=== PATIENT | male | born 1945 | race Caucasian/White ===

== ENCOUNTER → 2023-11-07 15:39 | Outpatient (REF) | payer MEDICARE, OTHER, SELFPAY | LOC: HWRAD 15:39 | PROVIDERS: ATTENDING PHYSICIAN Internal Medicine Cardiovascular Disease; FAMILY PHYSICIAN Family Medicine | DX: I35.0 Nonrheumatic aortic (valve) stenosis (principal); I71.21 Aneurysm of the ascending aorta, without rupture | CPT/HCPCS: 71250 ==

== ENCOUNTER → 2024-03-26 15:56 | Outpatient (REF) | payer MEDICARE, OTHER, SELFPAY | LOC: HWRCS 15:56 | PROVIDERS: ATTENDING PHYSICIAN Nurse Practitioner; FAMILY PHYSICIAN Family Medicine | DX: I48.0 Paroxysmal atrial fibrillation (principal); R06.09 Other forms of dyspnea; I25.10 Atherosclerotic heart disease of native coronary artery without angina pectoris; I35.0 Nonrheumatic aortic (valve) stenosis | CPT/HCPCS: 93306 ==

== ENCOUNTER → 2024-04-10 11:39 | Outpatient (REF) | payer MEDICARE, OTHER, SELFPAY | LOC: DHCBC/DCA 11:39 | PROVIDERS: ATTENDING PHYSICIAN Nurse Practitioner; FAMILY PHYSICIAN Family Medicine | DX: I35.0 Nonrheumatic aortic (valve) stenosis (principal); R06.09 Other forms of dyspnea; I48.0 Paroxysmal atrial fibrillation; I25.10 Atherosclerotic heart disease of native coronary artery without angina pectoris; I71.21 Aneurysm of the ascending aorta, without rupture; R06.02 Shortness of breath | CPT/HCPCS: 78452; 93017; A9500 ==

== ENCOUNTER 2024-04-19 06:17 | Day surgery (SDC) | payer MEDICARE, OTHER, SELFPAY ==
[2024-04-12 09:31] VITALS: BMI 30.7
[2024-04-19 06:20] VITALS: BP 154/81
[2024-04-19] MEDS: NSS 292 ML IV (06:46)
[2024-04-19 08:46] VITALS: BP 117/70
--- NOTE | 2024-04-19 08:46 | ITS.CL.CATH ---
[employer] - Catheterization
Cardiac Catheterization
Procedure Report:
CARDIAC CATHETERIZATION REPORT
Date of Procedure: 04/19/2024
Referring: Maria Luisa Turpin MD
Indication: Exertional dyspnea with ischemic stress test in patient with moderate aortic stenosis
�
HEMODYNAMIC DATA
AO: 98/68
LV: 142/16
There is a mean gradient of 36 mmHg across aortic valve consistent with moderate to severe aortic stenosis
�
LEFT VENTRICULOGRAPHY: Hyperdynamic left ventricular wall motion with EF 71%
�
CORONARY ANGIOGRAPHY
Dominance: Right
Left Main: Calcified with 70% terminal stenosis
LAD: The LAD is severely calcified. There is 60% mid LAD stenosis distal to the takeoff of the large first septal pantograph setter. There is 80% mid LAD stenosis distal to the takeoff of the medium sized first diagonal branch. The medium sized second
diagonal branch originates about 15 mm distal to this mid LAD lesion. The LAD distal to the takeoff of D2 is a diminutive vessel which does not reach the apex. This appears to be a congenital variant and not a chronic total occlusion.
Circumflex: The circumflex has 80% ostial stenosis. OM1 is a medium sized vessel and is free of disease. The circumflex terminates with a tiny OM 2
RCA: Large dominant severely calcified vessel. There is 30% proximal RCA stenosis. There is 60-70% mid RCA stenosis just proximal to the crux. The medium to large PDA has 70% ostial stenosis. There is a 60% right AV groove lesion distal to the
takeoff of a small RPL1 and proximal to the origin of a very large RPL 2. There is 60% ostial stenosis in the medium sized terminal RPL 3
�
Closure Device: None-the procedure was performed via the right radial artery. The Dustin's test was normal prior to the procedure.
�
Radiation (mGy): 390
DAP (cm2.Gy): 41
Fluoroscopy time: 7.1 minutes
�
CONCLUSIONS
1:�Moderate to severe aortic stenosis with mean gradient 36 mmHg
2:�Hyperdynamic left ventricular wall motion with EF 71%
3. Severe calcific multivessel CAD including left main coronary artery disease as described above
4. Recommend evaluation for CABG/AVR with optimal grafting to include D1, D2 if possible, OM1, RPDA, and RPL 2 bypass grafts
�
�
Copy to: Maria Luisa Turpin MD, Max Barnett,
�
Hernandez Zeng MD, FACC, [facility]
[2024-04-19] MEDS: NSS 1000 IV (08:54)
[2024-04-19] MEDS: TOPROL XL 25 MG PO (09:01)
[2024-04-19 09:02] VITALS: BP 118/78
[2024-04-19 09:18] VITALS: BP 124/70
[2024-04-19 09:48] VITALS: BP 107/70
[2024-04-19 11:18] VITALS: BP 133/78
== END 2024-04-19 11:30 | disposition home or self-care (01) ==
LOC: CATH 06:17
PROVIDERS: ATTENDING PHYSICIAN Internal Medicine Cardiovascular Disease; FAMILY PHYSICIAN Family Medicine; OTHER PHYSICIAN Internal Medicine Cardiovascular Disease
DX: I25.10 Atherosclerotic heart disease of native coronary artery without angina pectoris (principal); I25.84 Coronary atherosclerosis due to calcified coronary lesion; I48.0 Paroxysmal atrial fibrillation; G91.2 (Idiopathic) normal pressure hydrocephalus; I35.0 Nonrheumatic aortic (valve) stenosis; Z86.73 Personal history of transient ischemic attack (TIA), and cerebral infarction without residual deficits; J84.9 Interstitial pulmonary disease, unspecified; M33.13 Other dermatomyositis without myopathy; E03.9 Hypothyroidism, unspecified; E78.5 Hyperlipidemia, unspecified; M48.00 Spinal stenosis, site unspecified; R06.09 Other forms of dyspnea; I10 Essential (primary) hypertension; Z79.82 Long term (current) use of aspirin; Z79.890 Hormone replacement therapy; R06.02 Shortness of breath; R53.83 Other fatigue; R42 Dizziness and giddiness; I45.10 Unspecified right bundle-branch block
CPT/HCPCS: 93458; C1894; Q9967

== ENCOUNTER 2024-05-13 04:52 | Inpatient (IN) | payer MEDICARE, OTHER, SELFPAY ==
[2024-05-01 12:55] LABS: Urine Albumin Negative (Neg - Trace); Urine Bilirubin Negative (Negative); Urine Character Clear (Clear); Urine Color Yellow; Urine Glucose Negative (Negative); Urine Ketone Negative (Negative); Urine Leukocyte Negative (Negative); Urine Nitrite Negative (Negative); Urine Occult Blood Negative (Negative); Urine Urobilinogen Negative (Neg - 1+)
[2024-05-01 12:58] LABS: % Basophils 0.8 % (0-2); % Eosinophils 2.5 % (0-6); % Immature Granulocytes 0.3 % (0-0.5); % Lymphocytes 20.9 % (20.5-51.1); % Monocytes 8.5 % (1.7-9.3); Absolute Basophils 0.1 10^3/uL (0-0.2); Absolute Eosinophils 0.2 10^3/uL (0-0.7); Absolute Lymphocytes 1.5 10^3/uL (1.2-3.4); Absolute Monocytes 0.6 10^3/uL (0.1-0.6); Absolute Neutrophils 4.9 10^3/uL (1.4-6.5); Hematocrit 41.6 % (39.0-52.0); Hemoglobin 14.3 g/dL (13.0-18.0); Mean Corp Hgb Conc. 34.4 g/dL (33.0-37.0); Mean Corpuscular Hgb 30.4 pg (27.0-31.0); Mean Corpuscular Volume 88.3 fL (80.0-94.0); Mean Platelet Volume 10.3 fL (7.4-10.4); Nucleated Red Blood Cells % 0 % (-); Platelet Count 206 10^3/uL (130-400); Red Blood Cell Count 4.71 10^6/uL (4.70-6.10); Red Cell Dist. Width 13.2 % (11.5-14.5); White Blood Cell Count 7.3 10^3/uL (4.8-10.8)
[2024-05-01 13:17] LABS: APTT 28.4 Sec (23.4-35.0); INR 1.08; PT 14.1 Sec (11.4-14.6)
[2024-05-01 13:29] LABS: ALT (SGPT) 23 U/L (0-50); AST (SGOT) 24 U/L (17-59); Albumin 4.5 g/dl (3.5-5.0); Alkaline Phosphatase 80 U/L (38-126); Blood Urea Nitrogen 28 mg/dl (9-20); Calcium 9.8 mg/dl (8.4-10.2); Carbon Dioxide 24 mmol/L (22-30); Chloride 104 mmol/L (98-107); Direct Bilirubin 0.2 mg/dl (0.0-0.4); Glucose 105 mg/dl (70-99); Potassium 4.3 mmol/L (3.5-5.1); Sodium 137 mmol/L (135-145); Total Bilirubin 0.5 mg/dl (0.2-1.3); Total Protein 7.5 g/dl (6.3-8.2); eGFR > 60.00
[2024-05-01 13:40] LABS: Glycohemoglobin (HgbA1c) 6.4 % (4.0-5.6)
--- NOTE | 2024-05-01 14:19 | CM ---
spoke to to pt in PAT, we discussed pre op CT surgery teaching including sternal and driving restrictions. he is prev indep, lives with his in a 2 story home with 4 steps to enter. he has a cane and a walker to use if needed. he has the ct
surgery book, soap and instructions. he is agreeable to a f/u visit from the ct transitional care nurse after dc. plan is fgor AVR/CABG 05/13, cn role explained and all questions answered
[2024-05-13] VITALS (15 sets, daily range): BP systolic 70–138; BP diastolic 49–102
[2024-05-13] MEDS: BACTROBAN 2% OINTMENT 1 APPLIC NASAL ×2 (07:09→21:41)
[2024-05-13] MEDS: LOPRESSOR 25 MG PO (07:09)
[2024-05-13] MEDS: PROTONIX 40 MG PO (07:09)
[2024-05-13] MEDS: MAGNESIUM OXIDE 500 MG PO (07:09)
--- NOTE | 2024-05-13 09:04 | W.CVOR.SURPR ---
CVOR Surgeon Immed Pre Op
-
I have examined this patient prior to performance of the scheduled procedure.
The patient's condition is unchanged from the time of the dictated/written History and
Physical and the patient is able to undergo the scheduled procedure.
[2024-05-13 09:21] LABS: Urine Albumin Negative (Neg - Trace); Urine Bilirubin Negative (Negative); Urine Character Clear (Clear); Urine Color Yellow; Urine Glucose Negative (Negative); Urine Ketone Negative (Negative); Urine Leukocyte Negative (Negative); Urine Nitrite Negative (Negative); Urine Occult Blood Negative (Negative); Urine Specific Gravity 1.005 (<1.030); Urine Urobilinogen Negative (Neg - 1+)
[2024-05-13 09:24] LABS: ACT+ - POC 93 Seconds (82-134)
--- NOTE | 2024-05-13 12:03 | CM ---
pt in OR today, cm to follow.
[2024-05-13 12:04] LABS: ACT+ - POC 683 Seconds (82-134)
[2024-05-13 12:24] LABS: B.E. - POC -1.1 mmol/L; Glucose - POC 122 mg/dl (65-99); HCO3 - POC 24 mmol/L (21-29); Hematocrit - POC 36 % PCV (42-52); Hemodilution- POC No; Hemoglobin Calculated - POC 12.2; Ionized Calcium - POC 1.25 mmol/L (1.12-1.27); O2 Saturation %Calculated-POC 99.8 5 (92-96); PCO2 - POC 40 mmHg (35-45); PO2 - POC 215 mmHg (80-100); POC Comment PRE; Sodium - POC 141 mmol/L (135-145); pH - POC 7.39 (7.35-7.45)
[2024-05-13 12:42] LABS: ACT+ - POC 716 Seconds (82-134)
[2024-05-13 13:01] LABS: B.E. - POC 1.3 mmol/L; Glucose - POC 120 mg/dl (65-99); HCO3 - POC 27 mmol/L (21-29); Hematocrit - POC 24 % PCV (42-52); Hemodilution- POC Yes; Hemoglobin Calculated - POC 8.2; O2 Saturation %Calculated-POC 99.9 5 (92-96); PCO2 - POC 44 mmHg (35-45); PO2 - POC 353 mmHg (80-100); POC Comment CPB; Potassium - POC 5.6 mmol/L (3.6-5.0); Sodium - POC 139 mmol/L (135-145); pH - POC 7.39 (7.35-7.45)
[2024-05-13 13:17] LABS: ACT+ - POC 629 Seconds (82-134)
[2024-05-13 13:35] LABS: B.E. - POC 1.4 mmol/L; Glucose - POC 138 mg/dl (65-99); HCO3 - POC 27 mmol/L (21-29); Hematocrit - POC 28 % PCV (42-52); Hemodilution- POC Yes; Hemoglobin Calculated - POC 9.7; Ionized Calcium - POC 1.11 mmol/L (1.12-1.27); O2 Saturation %Calculated-POC 99.9 5 (92-96); PCO2 - POC 45 mmHg (35-45); PO2 - POC 316 mmHg (80-100); POC Comment CPB; Sodium - POC 140 mmol/L (135-145); pH - POC 7.38 (7.35-7.45)
[2024-05-13 13:47] LABS: ACT+ - POC 595 Seconds (82-134)
[2024-05-13 14:16] LABS: B.E. - POC 0.9 mmol/L; Glucose - POC 149 mg/dl (65-99); HCO3 - POC 26 mmol/L (21-29); Hematocrit - POC 26 % PCV (42-52); Hemodilution- POC Yes; Hemoglobin Calculated - POC 8.7; Ionized Calcium - POC 1.07 mmol/L (1.12-1.27); O2 Saturation %Calculated-POC 99.4 5 (92-96); PCO2 - POC 41 mmHg (35-45); PO2 - POC 156 mmHg (80-100); POC Comment CPB; Potassium - POC 5.4 mmol/L (3.6-5.0); Sodium - POC 139 mmol/L (135-145); pH - POC 7.41 (7.35-7.45)
[2024-05-13 14:26] LABS: ACT+ - POC 507 Seconds (82-134)
[2024-05-13 14:59] LABS: B.E. - POC 1.7 mmol/L; Glucose - POC 144 mg/dl (65-99); HCO3 - POC 26 mmol/L (21-29); Hematocrit - POC 26 % PCV (42-52); Hemodilution- POC Yes; Hemoglobin Calculated - POC 8.8; O2 Saturation %Calculated-POC 99.9 5 (92-96); PCO2 - POC 39 mmHg (35-45); PO2 - POC 316 mmHg (80-100); POC Comment CPB; Potassium - POC 6.2 mmol/L (3.6-5.0); Sodium - POC 139 mmol/L (135-145); pH - POC 7.44 (7.35-7.45)
[2024-05-13 15:10] LABS: ACT+ - POC 650 Seconds (82-134)
[2024-05-13 15:30] LABS: B.E. - POC 0.5 mmol/L; Glucose - POC 220 mg/dl (65-99); HCO3 - POC 25 mmol/L (21-29); Hematocrit - POC 30 % PCV (42-52); Hemodilution- POC Yes; Hemoglobin Calculated - POC 10.1; Ionized Calcium - POC 1.09 mmol/L (1.12-1.27); O2 Saturation %Calculated-POC 99.7 5 (92-96); PCO2 - POC 39 mmHg (35-45); PO2 - POC 195 mmHg (80-100); POC Comment CPB; Potassium - POC 4.6 mmol/L (3.6-5.0); Sodium - POC 141 mmol/L (135-145); pH - POC 7.42 (7.35-7.45)
[2024-05-13 15:47] LABS: ACT+ - POC 546 Seconds (82-134)
[2024-05-13 16:08] LABS: B.E. - POC 0.6 mmol/L; Glucose - POC 160 mg/dl (65-99); HCO3 - POC 26 mmol/L (21-29); Hematocrit - POC 29 % PCV (42-52); Hemodilution- POC Yes; Hemoglobin Calculated - POC 9.9; Ionized Calcium - POC 1.11 mmol/L (1.12-1.27); O2 Saturation %Calculated-POC 99.7 5 (92-96); PCO2 - POC 43 mmHg (35-45); PO2 - POC 211 mmHg (80-100); POC Comment WARM; Potassium - POC 4.5 mmol/L (3.6-5.0); Sodium - POC 142 mmol/L (135-145); pH - POC 7.38 (7.35-7.45)
[2024-05-13 16:19] LABS: ACT+ - POC 535 Seconds (82-134)
[2024-05-13 16:35] LABS: B.E. - POC 0.1 mmol/L; Glucose - POC 146 mg/dl (65-99); HCO3 - POC 25 mmol/L (21-29); Hematocrit - POC 27 % PCV (42-52); Hemodilution- POC Yes; Hemoglobin Calculated - POC 9.1; Ionized Calcium - POC 1.06 mmol/L (1.12-1.27); O2 Saturation %Calculated-POC 99.6 5 (92-96); PCO2 - POC 42 mmHg (35-45); PO2 - POC 186 mmHg (80-100); POC Comment CPB; Potassium - POC 4.5 mmol/L (3.6-5.0); Sodium - POC 143 mmol/L (135-145); pH - POC 7.39 (7.35-7.45)
[2024-05-13 16:40] LABS: ACT+ - POC 126 Seconds (82-134)
[2024-05-13 17:01] LABS: B.E. - POC -3.1 mmol/L; Glucose - POC 128 mg/dl (65-99); HCO3 - POC 23 mmol/L (21-29); Hematocrit - POC 25 % PCV (42-52); Hemodilution- POC Yes; Hemoglobin Calculated - POC 8.5; PCO2 - POC 42 mmHg (35-45); PO2 - POC 111 mmHg (80-100); POC Comment POST; Potassium - POC 3.8 mmol/L (3.6-5.0); Sodium - POC 143 mmol/L (135-145); pH - POC 7.34 (7.35-7.45)
--- NOTE | 2024-05-13 17:10 | W.IMMPOSTOP ---
Addendum entered and electronically signed by Misael Kingston MD 05/13/24 18:59:
[id number]
Original Note:
Surgical Immed Post Op Note
-
CARDIAC SURGERY OPERATIVE NOTE:
Preoperative Dx:
Multivessel CAD
Dwnqbcoo-hl-whawfl aortic stenosis (P/M: 49/29 on ECHO, mean 36mmHg at cath)
Enoy-fm-uksqijua MR w/ dense MAC
Postoperative Dx:
Same
Severe pleural/pericarditis w/ dense B/L pleural and pericardial adhesions
Procedures:
1) Median sternotomy
2) Takedown of NANCY (narrow pedicle; extrapleural harvest secondary to dense pleural adhesions
3) Endoscopic harvest/prep of LLE GSV
4) Extensive lysis of circumferential pericardial adhesions (off/on CPB)
5) CABG x 4 (NANCY to LAD, GSV to D, GSV to OM, GSV to RPDA)
6) AVR (#25 Inspiris Resilia)
Surgeon:
Misael Kingston M.D.
Assistants:
Mei Sanchez P.A.-C.; endoscopic LLE GSV harvest/prep; librarian assistant throughout, closure
Merlyn Donovan P.A.-C.; closure of LLE GSV harvest incisions
Priyank Arriaza-CBi; closure (qtnysw-lplc-omka)
Perfusion:
Napoleon Gilbert CBiC.P.; CPB: 252min, XC: 208min
Anesthesia:
Robert Guillen M.D.
Findings:
Dense B/L pleural adhesions
Dense, circumferential pericardial adhesions w/ scattered calcifications
NANCY was healthy, but small caliber vessel, with brisk blood flow; ELD 1.5mm
GSV was healthy conduit w/ ELD 2.5mm-3.0mm
LAD was visible on epicardial surface. It was a small vessel with extremely dense calcifications throughout its course; ELD 1.2mm at midpoint anastomosis
D1 was visible on epicardial surface. It was a small vessel with extremely dense calcifications throughout its course; ELD 1.5mm at upy-cb-mhtkqk anastomosis
OM was visible on the epicardial surface, despite a small but favorable surface profile, on arteriotomy, this vessel had an ELD of < 1mm. It would not accomodate at 1mm shunt. Fortunately, its shen at this location were relatively normal
RPDA was visible on the epicardial surface. It was a reasonably sized vessel with extremely dense calcifications throughout its course. It had an ELD 1.75mm at proximal anastomosis. Unfortunately, this vessel suffered longitudinal tear upon
pressurization of the GSV. Thankfully, this was able to be successfully addressed w/ takedown of the index operation, and re-anastomosis over a longer arteriotomy w/ incorporation of the tear.
AV was trileaflet w/ dense leaflet calcifications. There was minor annular extensions of calcifications circumferentially.
Post-MARKOS: Well seated AVR w/o AI/PVL, mean gradient 6mmHg, normal LV function w/ LVEF 60-65%, normal RV. Ioja-db-vdmiikdn MR.
Transfusion:
1pk PLTS
Implants:
CT x 4
Sternal wires x 10
Condition:
71 sinus w/ isoelectric STs. 105/52. 34/17. CVP 14. CO/CI: 3.9/1.83
GTTS: levophed 8, dobutamine 3, precedex 0.5, insulin 1
Stable/guarded to CVICU
--- NOTE | 2024-05-13 17:52 | W.PN.UPDATE ---
Update Note
Progress Note Update
78-year-old male electively admitted on 05/13/2024 for aortic valve replacement, CABG due to severe aortic stenosis and triple-vessel coronary disease with preserved EF
IV fluids: 2000
U.O.:� 740
Blood:� 1 plt
Wires:� 2 V-wires
Gtts: Levo, Precedex, Insulin
�
NEURO: sedated on Precedex, pupils +3mm B/L
RESP: #8OT @24cm> 500/60%/08/22. Lungs clear B/L. 2 mediastinal (35cc on arrival) and R/L pleural (90cc on arrival) chest tubes to -20cm suction. Sanguineous drainage
CV: RRR +S1, S2, no S3, no�rub, no murmur. Aquacell to median sternotomy. RIJ w/Henderson locked @45cm. PA ; CVP 12; C.O XX/CI XX
ABD: round, soft, no BS
EXT: no edema, +2/4 DP pulses B/L, no femoral bruit, LLE NORMAN wrap intact; left radial A-line intact
: Norman with clear yellow urine
�
A/P: POD #0 s/p AVR (#25 Inspiris Resilia), CABG x 4 (NANCY to LAD, GSV to Diag, GSV to OM, GSV to RPDA) with extensive lysis of circumferential pericardial adhesions (off/on CPB)
MARKOS: EF�65%
- wean Levophed as tolerated
- wean and extubate
- will need instruction regarding antibiotic prophylaxis for dental and invasive procedures
# CAD
- will require ASA/Plavix, statin, beta-santiago
�
# acute surgical blood loss anemia-expected
- trend CBC
�
# Hx left lacunar CVA
# Hx PATENT LEGAL ASSISTANT hydrocephalus w/shunt
- assess neuro status as awakens from anesthesia
# Hypothyroidism
- resume Synthroid 12.5mg daily 05/14
�
# hyperglycemia, pre-diabetes (A1C 6.4)
- insulin infusion x 24h
- on no home meds
�
--- NOTE | 2024-05-13 18:00 | PTCARENOTE ---
Post Op: AVR/CABG x4 (MI--LDA, GSV--D,OM,RPDA), CVOR @ 0830 given 1 unit of Plt. CVOR @ 1740 Intubated FIO2 60%, CT x4 R&L P, MS x2, Rt IJ cordis, [place], Lt radial [place], garcia, Levo @10, Dobu @ 3, Insulin @ 1, Percedex @ 0.5, Cardine @ 5 but stop
once pt arrived. Post op hgb 8.6 order 1 unit of PRBC, hypotension given 250ml LR bolus, Remi chloride 1g x1, CO/CI 3.76/1.75 post op. CI repeat 1.76-->1.19 increased dobu 3-->5.
[2024-05-13 18:05] LABS: B.E. -3.1 mmol/L; HCO3 22.7 mmol/L (21-28); Ionized Calcium 1.14 mMOL/L (1.15-1.33); PCO2 43 mmHg (35-48); PO2 128 mmHg (83-108); Potassium 4.1 mMOL/L (3.5-5.1); Sodium 138 mMOL/L (136-145); pH 7.33 (7.35-7.45)
[2024-05-13 18:07] LABS: Glucose - Point of Care 158 mg/dl (70-99)
[2024-05-13 18:08] LABS: Hematocrit 24.1 % (39.0-52.0); Hemoglobin 8.6 g/dL (13.0-18.0); Platelet Count 137 10^3/uL (130-400)
[2024-05-13 18:10] LABS: Mixed Venous O2 Saturation 53.1 %
[2024-05-13 18:15] LABS: APTT 34.9 Sec (23.4-35.0); INR 1.64; PT 19.3 Sec (11.4-14.6)
[2024-05-13 18:18] LABS: Blood Urea Nitrogen 22 mg/dl (9-20); Glucose 135 mg/dl (70-99); Magnesium 3.2 mg/dl (1.6-2.3)
--- NOTE | 2024-05-13 18:19 | CON.INTV ---
Consultation
Consultation Request
Date/Time Consultation Requested: 05/13/2024
Date/Time Consultation Performed: 05/13/2024
Requesting Provider: Dr. Kingston
Performing Provider: Dr. Enrique Berger
Reason for Consultation: Postoperative ICU care status post AVR and CABG
Medical History
Past Medical History
Past Medical History: Other ( see assessment and plan section)
Social History
Tobacco: Non-smoker
Alcohol: Occasional (Rare)
Drug: None
Employment: Retired
Family History
Family History: Unable to Obtain
Allergies / Home Medications
Allergies
Allergy/AdvReac Type Severity Reaction Status Date / Time
No Known Allergies Allergy Verified 04/19/24 06:52
Home Medications
�Medication �Instructions �Recorded �Confirmed �Last Taken �Type
Endotheal Defense 1 cap PO DAILY Supplement 06/04/20 05/13/24 05/10/24 17:00 History
levothyroxine 25 mcg tablet 12.5 mcg PO DAILY Thyroid 06/04/20 05/13/24 05/12/24 08:00 History
Asilica Complex 1 unit PO DAILY 04/11/24 05/13/24 05/10/24 17:00 History
Elderberry 2 gum PO DAILY 04/11/24 05/13/24 05/10/24 08:00 History
Heal And Soothe 2 unit PO DAILY 04/11/24 05/13/24 05/10/24 History
Lipasonin Melatonin 1 unit PO HS 04/11/24 05/13/24 05/10/24 History
Lj 100 1 unit PO DAILY 04/11/24 05/13/24 05/10/24 History
ashwagandha extract 2 tab PO DAILY 04/11/24 05/13/24 05/10/24 08:00 History
pcrooix-nrjvxcjze-ynpl 333 mg-133 2 tab PO QPM 04/11/24 05/13/24 05/10/24 17:00 History
mg-5 mg tablet
oregano oil 1 dose PO QPM 04/11/24 05/13/24 05/10/24 History
atorvastatin 40 mg tablet 40 mg PO QPM #90 tabs 04/19/24 05/13/24 05/12/24 08:00 Rx
metoprolol succinate 25 mg 25 mg PO DAILY #90 tabs 04/19/24 05/13/24 05/12/24 Rx
tablet,extended release 24 hr
Antartic Krill Oil 1 unit PO DAILY 04/29/24 05/13/24 05/10/24 08:00 History
Berberine Gluco Gold 1 unit PO BID 04/29/24 05/13/24 05/10/24 17:00 History
Dim + Bioperine 1 unit PO BID 04/29/24 05/13/24 05/10/24 17:00 History
Endotheal Defense Pom Plus 1 unit PO QPM 04/29/24 05/13/24 05/10/24 17:00 History
Eyesyl + Bioperine 2 units PO DAILY 04/29/24 05/13/24 05/10/24 History
Fungus Eliminator 2 units PO DAILY 04/29/24 05/13/24 05/10/24 History
Gi Advantage 2 units PO QPM 04/29/24 05/13/24 05/10/24 History
Juvenon Blood Benny 7 3 units PO DAILY 04/29/24 05/13/24 05/10/24 History
Stratton Q Plus Max 2 unit PO DAILY 04/29/24 05/13/24 05/10/24 History
Qsartan Bromaline 2 units PO QPM 04/29/24 05/13/24 05/10/24 History
Respir-All 3 units PO DAILY 04/29/24 05/13/24 05/10/24 History
S-acetylglutathione 100 mg tablet 100 mg PO DAILY 04/29/24 05/13/24 05/10/24 History
Silica Complex 1 unit PO BID 04/29/24 05/13/24 05/10/24 History
Solgar Iron Free Formula V 1 unit PO DAILY 04/29/24 05/13/24 05/10/24 History
Super Healthy Prostate Plus 2 units PO QPM 04/29/24 05/13/24 05/10/24 History
Vitamin K Triple Play 1 unit PO DAILY 04/29/24 05/13/24 05/10/24 History
aspirin 81 mg tablet,delayed 81 mg PO DAILY 04/29/24 05/13/24 05/12/24 08:00 History
release
cholecalciferol (vitamin D3) 125 125 mcg PO DAILY 04/29/24 05/13/24 05/10/24 17:00 History
mcg (5,000 unit) tablet (Vitamin
D3)
mycophenolate mofetil 250 mg 250 mg PO DAILY 04/29/24 05/13/24 05/10/24 History
capsule
zinc 50 mg tablet 50 mg PO DAILY 04/29/24 05/13/24 05/10/24 History
Review of Systems
-
Unable to Obtain full review of systems at this time due to: Patient Intubation
Vitals / Labs / Diagnostic Testing
Vital Signs
Temp Pulse Resp BP Pulse Ox
97 F 73 18 137/78 98
05/13/24 18:16 05/13/24 18:00 05/13/24 18:16 05/13/24 06:10 05/13/24 18:00
Lab Data
05/13/24 17:57
Laboratory Results
05/13/24
17:57
pH 7.33 L
pCO2 43
pO2 128 H
HCO3 22.7
O2 Delivery Level
Diagnostic Testing:
Physical Exam
-
HEENT: Normocephalic and Other (ET tube in place without secretions)
Cardiovascular: S1/S2 and Regular Rhythm
Respiratory: Non-Labored Respirations and Other (Chest tube in place, bloody drainage noted. No airleak)
GI: Soft and Non Distended
Neurology: Other (Intubated, mechanical ventilation. Sedated)
Skin: Warm
General: Comfortable
Assessment
-
Status post CABG x 4/AVR/extensive lysis of single pharyngeal pericardial adhesions 05/13/[address] Kingston
Postoperative mechanical ventilation
Postoperative anemia
Conditions present prior admission:
Multivessel coronary artery disease
Dermatomyositis-on low-dose CellCept
Mild interstitial lung disease
Atrial fibrillation-paroxysmal
Raynaud's syndrome
History of pericarditis
Prior MRSA infection
Right hip arthritis
Hyperlipidemia
BPH
Osteoarthritis of acromioclavicular joint
NPH
History of left lacunar CVA
Hypothyroidism
Severe aortic stenosis
Aneurysm of ascending aortic
History of right inguinal hernia repair
Right total hip arthroplasty
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
Assessment and plan:
He is doing well postop-currently on mechanical ventilation and appears comfortable.
ABG reviewed: Adequate oxygenation ventilation
Continue SIMV mode with no change
Spontaneous breathing trial per protocol once sedation wears off.
Anemia noted-no evidence of acute bleeding
Follow H&H serially-currently receiving 1 unit of packed red blood cells. Status post platelet transfusion.
Transfuse as necessary
Hemodynamics -continue with support
Currently on low-dose Levophed and dobutamine
Follow urinary output.
Renal function is normal.
Chest tube with no excessive drainage-no air leak. Bloody drainage noted. Will follow closely.
Chest x-ray reviewed 05/13/2024: Low lung volumes, ET tube in place, with no pneumothorax or fluid collections. Left lower lobe pleural effusion versus subsegmental atelectasis.
Remain nothing by mouth
Head of the bed elevation
Mild Interstitial lung disease: Appears stable baseline.
Patient is on CellCept for his diagnosis of Dermatomyositis-follows up at [facility].
Locally with Dr. Bishop.
Glycemic control per protocol
DVT prophylaxis when safe from the surgical perspective.
Critical care statement: A total of 32 minutes of critical care time was provided for this patient today. This includes management of unstable vital signs, evaluation of the patient at bedside, reviewing the patient's pertinent medical records
including ventilator settings, arterial blood gases, radiographs, microbiology, laboratory evaluations and discussion with primary team, critical care nursing, and respiratory therapy.
[2024-05-13] MEDS: NEURONTIN PO (18:52)
[2024-05-13] MEDS: PACERONE PO (18:53)
[2024-05-13] MEDS: TYLENOL PO (18:53)
[2024-05-13] MEDS: SYNTHROID PO (18:53)
[2024-05-13] MEDS: NSS IV (18:53)
[2024-05-13] MEDS: VITAMIN D3 (cholecalciferol) PO (18:53)
[2024-05-13] MEDS: LIPITOR PO (18:53)
[2024-05-13 18:55] LABS: Glucose - Point of Care 173 mg/dl (70-99)
[2024-05-13] MEDS: CALCIUM CHLORIDE 10% SYRINGE 50 MG IV (18:58)
[2024-05-13] MEDS: CALCIUM CHLORIDE 10% SYRINGE 50 ML IV (18:58)
--- NOTE | 2024-05-13 19:28 | PTCARENOTE ---
Addendum entered by Joaquin Balbuena RN 05/13/24 19:29:
to add, received pt with 1 unit of PRBC currently infusing.
Original Note:
assumed care of patient @ 1900. Received pt lying in bed, intubated, sedate. Pupils equal and reactive to light. CPOT 0 . NSR on tele monitor. Weak pedal pulses. V wire set to 40,15,2. BP 100s/50s, PAP 20s/10s, CVP around 8.0 ET tube 23 @ lip SIMV
12,500, 5/5, 40%. Lungs diminished anteriorly. 4 chest tubes present 2 meds L and R pleural to wall suction, no air leak, tidaling or crepitus noted. BS hypoactive. Norman present draining good amount of clear yellow urine. mid sternal with aquacel
CDI, L SVG sites covered with deepa wrap CDI. R IJ cordis with swan at 50, L radial a line, R ac PIV. all central lines zeroed and flushed. Received with levo at 10, dobut at 3, precedex at .5, insulin per protocol. notified CLIENT RELATIONS REPRESENTATIVE of index of 1.19,
dobutamine increased to 5.
[2024-05-13] MEDS: SODIUM BICARBONATE 50 MEQ IV ×2 (19:32→22:21)
--- NOTE | 2024-05-13 19:52 | PTCARENOTE ---
1 amp bicarb and additional unit of blood given per CTPA
[2024-05-13 19:57] LABS: Glucose - Point of Care 132 mg/dl (70-99)
[2024-05-13] MEDS: CALCIUM CHLORIDE 10% SYRINGE 60 MG IV (20:38)
[2024-05-13 21:03] LABS: Glucose - Point of Care 141 mg/dl (70-99)
--- NOTE | 2024-05-13 21:36 | PTCARENOTE ---
pt awake and following commands. precedex turned off, CPAP trial initiated by RT
[2024-05-13 22:00] LABS: Glucose - Point of Care 129 mg/dl (70-99)
[2024-05-13 22:13] LABS: HCO3 22.2 mmol/L (21-28); Ionized Calcium 1.37 mMOL/L (1.15-1.33); O2 Saturation % 99.6 % (94-98); PCO2 35 mmHg (35-48); PO2 118 mmHg (83-108); Potassium 4.3 mMOL/L (3.5-5.1); pH 7.41 (7.35-7.45)
[2024-05-13] MEDS: LEVOPHED 250 IV (22:14)
--- NOTE | 2024-05-13 22:30 | PTCARENOTE ---
pt extubated to 6L NC without incident
[2024-05-13 22:32] LABS: Hematocrit 30.3 % (39.0-52.0); Platelet Count 138 10^3/uL (130-400)
--- NOTE | 2024-05-13 22:38 | RESPNOTE ---
pt extubated at 2230 per MD order. pt suctioned down ETT and orally prior to extubation, pt extubated without incident. pt able to vocalize, no stridor present. placed on 6L NC at this time, tolerating well
[2024-05-13] MEDS: LOW STRENGTH ASPIRIN 81 MG PO (23:02)
[2024-05-13 23:14] LABS: Glucose - Point of Care 121 mg/dl (70-99)
[2024-05-13] MEDS: NEURONTIN 100 MG PO (23:45)
[2024-05-13] MEDS: TYLENOL 1000 MG PO (23:45)
[2024-05-13] MEDS: SENOKOT-S PO (23:45)
--- NOTE | 2024-05-13 23:55 | PTCARENOTE ---
pt was talking on phone with and started to feel nauseous. pt had a syncopal episode. Bp 70/50 levo increased to 20, HOB down, BP increased 100/55, pt AAOx3, tolerating sitting up in bed, call kelly within reach
[2024-05-14] VITALS (29 sets, daily range): BP systolic 50–148; BP diastolic 24–73; PULSE 86; O2SAT 95; BMI 31.9
[2024-05-14] MEDS: PACERONE PO (00:21)
[2024-05-14 01:05] LABS: Glucose - Point of Care 119 mg/dl (70-99)
[2024-05-14] MEDS: ANCEF 5 IV ×3 (01:10→16:11)
--- NOTE | 2024-05-14 03:00 | PTCARENOTE ---
EKG and routine labs complete, CHG bath completed, notified CT PA of low UO, pt remains on high dose levo, no other change in assessment.
[2024-05-14 03:13] LABS: Glucose - Point of Care 148 mg/dl (70-99)
[2024-05-14 03:20] LABS: Mixed Venous O2 Saturation 50.7 %
[2024-05-14 03:22] LABS: Hematocrit 27.3 % (39.0-52.0); Ionized Calcium 1.23 mMOL/L (1.15-1.33); Mean Corp Hgb Conc. 36.6 g/dL (33.0-37.0); Mean Corpuscular Hgb 29.9 pg (27.0-31.0); Mean Corpuscular Volume 81.5 fL (80.0-94.0); Mean Platelet Volume 10.6 fL (7.4-10.4); Platelet Count 131 10^3/uL (130-400); Red Blood Cell Count 3.35 10^6/uL (4.70-6.10); Red Cell Dist. Width 13.9 % (11.5-14.5); White Blood Cell Count 11.9 10^3/uL (4.8-10.8)
--- NOTE | 2024-05-14 03:26 | W.PN.CT ---
Today's Communication / Plan
-
Plan:
-No major issues overnight. Hemodynamically and neurologically intact. Did have vasovagal episode while on the phone with his postextubation
-Successfully extubated on 05/13/24 @ 2230
-On Levophed gtt @, dobutamine @ 5, Levophed @ 7, and insulin gtt per protocol
-Last CI 1.67, MVO 50.7% U/O since OR 500 mL
-Cont. current meds (ASA, Plavix, Lipitor; Amiodarone and Lopressor on hole while on Dobutamine @ 5)
-Weaned off dobutamine and levophed
-D/C swan and a-line once off dobutamine and Levophed
-Maintain garcia given postop HELENA (1.4)
-Telemetry phase today once off insulin gtt
-Monitor chest tube drainage: 2Meds 170/205, 2pls 225/225
-Maintain cordis
-Maintain temporary wires (will d/c before home)
-OOB into chair/Ambulate
Assessment / Plan
-
Assessment:
-S/p Median sternotomy/CABG x 4 (NANCY to LAD, GSV to D, GSV to OM, GSV to RPDA)/Endoscopic harvest/prep of LLE GSV/AVR (#25 Inspiris Resilia)/Extensive lysis of circumferential pericardial adhesions (off/on CPB), by Dr. Kingston, 05/13/24, pod#1
-Severe 3v CAD/70% distal LM
-Nkrviobt-mv-uuewzb aortic stenosis (P/M: 49/29 on ECHO, mean 36mmHg at cath)
-Nspu-rb-qgxkydlq MR w/ dense MAC
-LVEF 60-65% per intraop MARKOS
-PAF
-HTN
-HLD
-Class 1 obesity (BMI 30)
-Prediabetes (hgb A1C 6.4)
-Hypothyroidism
-BPH
-Hx Pericarditis
-Hx MRSA
-Raynaud's syndrome
-Osteoarthritis of Left acromioclavicular joint
-Right hip arthritis
-Spinal stenosis
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
-Mild interstitial lung disease
-Hx of left lacunar CVA
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
-S/p right inguinal hernia repair
-S/p Right total hip arthroplasty
-Acute postop blood loss/Anemia (received 3u PRBC's, 1 {5pk} plts )
-Acute postop atelectasis
-Acute postop hypovolemia with subsequent hypervolemia
-Acute postop HELENA
-Acute postop vasovagal episode, with brief confusion
Discussed patient care with: Cardiology, Nursing, Respiratory Therapy, Pharmacy and Care Team
Subjective
Procedure
S/p Median sternotomy/CABG x 4 (NANCY to LAD, GSV to D, GSV to OM, GSV to RPDA)/Endoscopic harvest/prep of LLE GSV/AVR (#25 Inspiris Resilia)/Extensive lysis of circumferential pericardial adhesions (off/on CPB), by Dr. Kingston, 05/13/24, pod#1
-
Date of Service: May 14, 2024
Pt c/o incisional pain, otherwise feels well
Objective Data
-
Lab Results
05/14/24 03:02
PT 19.3 Sec (11.4-14.6) H 05/13/24 17:57
INR 1.64 05/13/24 17:57
APTT 34.9 Sec (23.4-35.0) 05/13/24 17:57
Vital Signs
Vital Signs
Temp Pulse Resp BP Pulse Ox
99.0 F 87 22 81/47 92
05/14/24 03:00 05/14/24 03:15 05/14/24 03:15 05/14/24 02:01 05/14/24 03:15
CT Intake/Output/Weight
05/13/24 05/13/24 05/14/24
06:59 18:59 06:59
Intake Total 329.3 / 1570.3 1241.0 / 1570.3
Output Total 225 / 900 675 / 900
Balance 104.3 / 670.3 566.0 / 670.3
SaO2: 92 (4L)
Physical Exam
-
General: Awake, Oriented and AOx3
Cardiovascular: Regular rate & rhythm, No Murmurs, No Rub and No Gallop
Respiratory: Decreased Breath Sounds (at bases, otherwise clear)
Sternum: Stable
Incision: Clean, Dry, Intact and Dressing Intact
Extremities: Other (trace edema)
Data Reviewed
-
Lab Results: Results Reviewed
Medications: Active Meds Reviewed
Chest X-Ray: Report Reviewed and Image Reviewed
CT Scan: Report Reviewed and Image Reviewed
ECG: Report Reviewed and Image Reviewed
[2024-05-14 03:35] LABS: INR 1.33; PT 16.3 Sec (11.4-14.6)
[2024-05-14 03:40] LABS: Blood Urea Nitrogen 27 mg/dl (9-20); Calcium 9.2 mg/dl (8.4-10.2); Carbon Dioxide 23 mmol/L (22-30); Chloride 108 mmol/L (98-107); Estimated Creatinine Clearance 46 ml/min; Glucose 136 mg/dl (70-99); Magnesium 2.6 mg/dl (1.6-2.3); Potassium 4.6 mmol/L (3.5-5.1); Sodium 141 mmol/L (135-145); eGFR 51.77
[2024-05-14] MEDS: LEVOPHED 250 IV (03:49)
[2024-05-14 04:06] LABS: Glucose - Point of Care 124 mg/dl (70-99)
--- NOTE | 2024-05-14 04:26 | PTCARENOTE ---
1 unit PRBC ordered by MARIA M VICTOR and started at [id number]
[2024-05-14 04:58] LABS: Glucose - Point of Care 121 mg/dl (70-99)
[2024-05-14] MEDS: SYNTHROID 12.5 MCG PO (06:12)
[2024-05-14] MEDS: TYLENOL 1000 MG PO ×3 (06:12→21:07)
[2024-05-14] MEDS: CALCIUM CHLORIDE 10% SYRINGE 60 MG IV (06:18)
[2024-05-14 07:31] LABS: Glucose - Point of Care 104 mg/dl (70-99)
[2024-05-14 07:31] LABS: Glucose - Point of Care 120 mg/dl (70-99)
[2024-05-14 07:47] LABS: B.E. -1.6 mmol/L; HCO3 22.9 mmol/L (21-28); Ionized Calcium 1.37 mMOL/L (1.15-1.33); O2 Saturation % 96.9 % (94-98); PCO2 37 mmHg (35-48); PO2 69 mmHg (83-108); Potassium 4.5 mMOL/L (3.5-5.1); Sodium 137 mMOL/L (136-145)
[2024-05-14] MEDS: PLAVIX 75 MG PO (07:58)
[2024-05-14] MEDS: LOW STRENGTH ASPIRIN 81 MG PO (07:58)
[2024-05-14] MEDS: BACTROBAN 2% OINTMENT 1 APPLIC NASAL ×2 (08:02→21:08)
[2024-05-14] MEDS: VITAMIN D3 (cholecalciferol) 125 MCG PO (08:03)
[2024-05-14] MEDS: SENOKOT-S 1 TABLET PO ×2 (08:03→21:07)
[2024-05-14] MEDS: PROTONIX 40 MG PO (08:03)
[2024-05-14] MEDS: LIDOCAINE 4% PATCH 1 PATCH TOPICAL (08:03)
[2024-05-14] MEDS: NEURONTIN 100 MG PO ×3 (08:03→21:07)
--- NOTE | 2024-05-14 08:21 | W.PN.ANS.POP ---
Anesthesia Post Operative
- Anesthesia Post Op Note
Vital Signs Stable-See Nursing Note: Yes
Airway Patent: Yes
Adequate Pain Control: Yes
Change in Mental Status: No
Current Postoperative Nausea & Vomiting: No
Anesthesia Complications: No
General Anesthetic Recall: No
Unplanned Admission: No
Post Op Hydration Adequate: Yes
[2024-05-14 08:23] LABS: Glucose - Point of Care 110 mg/dl (70-99)
--- NOTE | 2024-05-14 08:53 | W.PN.CD ---
Today's Communication / Plan
-
-Continue supportive care and management as directed by CT Surgery.
Impression / Plan
-
78-year-old male with CAD and aortic stenosis status-post CABG x 4/bioprosthetic AVR on 05/13/2024.
CABG x 4/bioprosthetic AVR on 05/13/2024:
-Clinically stable; extubated post OR.
-On low-dose Levophed.
-Continue supportive care and management as directed by CT Surgery.
-Resume beta-santiago when able.
PAF:
-Resume beta-santiago when able.
-Not on anticoagulation as an outpatient.
Hyperlipidemia:
-Continue statin.
ILD:
-Pulmonary following.
Physical Exam
Vital Signs/Labs
Vital Signs
Temp Pulse Resp BP Pulse Ox
98 F 86 22 144/73 95
05/14/24 08:00 05/14/24 08:15 05/14/24 08:15 05/14/24 08:00 05/14/24 08:15
05/13/24 05/14/24 05/15/24
06:59 06:59 06:59
Actual Weight 94.8 kg 103.6 kg
05/14/24 03:02
05/14/24 03:02
PT 16.3 Sec (11.4-14.6) H 05/14/24 03:02
INR 1.33 05/14/24 03:02
APTT 34.9 Sec (23.4-35.0) 05/13/24 17:57
Magnesium 2.6 mg/dl (1.6-2.3) H 05/14/24 03:02
Physical Exam
Constitutional: No acute distress and Comfortable
EENT: Anicteric
Cardiovascular: Rhythm & rate is regular, Pedal edema is absent, Systolic murmur absent and S1S2 is normal
Respiratory: Respiratory effort normal and Lungs clear to auscul.
GI: Soft
Neuro/Psych: AO x 3
Other: Skin (Warm, dry, intact)
Data Reviewed
-
Date of Service: May 14, 2024
EKG: Tracing Personally Visualized and interpreted (Sinus rhythm)
Critical Care Time (in minutes): 33
--- NOTE | 2024-05-14 09:03 | PTCARENOTE ---
Received patient from evening or night nurse supervisor RN. Patient awake and alert, responding appropriately. NSR on monitor, rates in the 80-90's. The patient's left dorsalis pedis pulse heard on Doppler, RDP normal to palpation. +1 edema to LLE, graft sites CDI, a
small amount of serosanguineous drainage on the deepa wrap. Patient on 4LNC, O2 sat 93%. Abdomen SNT, +BS, patient reports his last BM yesterday prior to admission. Norman catheter in place, draining clear yellow urine. Patient's midsternal chest
incision covered with Aquacel, old scant drainage. CT x4 with a small amount of serosanguineous drainage. L groin intact. Patient with R IJ cordis and swan mile catheter intact. Patient on Levo, dobutamine, and insulin gtt per protocol. See worklist
for vital sign, assessment, and titration data. Assessment of needs ongoing.
[2024-05-14] MEDS: ZOFRAN 4 MG IV (09:38)
[2024-05-14] MEDS: DOBUTREX 500 MG 250 IV (09:40)
[2024-05-14 10:08] LABS: Glucose - Point of Care 108 mg/dl (70-99)
[2024-05-14] MEDS: NOVOLIN R INSULIN INFUSION 100 IV (11:03)
[2024-05-14 12:15] LABS: Glucose - Point of Care 92 mg/dl (70-99)
--- NOTE | 2024-05-14 12:34 | PTCARENOTE ---
Addendum entered by Lila Mejia RN 05/14/24 14:26:
Addendum to correct 3 mL Levo to 3 mcg/hr
Original Note:
Patient nauseous, small amount of emesis following breakfast, given Zofran. Levo weaned down to 3 mL/hr, see worklist. VSS, patient maintained on 4LNC, no complaints of pain, family at bedside in the morning, updates given and questions encouraged.
Insulin gtt adjusted per protocol, BGs stable at this time. Patient updated on plan of care, made comfortable and ordering lunch.
[2024-05-14 12:35] LABS: Mixed Venous O2 Saturation 53.3 %
[2024-05-14 13:32] LABS: Glucose - Point of Care 117 mg/dl (70-99)
--- NOTE | 2024-05-14 13:36 | W.PN.INTV ---
Today's Communication / Plan
Recommendations
Continue postoperative care
Increase activity as able
Incentive spirometry
Daily chest x-ray
Follow H&H-transfuse as necessary.
Follow renal function, continue with hemodynamic support-on Levophed and dobutamine.
Follow chest tube output
Analgesia
Continue cardiac management
Assessment
-
Status post CABG x 4/AVR/extensive lysis of single pharyngeal pericardial adhesions 05/13/[address] Kingston
Postoperative mechanical ventilation
Postoperative anemia
Conditions present prior admission:
Multivessel coronary artery disease
Dermatomyositis-on low-dose CellCept
Mild interstitial lung disease
Atrial fibrillation-paroxysmal
Raynaud's syndrome
History of pericarditis
Prior MRSA infection
Right hip arthritis
Hyperlipidemia
BPH
Osteoarthritis of acromioclavicular joint
NPH
History of left lacunar CVA
Hypothyroidism
Severe aortic stenosis
Aneurysm of ascending aortic
History of right inguinal hernia repair
Right total hip arthroplasty
BEZEL CUTTER shunt 09/08/2020
Assessment and plan:
Postoperative day 1 doing well.
Extubated
Encourage incentive spirometry
Increase activity per protocol
Analgesia with as needed narcotics-watch respiratory status close
Wean down FiO2.
Anemia noted-no evidence of acute bleeding
Follow H&H serially-currently receiving 2 unit of packed red blood cells.
Status post platelet transfusion.
Hemoglobin improved.
Hemodynamics -remains on low-dose Levophed and dobutamine. Hopefully can be weaned off.
Follow cardiac output and cardiac index via PA catheter.
Arterial line in place.
Follow BMP
Creatinine slightly increased, urinary output dropping. Norman in place for
Will continue with hemodynamic support,
Chest tube with no excessive drainage-no air leak.
Chest x-ray reviewed 05/14/2024: Reviewed showed postoperative changes. Mild left lower lobe atelectasis
Advance diet
Head of the bed elevation
Mild Interstitial lung disease: Appears stable baseline.
Patient is on CellCept for his diagnosis of Dermatomyositis-follows up at [facility].
Locally with Dr. Bishop.
Glycemic control per protocol
DVT prophylaxis when safe from the surgical perspective.
Critical care statement: A total of 31 minutes of critical care time was provided for this patient today. This includes management of unstable vital signs, evaluation of the patient at bedside, reviewing the patient's pertinent medical records
including ventilator settings, arterial blood gases, radiographs, microbiology, laboratory evaluations and discussion with primary team, critical care nursing, and respiratory therapy.
Subjective Dataa
Subjective Data
Date of Service:
Date of Service: May 14, 2024
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
Subjective:
No major overnight events
Extubated uneventfully
Pain is controlled
Denies shortness of breath at rest
Denies any headache or blurry vision
Review of Systems
Cardiopulmonary: Dyspnea (None at rest)
GI: Abdominal Pain (n) and Nausea (n)
Objective Data
Data Reviewed
Vital Signs / I&O / Oxygen:
Vital Signs
Temp Pulse Resp BP Pulse Ox
98.4 F 82 24 130/58 94
05/14/24 12:00 05/14/24 12:22 05/14/24 12:22 05/14/24 12:22 05/14/24 12:22
Intake and Output
05/13/24 05/14/24 05/15/24
06:59 06:59 06:59
Intake Total 2047.7 / 2212.1 810.1 / 810.1
Output Total 1020 / 1045 210 / 210
Balance 1027.7 / 1167.1 600.1 / 600.1
SaO2 [SIMV] 98
SaO2 94
Nasal Cannula flow liters per 4
minute
Physical Exam
General: Respiratory Distress (n) and Comfortable
HEENT: Normocephalic
Cardiovascular: S1-S2
Respiratory: Clear, Non-Labored Respirations and Chest Tube (No excessive drainage/no air leak)
GI: Soft and Non Distended
Neurology: Awake and Alert
Skin: Warm and Other ( incision is dressed and intact)
Labs/Micro/Reports
Lab Data
05/14/24 03:02
05/14/24 03:02
Laboratory Results
05/13/24 05/13/24 05/14/24
17:57 22:06 03:02
PT 19.3 H 16.3 H
INR 1.64 1.33
APTT 34.9
pH 7.33 L 7.41
pCO2 43 35
pO2 128 H 118 H
HCO3 22.7 22.2
O2 Delivery Level
05/14/24
07:40
PT
INR
APTT
pH 7.40
pCO2 37
pO2 69 L
HCO3 22.9
O2 Delivery Level Not Reportable
--- NOTE | 2024-05-14 16:00 | PTCARENOTE ---
Levophed weaned off. Patient's MAP high 60's-70's. Patient turned, back rub and lotion applied, fresh misa and draw sheet. No dumping from chest tubes noted. Patient boosted in bed and made comfortable. 1600 medications administered, see richard HICKEY
complaints of pain, encouraged the patient to order preferences for dinner. at bedside. Assessment of needs ongoing. VSS.
[2024-05-14 16:10] LABS: Glucose - Point of Care 121 mg/dl (70-99)
[2024-05-14] MEDS: NSS IV (16:38)
[2024-05-14 18:06] LABS: Glucose - Point of Care 97 mg/dl (70-99)
[2024-05-14] MEDS: LIPITOR 40 MG PO (18:08)
--- NOTE | 2024-05-14 19:30 | PTCARENOTE ---
assumed care of patient @ 1900. Received pt laying in bed, AOX3. No c/o pain or nausea. Afebrile. NSR on tele, HR 90s. BP elevated, Dobut turned down to 1 per pa. Index >3. PAP 30s/10s, CVP ~ 12. doppler pedals, V wire set to box, turned off. Lungs
clear, diminished on 4L NC satting mid 90s. taking shallow breaths. IS around 750. 4 chest tubes to wall suction, no air leak, tidaling or crepitus noted. Tolerating diet, BS hypoactive. garcia present draining clear yellow urine. All surgical sites
CDI. R IJ cordis with swan at 50, L radial a line, R AC PIV. all central lines zeroed, flushed. Dobut at 1, insulin per protocol . call kelly within reach. pt resting comfortably
[2024-05-14 20:14] LABS: Glucose - Point of Care 191 mg/dl (70-99)
--- NOTE | 2024-05-14 20:59 | PTCARENOTE ---
PT hypertensive 160s 170s, Nitro started at 5
[2024-05-14 21:08] LABS: Glucose - Point of Care 200 mg/dl (70-99)
[2024-05-14 23:10] LABS: Glucose - Point of Care 100 mg/dl (70-99)
[2024-05-15] VITALS (36 sets, daily range): BP systolic 60–125; BP diastolic 34–93; PULSE 84; O2SAT 94–99; BMI 31.2
--- NOTE | 2024-05-15 | PTCARENOTE ---
Index >2, dobut turned off per CTPA
[2024-05-15 01:05] LABS: Glucose - Point of Care 99 mg/dl (70-99)
[2024-05-15 03:11] LABS: Glucose - Point of Care 109 mg/dl (70-99)
[2024-05-15 03:18] LABS: Mixed Venous O2 Saturation 73.8 %
[2024-05-15 03:43] LABS: Blood Urea Nitrogen 42 mg/dl (9-20); Calcium 8.8 mg/dl (8.4-10.2); Carbon Dioxide 26 mmol/L (22-30); Chloride 106 mmol/L (98-107); Estimated Creatinine Clearance 51 ml/min; Glucose 103 mg/dl (70-99); Hemoglobin 7.5 g/dL (13.0-18.0); Magnesium 2.4 mg/dl (1.6-2.3); Mean Corp Hgb Conc. 35.7 g/dL (33.0-37.0); Mean Corpuscular Hgb 29.6 pg (27.0-31.0); Potassium 4.3 mmol/L (3.5-5.1); Red Blood Cell Count 2.53 10^6/uL (4.70-6.10); Red Cell Dist. Width 15.1 % (11.5-14.5); Sodium 138 mmol/L (135-145); White Blood Cell Count 8.6 10^3/uL (4.8-10.8); eGFR 47.65
[2024-05-15 03:45] LABS: Mean Platelet Volume 10.6 fL (7.4-10.4); Platelet Count 87 10^3/uL (130-400)
[2024-05-15 04:48] LABS: Glucose - Point of Care 95 mg/dl (70-99)
--- NOTE | 2024-05-15 05:02 | W.PN.CT ---
Addendum entered and electronically signed by Misael Kingston MD 05/15/24 16:01:
I saw and examined the patient.
The PA's note was reviewed and I agree with the note.
Comment:
Patient is doing very well today. Dobutamine has been weaned to off.
DC Billings-Vangie catheter
DC chest tubes
Maintain Norman
Transfuse
Diuresis
Original Note:
Today's Communication / Plan
-
-pod #2
-no issues overnight, pleasant, A&O x4, looking forward to getting out of bed
-CI 2.31, CO 4.97, SVR 869. Drips: Dobut off at midnight, Nitro 20, Insulin 3
-CT output: 2 meds 50/85, 2 pleur 50/95 in 12/24 hrs
-h/h 7.5/21.0 today- s/p 3 pRBCs postop
-follow platelts- 87K today (131K on 05/14)
-Cr trending up - 1.5 today (1.4 on 05/14, 1.0 on 05/13, and 1.2 preop) - follow
-follow wts.
-consider keeping Norman another 24 hrs
-current meds (ASA, Plavix, Lipitor, Protonix). BB and Amio held while on Dobutamine. Mg held d/t HELENA
-encourage IS, OOB
Assessment / Plan
-
Assessment:
-S/p Median sternotomy/CABG x 4 (NANCY to LAD, GSV to D, GSV to OM, GSV to RPDA)/Endoscopic harvest/prep of LLE GSV/AVR (#25 Inspiris Resilia)/Extensive lysis of circumferential pericardial adhesions (off/on CPB), by Dr. Kingston, 05/13/24, pod#2
-Severe 3v CAD/70% distal LM
-Apdnqnii-xk-emnqfe aortic stenosis (P/M: 49/29 on ECHO, mean 36mmHg at cath)
-Nbpc-jr-iewucfkb MR w/ dense MAC
-LVEF 60-65% per intraop MARKOS
-PAF
-HTN
-HLD
-Class 1 obesity (BMI 30)
-Prediabetes (hgb A1C 6.4)
-Hypothyroidism
-BPH
-Hx Pericarditis
-Hx MRSA
-Raynaud's syndrome
-Osteoarthritis of Left acromioclavicular joint
-Right hip arthritis
-Spinal stenosis
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
-Mild interstitial lung disease
-Hx of left lacunar CVA
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
-S/p right inguinal hernia repair
-S/p Right total hip arthroplasty
-Acute postop blood loss/Anemia (received 3u PRBC's, 1 {5pk} plts )
-Acute postop atelectasis
-Acute postop hypovolemia with subsequent hypervolemia
-Acute postop HELENA
-Acute postop vasovagal episode, with brief confusion
Discussed patient care with: Nursing and Care Team
Subjective
Procedure
S/p Median sternotomy/CABG x 4 (NANCY to LAD, GSV to D, GSV to OM, GSV to RPDA)/Endoscopic harvest/prep of LLE GSV/AVR (#25 Inspiris Resilia)/Extensive lysis of circumferential pericardial adhesions (off/on CPB), by Dr. Kingston, 05/13/24, pod#1
-
Date of Service: May 15, 2024
Objective Data
-
Lab Results
05/15/24 03:05
05/15/24 03:05
PT 16.3 Sec (11.4-14.6) H 05/14/24 03:02
INR 1.33 05/14/24 03:02
APTT 34.9 Sec (23.4-35.0) 05/13/24 17:57
Vital Signs
Vital Signs
Temp Pulse Resp BP Pulse Ox
98.5 F 90 20 111/54 93
05/15/24 03:00 05/15/24 03:15 05/15/24 03:15 05/15/24 03:00 05/15/24 03:15
CT Intake/Output/Weight
05/14/24 05/14/24 05/15/24
06:59 18:59 06:59
Intake Total 1718.4 / 2212.1 1299.8 / 1937.7 637.9 / 1937.7
Output Total 795 / 1045 375 / 795 420 / 795
Balance 923.4 / 1167.1 924.8 / 1142.7 217.9 / 1142.7
SaO2: 93
Physical Exam
-
General: Awake and AOx3
Cardiovascular: Regular rate & rhythm, No Murmurs and No Rub
Respiratory: Decreased Breath Sounds
Sternum: Stable
Incision: Clean, Dry and Intact
Extremities: Other (trace edema b/l, DPs by Doppler b/l)
Abdomen: soft, nontender, nondistended, + bowel sounds
Data Reviewed
-
Lab Results: Results Reviewed
Medications: Active Meds Reviewed
Chest X-Ray: Report Reviewed and Image Reviewed
ECG: Report Reviewed and Image Reviewed
[2024-05-15] MEDS: TYLENOL 1000 MG PO ×3 (07:09→22:07)
[2024-05-15] MEDS: SYNTHROID 12.5 MCG PO (07:10)
[2024-05-15 07:14] LABS: Glucose - Point of Care 116 mg/dl (70-99)
--- NOTE | 2024-05-15 07:20 | PTCARENOTE ---
Assumed care of patient from shift commander RN. AAO x 3. Sitting up in bed. C/o minor pain. ST/SR on monitor. Rt IJ cordis with swan at 50 cm. Lt radial A line transducing. Lines leveled recalibrated and flushed. Epicardial wire connected to box
but off on handoff. Chest tubes x 4 to - 20 cm suction. No air leaks or crepitus noted. 4 L NC. Pulse ox 95%. IS to 750. Pt somewhat Dyspneic with extended speaking. Abdomen round, soft, and non tender. Bowel sounds through out. Passing
flatus. Denies nausea. Surgical sites well approximated with surgical adhesive. Sternal Aquacel c ,d,i. Trace anasarca appreciated. DP pulses weakly palpable. Drips on handoff as follow: Nitro and insulin. See flow sheet for
totals/titrations. Plan for day discussed.
[2024-05-15 08:01] LABS: Hematocrit 20.4 % (39.0-52.0); Hemoglobin 7.2 g/dL (13.0-18.0); Mean Corp Hgb Conc. 35.3 g/dL (33.0-37.0); Mean Corpuscular Hgb 29.5 pg (27.0-31.0); Mean Corpuscular Volume 83.6 fL (80.0-94.0); Platelet Count 89 10^3/uL (130-400); Red Blood Cell Count 2.44 10^6/uL (4.70-6.10); Red Cell Dist. Width 14.9 % (11.5-14.5); White Blood Cell Count 8.1 10^3/uL (4.8-10.8)
--- NOTE | 2024-05-15 08:24 | W.PN.CD ---
Addendum entered and electronically signed by Katerina Turpin MD 05/15/24 09:44:
Error in respiratory exam below, increased respiratory effort with discussion, normal at rest. Decreased at the bases with Rales mid arnett bilaterally
Original Note:
Today's Communication / Plan
-
transfuse
diuresis
mobilization
Impression / Plan
-
78-year-old male with CAD and aortic stenosis status-post CABG x 4/bioprosthetic AVR on 05/13/2024.
CABG x 4/bioprosthetic AVR on 05/13/2024:
-Clinically stable; extubated post OR.
-On low-dose Levophed.
-Continue supportive care and management as directed by CT Surgery.
-Resume beta-santiago when able.
-Wt up to 103.6kg getting diuresis
post op anemia:getting transfused today
Thrombocytopenia:no active bleeding
-HELENA; likely mutlifactorial, hypotension being the main etiology suspected
PAF:
-Resume beta-santiago when able.
-Not on anticoagulation as per patient preference.
Hyperlipidemia:
-Continue statin.
ILD:
-Pulmonary following.
Subjective:
he is feeling ok, pain controlled mild sob.
Physical Exam
Vital Signs/Labs
Vital Signs
Temp Pulse Resp BP Pulse Ox
98.8 F 97 27 125/50 91
05/15/24 07:00 05/15/24 07:15 05/15/24 07:15 05/15/24 07:00 05/15/24 07:15
05/14/24 05/15/24 05/16/24
06:59 06:59 06:59
Actual Weight 103.6 kg
05/15/24 07:35
05/15/24 03:05
PT 16.3 Sec (11.4-14.6) H 05/14/24 03:02
INR 1.33 05/14/24 03:02
APTT 34.9 Sec (23.4-35.0) 05/13/24 17:57
Magnesium 2.4 mg/dl (1.6-2.3) H 05/15/24 03:05
Physical Exam
Constitutional: No acute distress
Cardiovascular: Rhythm & rate is regular, Pedal edema is absent, JVD pressure is normal, Systolic murmur absent and Diastolic murmur absent
Respiratory: Respiratory effort normal, Lungs clear to auscul., Wheeze Absent, Crackles Absent and Rhonchi Absent
Neuro/Psych: AO x 3
Data Reviewed
-
Date of Service: May 15, 2024
Medical Decision Making: Review of Case with other Provider (CTNP Yael will transfuse and diurese)
EKG: Other (tele sinus)
[2024-05-15] MEDS: NEURONTIN 100 MG PO ×3 (08:25→22:07)
[2024-05-15] MEDS: PROTONIX 40 MG PO (08:25)
[2024-05-15] MEDS: LOPRESSOR 12.5 MG PO ×2 (08:25→22:06)
[2024-05-15] MEDS: PLAVIX 75 MG PO (08:25)
[2024-05-15] MEDS: LIDOCAINE 4% PATCH 1 PATCH TOPICAL (08:25)
[2024-05-15] MEDS: PACERONE 200 MG PO ×3 (08:25→22:07)
[2024-05-15] MEDS: VITAMIN D3 (cholecalciferol) 125 MCG PO (08:25)
[2024-05-15] MEDS: SENOKOT-S 1 TABLET PO ×2 (08:25→20:02)
[2024-05-15] MEDS: BACTROBAN 2% OINTMENT 1 APPLIC NASAL ×2 (08:26→20:02)
[2024-05-15] MEDS: LOW STRENGTH ASPIRIN 81 MG PO (08:26)
[2024-05-15] MEDS: LASIX 60 MG IV (08:32)
--- NOTE | 2024-05-15 09:00 | PTCARENOTE ---
Rt IJ swan removed per Order. IJ cordis redressed at this time. LT radial A line removed. Manual pressure applied x 10 minutes d/t oozing. Hemostasis achieved. Assist x 2 to stand at side of bed. No dumping out of chest tubes observed.
Minimal dizziness per patient. Assisted back to bed. Card sent for 1 unit PRBC's.
[2024-05-15 09:04] LABS: Glucose - Point of Care 91 mg/dl (70-99)
--- NOTE | 2024-05-15 10:36 | PTCARENOTE ---
Chest tubes x 4 removed at this time. Epicardial wire removed per IMAGING ACCOUNT MANAGER order. Pt tolerated w/o issue. Awaiting cardiac rehab to transfer to chair.
--- NOTE | 2024-05-15 11:47 | CM ---
CM following for DC planning needs.
Met w/ patient, spouse, dtr. at bedside. Pt. reports that he is feeling well POD#2.
Anticipated DC plan is for home w/ CT Transitional Care RN.
CM will cont. to follow.
--- NOTE | 2024-05-15 12:00 | PTCARENOTE ---
VSS. Denies complaint. Did well in chair. Assessment otherwise unchanged from prior.
[2024-05-15] MEDS: NOVOLOG FLEXPEN-MODERATE RESISTANCE SC (14:10)
[2024-05-15] MEDS: LASIX 40 MG IV (14:13)
--- NOTE | 2024-05-15 14:19 | W.PN.INTV ---
Today's Communication / Plan
Recommendations
Continue postoperative care
Diuresis
Transfusion today
Follow H&H
Increase activity when able
Continue CellCept for underlying mild ILD
No additional recommendation, sign off
Assessment
-
Status post CABG x 4/AVR/extensive lysis of single pharyngeal pericardial adhesions 05/13/[address] Kingston
Postoperative mechanical ventilation
Postoperative anemia
Conditions present prior admission:
Multivessel coronary artery disease
Dermatomyositis-on low-dose CellCept
Mild interstitial lung disease
Atrial fibrillation-paroxysmal
Raynaud's syndrome
History of pericarditis
Prior MRSA infection
Right hip arthritis
Hyperlipidemia
BPH
Osteoarthritis of acromioclavicular joint
NPH
History of left lacunar CVA
Hypothyroidism
Severe aortic stenosis
Aneurysm of ascending aortic
History of right inguinal hernia repair
Right total hip arthroplasty
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
Assessment and plan:
Postoperative day 2 improve hemodynamics.
On low rate supplemental oxygen, wean off as able
Encourage incentive spirometry
Increase activity per protocol
Analgesia with as needed narcotics-watch respiratory status close
Anemia noted-no evidence of acute bleeding
Will get additional unit of packed red blood cells today 05/15/2024 for hemoglobin of 7.2
Hemodynamics -Levophed and dobutamine discontinued
Follow BMP
Creatinine slightly increased.
Weight is significantly up, getting diuresis today.
Chest tube with no excessive drainage-no air leak.
Chest x-ray reviewed 05/15/2024: Moderate pulmonary edema. Small left pleural effusion.
Chest x-ray reviewed 05/14/2024: Reviewed showed postoperative changes. Mild left lower lobe atelectasis
Advance diet
Head of the bed elevation
Mild Interstitial lung disease: Appears stable baseline.
Patient is on CellCept for his diagnosis of Dermatomyositis-follows up at [facility].
Locally with Dr. Bishop.
Glycemic control per protocol
DVT prophylaxis when safe from the surgical perspective.
Patient has been transition to telemetry. Critical care team will sign off.
Please call with questions
Subjective Dataa
Subjective Data
Date of Service:
Date of Service: May 15, 2024
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
Subjective:
No new complaints overnight
Inotropes have been discontinued
No active bleeding noted
Review of Systems
Cardiopulmonary: Dyspnea (none at rest)
GI: Abdominal Pain (n)
Objective Data
Data Reviewed
Vital Signs / I&O / Oxygen:
Vital Signs
Temp Pulse Resp BP Pulse Ox
98.8 F 78 20 95/82 91
05/15/24 11:00 05/15/24 12:30 05/15/24 11:00 05/15/24 11:40 05/15/24 12:30
Intake and Output
05/14/24 05/15/24 05/16/24
06:59 06:59 06:59
Intake Total 2047.7 / 2212.1 1958.8 / 2128.8 720.7 / 720.7
Output Total 1020 / 1045 885 / 1065 1050 / 1050
Balance 1027.7 / 1167.1 1073.8 / 1063.8 -329.3 / -329.3
SaO2 [SIMV] 98
SaO2 91
Nasal Cannula flow liters per 2
minute
Physical Exam
General: Respiratory Distress (n) and Comfortable
HEENT: Normocephalic
Cardiovascular: S1-S2
Respiratory: Clear, Non-Labored Respirations and Chest Tube (No excessive drainage/no air leak)
GI: Soft and Non Distended
Neurology: Awake, Alert, Oriented and No Motor Deficits
Skin: Warm and Other ( incision is dressed and intact)
Labs/Micro/Reports
Lab Data
05/15/24 07:35
05/15/24 03:05
[2024-05-15] MEDS: NSS 500 IV (16:11)
--- NOTE | 2024-05-15 16:51 | PTCARENOTE ---
Resting in bed. Denies complaint. BP on lower side, denies s/s. Diuresing well with afternoon lasix. Assessment otherwise unchanged from prior.
[2024-05-15] MEDS: LIPITOR 40 MG PO (17:20)
[2024-05-15 17:26] LABS: Glucose - Point of Care 203 mg/dl (70-99)
[2024-05-15] MEDS: NOVOLOG FLEXPEN-MODERATE RESISTANCE 3 UNITS SC (18:07)
--- NOTE | 2024-05-15 20:00 | PTCARENOTE ---
assumed care of pt from previous RN. pt A&Ox4, resting in chair at time of assessment. SR w/ 1st degree AVB on tele-monitor. temp epicardial v-wires insulated. POX 95-97% on 2 L NC. abd s/n, +BS. garcia catheter draining clear, yellow urine. all
surgical sites stable, CDI. R IJ cordis w/ KVO. PIV intact. see worklist for complete nursing assessment, interventions, VS, and I&Os.
[2024-05-15 20:27] LABS: Glucose - Point of Care 280 mg/dl (70-99)
[2024-05-16] VITALS (10 sets, daily range): BP systolic 82–128; BP diastolic 41–87; PULSE 78; O2SAT 93–94; BMI 30.9
--- NOTE | 2024-05-16 | PTCARENOTE ---
assessment remains unchanged. VSS.
--- NOTE | 2024-05-16 04:30 | PTCARENOTE ---
assessment remains unchanged. VSS. AM labs collected and sent. U/O >0.5ml/kg/hr.
--- NOTE | 2024-05-16 05:08 | W.PN.CT ---
Today's Communication / Plan
-
-pod #3
-no issues overnight, very pleasant, A&O
-no drips
-s/p 1 pRBC on 05/15 for Hg 7.2. Hg today 7.6
-follow platelets-stable 90K today (89K on 05/15, 131K on 05/14)
-Cr improved- 1.1 today (1.5 on 05/15, 1.4 on 05/14, 1.0 on 05/13, and 1.2 preop)
-follow wts.
-diuresed well with 60 mg , then 40 mg Iv Lasix on 05/15- UO 935/3210 in 12/24 hrs
-gave 40 po KCL this am for K 3.9
-hypotension improving, tolerating BB and Amio
-current meds (ASA, Plavix, Lipitor, Lopressor, Amio, Protonix). Mg held d/t HELENA
-encourage IS, OOB
Assessment / Plan
-
Assessment:
-S/p Median sternotomy/CABG x 4 (NANCY to LAD, GSV to D, GSV to OM, GSV to RPDA)/Endoscopic harvest/prep of LLE GSV/AVR (#25 Inspiris Resilia)/Extensive lysis of circumferential pericardial adhesions (off/on CPB), by Dr. Kingston, 05/13/24, pod#3
-Severe 3v CAD/70% distal LM
-Pmzuymmi-cd-pptrjh aortic stenosis (P/M: 49/29 on ECHO, mean 36mmHg at cath)
-Ngov-sa-zfrtcgsv MR w/ dense MAC
-LVEF 60-65% per intraop MARKOS
-PAF
-HTN
-HLD
-Class 1 obesity (BMI 30)
-Prediabetes (hgb A1C 6.4)
-Hypothyroidism
-BPH
-Hx Pericarditis
-Hx MRSA
-Raynaud's syndrome
-Osteoarthritis of Left acromioclavicular joint
-Right hip arthritis
-Spinal stenosis
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
-Mild interstitial lung disease
-Hx of left lacunar CVA
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
-S/p right inguinal hernia repair
-S/p Right total hip arthroplasty
-Acute postop blood loss/Anemia (received 4u PRBC's, 1 {5pk} plts )
-Acute postop atelectasis
-Acute postop hypovolemia with subsequent hypervolemia
-Acute postop HELENA
-Acute postop vasovagal episode, with brief confusion
Discussed patient care with: Nursing and Care Team
Subjective
Procedure
S/p Median sternotomy/CABG x 4 (NANCY to LAD, GSV to D, GSV to OM, GSV to RPDA)/Endoscopic harvest/prep of LLE GSV/AVR (#25 Inspiris Resilia)/Extensive lysis of circumferential pericardial adhesions (off/on CPB), by Dr. Kingston, 05/13/24, pod#1
-
Date of Service: May 16, 2024
Objective Data
-
PT 16.3 Sec (11.4-14.6) H 05/14/24 03:02
INR 1.33 05/14/24 03:02
APTT 34.9 Sec (23.4-35.0) 05/13/24 17:57
Vital Signs
Vital Signs
Temp Pulse Resp BP Pulse Ox
97.9 F 72 14 102/54 98
05/16/24 00:00 05/16/24 02:00 05/16/24 00:00 05/16/24 02:00 05/16/24 04:00
CT Intake/Output/Weight
05/15/24 05/15/24 05/16/24
06:59 18:59 06:59
Intake Total 659.0 / 2128.8 1010.7 / 1130.7 120 / 1130.7
Output Total 510 / 1065 2350 / 3285 935 / 3285
Balance 149.0 / 1063.8 -1339.3 / -2154.3 -815 / -2154.3
SaO2: 98
Physical Exam
-
General: Awake and AOx3
Cardiovascular: Regular rate & rhythm, No Murmurs and No Rub
Respiratory: Decreased Breath Sounds
Sternum: Stable
Incision: Clean, Dry and Intact
Abdomen: soft, nontender, nondistended, + bowel sounds
Extremities: Other (trace edema b/l, DPs by Doppler b/l)
Data Reviewed
-
Lab Results: Results Reviewed
Medications: Active Meds Reviewed
Chest X-Ray: Report Reviewed and Image Reviewed
ECG: Report Reviewed and Image Reviewed
[2024-05-16 05:14] LABS: Blood Urea Nitrogen 42 mg/dl (9-20); Calcium 8.5 mg/dl (8.4-10.2); Carbon Dioxide 31 mmol/L (22-30); Chloride 102 mmol/L (98-107); Estimated Creatinine Clearance 68 ml/min; Glucose 137 mg/dl (70-99); Hematocrit 21.9 % (39.0-52.0); Hemoglobin 7.6 g/dL (13.0-18.0); Magnesium 2.2 mg/dl (1.6-2.3); Mean Corp Hgb Conc. 34.7 g/dL (33.0-37.0); Mean Corpuscular Hgb 29.1 pg (27.0-31.0); Mean Corpuscular Volume 83.9 fL (80.0-94.0); Mean Platelet Volume 10.6 fL (7.4-10.4); Platelet Count 90 10^3/uL (130-400); Potassium 3.9 mmol/L (3.5-5.1); Red Blood Cell Count 2.61 10^6/uL (4.70-6.10); Red Cell Dist. Width 15.4 % (11.5-14.5); Sodium 139 mmol/L (135-145); White Blood Cell Count 7.6 10^3/uL (4.8-10.8); eGFR > 60.00
[2024-05-16] MEDS: TYLENOL 1000 MG PO ×3 (05:57→22:21)
[2024-05-16] MEDS: SYNTHROID 12.5 MCG PO (05:57)
[2024-05-16] MEDS: KCL 40 MEQ PO (05:58)
[2024-05-16] MEDS: NEURONTIN 100 MG PO ×3 (07:47→22:19)
[2024-05-16] MEDS: VITAMIN D3 (cholecalciferol) 125 MCG PO (07:47)
[2024-05-16] MEDS: PLAVIX 75 MG PO (07:47)
[2024-05-16] MEDS: PACERONE 200 MG PO ×3 (07:47→22:19)
[2024-05-16] MEDS: DIAMOX 250 MG PO (07:47)
[2024-05-16] MEDS: LOW STRENGTH ASPIRIN 81 MG PO (07:47)
[2024-05-16] MEDS: PROTONIX 40 MG PO (07:47)
[2024-05-16] MEDS: LOPRESSOR 12.5 MG PO ×2 (07:47→19:42)
[2024-05-16] MEDS: SENOKOT-S 1 TABLET PO ×2 (07:47→19:42)
[2024-05-16] MEDS: NOVOLOG FLEXPEN-MODERATE RESISTANCE SC ×3 (07:48→17:08)
[2024-05-16] MEDS: BACTROBAN 2% OINTMENT 1 APPLIC NASAL ×2 (07:48→19:42)
--- NOTE | 2024-05-16 08:40 | W.PN.CD ---
Today's Communication / Plan
-
Would continue diuresis.
Beta-santiago resumed.
Close eye on hemoglobin.
Increase mobilization
Impression / Plan
-
78-year-old male with CAD and aortic stenosis status-post CABG x 4/bioprosthetic AVR on 05/13/2024.
CABG x 4/bioprosthetic AVR on 05/13/2024:
-doing well
-off gtts and bp improved
-Continue supportive care and management as directed by CT Surgery.
-Resumed beta-santiago
-Wt down nicely with diuresis to 100.6 (pk post op was 103.6 preop 94.8) continue diuresis
post op anemia:stable after transfusion monitor closely as only a 0.5 bump with 1 unirt
Thrombocytopenia:no active bleeding
-HELENA; likely mutlifactorial, hypotension being the main etiology suspected
-improved to 1.1
PAF:
-Resume beta-santiago when able.
-Not on anticoagulation as per patient preference.
Hyperlipidemia:
-Continue statin.
ILD:
-Pulmonary following.
Subjective:
he is feeling better, happy to be out of bed.
Physical Exam
Vital Signs/Labs
Vital Signs
Temp Pulse Resp BP Pulse Ox
97.9 F 74 14 119/58 98
05/16/24 00:00 05/16/24 06:00 05/16/24 00:00 05/16/24 04:29 05/16/24 04:58
05/15/24 05/16/24 05/17/24
06:59 06:59 06:59
Actual Weight 100.6 kg
05/16/24 04:27
05/16/24 04:27
PT 16.3 Sec (11.4-14.6) H 05/14/24 03:02
INR 1.33 05/14/24 03:02
APTT 34.9 Sec (23.4-35.0) 05/13/24 17:57
Magnesium 2.2 mg/dl (1.6-2.3) 05/16/24 04:27
Physical Exam
Constitutional: No acute distress
Cardiovascular: Rhythm & rate is regular and Pedal edema present (Trace bilaterally)
Respiratory: Respiratory effort normal, Crackles Present (Scant rales in the right base, decreased in the left base) and Other (Decreased on the left face)
Neuro/Psych: AO x 3
Data Reviewed
-
Date of Service: May 16, 2024
EKG: Other (Sinus)
[2024-05-16] MEDS: LIDOCAINE 4% PATCH TOPICAL (09:04)
--- NOTE | 2024-05-16 10:11 | PTCARENOTE ---
Assumed care of patient . Sitting up in the chair. Denies complaint. SR on monitor. epicardial wire insulated. Room air 92%, denies cough or sputum. Surgical sites c,d,i. Norman cath draining yellow urine. No edema observed. Pulses palpable.
Plan for day discussed.
--- NOTE | 2024-05-16 12:54 | PTCARENOTE ---
Norman cath removed, pt able to void 100 ml yellow urine quickly. Pt with chronic urinary leakage. Resting in bed. VSS. Assessment unchanged from prior.
--- NOTE | 2024-05-16 16:34 | PN.CDI ---
CDI
- -
CDI:
Physician Documentation Request
Admit Date: 05/13/24 04:52
Dear Doctor Thee/ JAMIE,
Please review the following and provide your response in the progress notes.
Clinical Indicators:
The diagnosis of Moderate pulmonary edema was included in the signed CXR 05/15/24.
Additional clinical indicators in the chart include:
CXR 05/16, ' There is mild hazy interstitial air space disease in the left upper lung which may be mild residual pulmonary edema which is significantly improved when compared with the prior study....'
Progress note 05/16,' diuresed well with 60 mg , then 40 mg Iv Lasix on 05/15...-LVEF 60-65% per intraop MARKOS....'
Please provide a diagnosis for the above CXR findings/Treatment :
Acute Diastolic CHF
Acute noncardiogenic pulmonary edema
Other ( please specify)
Use of terms such as suspected, likely, concern for, or probable are acceptable for a diagnosis that is being evaluated, monitored or treated as if it exists and can be coded in the inpatient setting, when documented at the time of discharge.
Thank you,
Cyn Dale RN
CDI Specialist
[place] [facility]
Please use your independent medical judgment in providing your response.
--- NOTE | 2024-05-16 16:52 | PTCARENOTE ---
Rec'd report from previous RN. Full assessment done on patient. Agree with previous assessment. Pt denies pain, denies sob. Pt assisted to bathroom with rolling walker, tolerated well. See worklist for VS/I and O and assessments.
[2024-05-16 17:04] LABS: Glucose - Point of Care 137 mg/dl (70-99)
[2024-05-16] MEDS: NSS IV (17:08)
[2024-05-16] MEDS: LIPITOR 40 MG PO (18:24)
--- NOTE | 2024-05-16 19:30 | PTCARENOTE ---
Received pt from [facility], walking rounds completed. Pt assessed in chair. Pt is AAOx3, no neuro deficits noted. NSR, V-wires insulated, Bi-lateral UE pulses palpable, Bi-lateral LE pulses heard on Doppler, Bi-lateral UE trace edema, LLE +2 edema,
RLE +1 edema. Lungs clear, diminished in bases, POX 97% RA, I/S encouraged. Pt voided 200 clear yellow urine, Normal BS. Sternal incision approximated, no redness or edema, L leg incisions approx., R AC 18g flushes, no redness or edema. Discussed
plan of care with pt. Pt agrees with plan.
--- NOTE | 2024-05-16 20:56 | PTCARENOTE ---
Received pt from [facility], walking rounds completed. Pt assessed in chair. Pt is AAOx3, no neuro deficits noted. NSR, V-wires insulated, Bi-lateral UE pulses palpable, Bi-lateral LE pulses auscultated with Doppler, Bi-lateral UE trace edema, LLE +2
edema, RLE +1 edema. Lungs clear, diminished in bases, POX 97% RA, I/S encouraged. Pt voided 200 clear yellow urine, Normal BS. Sternal incision approximated, L leg incisions approx., R AC 18g flushed, no redness or edema. Discussed plan of care
with pt. Pt agrees with plan.
--- NOTE | 2024-05-16 22:51 | PTCARENOTE ---
VSS, Pt in NSR on monitor. Denies pain. pt resting comfortably in bed.
--- NOTE | 2024-05-16 22:54 | PTCARENOTE ---
VSS, Pt in NSR on monitor. Denies pain. Nursing assessment unchanged from prior. Pt resting comfortably in bed.
[2024-05-17] VITALS (8 sets, daily range): BP systolic 101–122; BP diastolic 38–77; BMI 30.7
[2024-05-17 03:35] LABS: Hemoglobin 7.6 g/dL (13.0-18.0); Mean Corp Hgb Conc. 34.5 g/dL (33.0-37.0); Mean Platelet Volume 10.8 fL (7.4-10.4); Platelet Count 98 10^3/uL (130-400); Red Blood Cell Count 2.53 10^6/uL (4.70-6.10); Red Cell Dist. Width 15.1 % (11.5-14.5)
[2024-05-17 03:48] LABS: Blood Urea Nitrogen 38 mg/dl (9-20); Calcium 8.8 mg/dl (8.4-10.2); Carbon Dioxide 25 mmol/L (22-30); Chloride 105 mmol/L (98-107); Estimated Creatinine Clearance 62 ml/min; Glucose 119 mg/dl (70-99); Magnesium 2.3 mg/dl (1.6-2.3); Sodium 137 mmol/L (135-145); eGFR > 60.00
--- NOTE | 2024-05-17 03:50 | PTCARENOTE ---
VSS, NSR on monitor, voiding clear, yellow urine, pt denies pain, SOB, or nausea. Nursing assessment unchanged from prior. Pt resting comfortably in bed.
[2024-05-17] MEDS: TYLENOL 1000 MG PO ×3 (05:17→22:10)
[2024-05-17] MEDS: SYNTHROID 12.5 MCG PO (05:17)
--- NOTE | 2024-05-17 05:56 | W.PN.CT ---
Documented by User: Dawna Stewart PA-C 05/17/24 07:06
Today's Communication / Plan
-
-pod #4
-no issues overnight
-no drips
-platelets stable- 98K
-Hg low but stable 7.6
-Cr improved - 1.2 (preop baseline 1.1-1.2)
-current meds (ASA, Plavix, Lipitor, Lopressor, Amio, Protonix).
-encourage IS, OOB
Assessment / Plan
-
Assessment:
-S/p Median sternotomy/CABG x 4 (NANCY to LAD, GSV to D, GSV to OM, GSV to RPDA)/Endoscopic harvest/prep of LLE GSV/AVR (#25 Inspiris Resilia)/Extensive lysis of circumferential pericardial adhesions (off/on CPB), by Dr. Kingston, 05/13/24, pod#4
-Severe 3v CAD/70% distal LM
-Bqfkswhh-ks-mvgyin aortic stenosis (P/M: 49/29 on ECHO, mean 36mmHg at cath)
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
-LVEF 60-65% per intraop MARKOS
-PAF
-HTN
-HLD
-Class 1 obesity (BMI 30)
-Prediabetes (hgb A1C 6.4)
-Hypothyroidism
-BPH
-Hx Pericarditis
-Hx MRSA
-Raynaud's syndrome
-Osteoarthritis of Left acromioclavicular joint
-Right hip arthritis
-Spinal stenosis
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
-Mild interstitial lung disease
-Hx of left lacunar CVA
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
-S/p right inguinal hernia repair
-S/p Right total hip arthroplasty
-Acute postop blood loss/Anemia (received 4u PRBC's, 1 {5pk} plts )
-Acute postop atelectasis
-Acute postop hypovolemia with subsequent hypervolemia
-Acute postop HELENA
-Acute postop vasovagal episode, with brief confusion
Discussed patient care with: Nursing and Care Team
Subjective
Procedure
S/p Median sternotomy/CABG x 4 (NANCY to LAD, GSV to D, GSV to OM, GSV to RPDA)/Endoscopic harvest/prep of LLE GSV/AVR (#25 Inspiris Resilia)/Extensive lysis of circumferential pericardial adhesions (off/on CPB), by Dr. Kingston, 05/13/24, pod#1
-
Date of Service: May 17, 2024
Objective Data
-
Lab Results
05/17/24 03:25
05/17/24 03:25
PT 16.3 Sec (11.4-14.6) H 05/14/24 03:02
INR 1.33 05/14/24 03:02
APTT 34.9 Sec (23.4-35.0) 05/13/24 17:57
Vital Signs
Vital Signs
Temp Pulse Resp BP Pulse Ox
98.6 F 71 18 122/54 75
05/17/24 03:41 05/17/24 04:00 05/17/24 03:41 05/17/24 03:40 05/17/24 03:41
CT Intake/Output/Weight
05/16/24 05/16/24 05/17/24
06:59 18:59 06:59
Intake Total 120 / 1130.7 1140 / 1140
Output Total 1055 / 3405 425 / 1075 650 / 1075
Balance -935 / -2274.3 715 / 65 -650 / 65
SaO2: 75
Physical Exam
-
General: Awake and AOx3
Cardiovascular: Regular rate & rhythm, No Murmurs and No Rub
Respiratory: Decreased Breath Sounds
Sternum: Stable
Incision: Clean, Dry and Dressing Intact
Extremities: Edema +1
Abdomen: soft, nondistended, nontender, + bowel sounds
Data Reviewed
-
Lab Results: Results Reviewed
Medications: Active Meds Reviewed
Chest X-Ray: Report Reviewed and Image Reviewed
ECG: Report Reviewed and Image Reviewed

Documented by User: DENNYS Zimmerman 05/17/24 12:27
Assessment / Plan
-
Assessment:
-S/p Median sternotomy/CABG x 4 (NANCY to LAD, GSV to D, GSV to OM, GSV to RPDA)/Endoscopic harvest/prep of LLE GSV/AVR (#25 Inspiris Resilia)/Extensive lysis of circumferential pericardial adhesions (off/on CPB), by Dr. Kingston, 05/13/24, pod#4
-Severe 3v CAD/70% distal LM
-Wmpvjqyr-qd-xtdodj aortic stenosis (P/M: 49/29 on ECHO, mean 36mmHg at cath)
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
-LVEF 60-65% per intraop MARKOS
-PAF
-HTN
-HLD
-Class 1 obesity (BMI 30)
-Prediabetes (hgb A1C 6.4)
-Hypothyroidism
-BPH
-Hx Pericarditis
-Hx MRSA
-Raynaud's syndrome
-Osteoarthritis of Left acromioclavicular joint
-Right hip arthritis
-Spinal stenosis
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
-Mild interstitial lung disease
-Hx of left lacunar CVA
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
-S/p right inguinal hernia repair
-S/p Right total hip arthroplasty
-Acute postop blood loss/Anemia (received 4u PRBC's, 1 {5pk} plts )
-Acute postop atelectasis
-Acute postop hypovolemia with subsequent hypervolemia
-Acute postop HELENA
-Acute postop vasovagal episode, with brief confusion
-Post-op weight gain d/t intra-op volume requirements
--- NOTE | 2024-05-17 07:00 | PTCARENOTE ---
Bedside walking rounds report received. Patient seen on rounds oob in chair on 2l nasal canula. Titrated to room air. Needs assistance to get up from chair/commode: utilizes rolling walker for same with guidance. NSR on monitor. Plan: diurese with
IV lasix and plan for 2 view x ray later this am. See flow record for remaining assessments.
[2024-05-17] MEDS: PROTONIX 40 MG PO (08:43)
[2024-05-17] MEDS: LIDOCAINE 4% PATCH 1 PATCH TOPICAL (08:43)
[2024-05-17] MEDS: LOW STRENGTH ASPIRIN 81 MG PO (08:44)
[2024-05-17] MEDS: LASIX 40 MG IV ×2 (08:44→16:15)
[2024-05-17] MEDS: SENOKOT-S 1 TABLET PO ×2 (08:45→20:03)
[2024-05-17] MEDS: TOPROL XL 25 MG PO (08:45)
[2024-05-17] MEDS: KCL 20 MEQ PO ×2 (08:45→22:09)
[2024-05-17] MEDS: PACERONE 200 MG PO ×2 (08:45→16:15)
[2024-05-17] MEDS: NEURONTIN 100 MG PO ×3 (08:45→22:10)
[2024-05-17] MEDS: VITAMIN D3 (cholecalciferol) 125 MCG PO (08:45)
[2024-05-17] MEDS: PLAVIX 75 MG PO (08:45)
--- NOTE | 2024-05-17 08:46 | W.PN.CD ---
Today's Communication / Plan
-
recommend an deepa wrap to right leg, lasix and ambulation
Impression / Plan
-
78-year-old male with CAD and aortic stenosis status-post CABG x 4/bioprosthetic AVR on 05/13/2024.
CABG x 4/bioprosthetic AVR on 05/13/2024:
-doing well
-off gtts and bp improved
-Continue supportive care and management as directed by CT Surgery.
-Resumed beta-santiago
-right leg if very tense and edematous (sight of harvest), recommend an deepa wrap, lasix and ambulation
post op anemia:stable after transfusion monitor closely as only a 0.5 bump with 1 unit but stable
Thrombocytopenia:no active bleeding
PAF:
-Resume beta-santiago when able.
-Not on anticoagulation as per patient preference.
Hyperlipidemia:
-Continue statin.
ILD:
-Pulmonary following.
Subjective:
he is feeling better just constipated, happy to be out of bed.
Physical Exam
Vital Signs/Labs
Vital Signs
Temp Pulse Resp BP Pulse Ox
97.9 F 77 20 118/76 97
05/17/24 07:47 05/17/24 08:00 05/17/24 07:47 05/17/24 07:47 05/17/24 07:47
05/16/24 05/17/24 05/18/24
06:59 06:59 06:59
Actual Weight 100.6 kg 99.7 kg
05/17/24 03:25
05/17/24 03:25
PT 16.3 Sec (11.4-14.6) H 05/14/24 03:02
INR 1.33 05/14/24 03:02
APTT 34.9 Sec (23.4-35.0) 05/13/24 17:57
Magnesium 2.3 mg/dl (1.6-2.3) 05/17/24 03:25
Physical Exam
Constitutional: No acute distress
Cardiovascular: Rhythm & rate is regular, JVD pressure is normal, Systolic murmur absent, Diastolic murmur absent and Pedal edema present (right leg hard and edematous up to the mid thigh)
Respiratory: Respiratory effort normal, Lungs clear to auscul., Wheeze Absent, Crackles Absent and Rhonchi Absent
GI: Soft
Data Reviewed
-
Date of Service: May 17, 2024
Medical Decision Making: Review of Case with other Provider (discussed with lakshmi Blood and RONN Juárez)
EKG: Other (sinus)
[2024-05-17] MEDS: NOVOLOG FLEXPEN-MODERATE RESISTANCE SC ×3 (08:49→16:56)
[2024-05-17] MEDS: BACTROBAN 2% OINTMENT 1 APPLIC NASAL (08:50)
[2024-05-17 09:00] LABS: Glucose - Point of Care 136 mg/dl (70-99)
--- NOTE | 2024-05-17 11:20 | CM ---
Addendum entered by MAGDY Villarreal 05/17/24 15:23:
Met w/ patient's dtr. and spouse at bedside. They have some concern with patient's progress and return home.
Provided encouragement to them.
We discussed along with patient to try to minimize stairs at home and 'take it easy'.
We discussed participating in Cardiac Rehab on 05/18 and navigating stairs prior to DC home.
We reviewed follow up visit from CT Transitional Care RN.
Plan remains for home w/ CT RN.
CM to cont. to follow.
Original Note:
CM following for DC planning needs.
Met w/ patient at bedside. Patient is POD#4 from AVR, CABG. He reports that he is feeling well and is hopeful for DC over the weekend.
We reviewed post op appointments and visit from CT Transitional Care RN. Pt. has no concerns or needs at this time.
Anticipated DC plan is for home w/ CT Transitional Care RN.
CM to follow.
[2024-05-17] MEDS: MILK OF MAGNESIA 30 ML PO (13:56)
--- NOTE | 2024-05-17 14:02 | PTCARENOTE ---
Received report from previous RN. Pt AAOX3. Pox: 95% RA. NSR on hospital monitor. Patient denies pain/SOB. Pt c/o constipation. Medicated with MOM. See MAR. Call kelly within reach. Plan of care ongoing.
[2024-05-17] MEDS: DULCOLAX 10 MG RECTAL (15:35)
[2024-05-17 16:51] LABS: Glucose - Point of Care 131 mg/dl (70-99)
[2024-05-17] MEDS: NSS IV (17:01)
[2024-05-17] MEDS: LIPITOR 40 MG PO (17:45)
--- NOTE | 2024-05-17 20:00 | PTCARENOTE ---
[facility], [facility] rounds completed. Pt assessment performed in chair. Pt is AAOx3, no neuro deficits noted. NSR on monitor, pulse: 80, pulses palpable throughout, +1 edema LLE, trace edema bi-lat UE and R LE. Lungs clear, diminished
in bases, POX 98% RA, I/S 1200, pt demonstrated use X3. Pt voiding in bathroom and urinal, Normal BS. Sternal incision Aquacel, C/D/I, C/T incisions, PHYLLIS, no redness or edema present, LLE incision approx, surgical glue present. R AC 18 flushes. Pt
resting in chair, call kelly within reach. Discussed plan of care with pt. Pt agrees with plan of care.
[2024-05-17] MEDS: PACERONE 400 MG PO (22:21)
[2024-05-17 22:27] LABS: Glucose - Point of Care 155 mg/dl (70-99)
--- NOTE | 2024-05-17 23:13 | PTCARENOTE ---
VSS, pt in NSR on monitor, pt denies pain, SOB, and nausea. Ambulated to bathroom. Pt resting comfortably in bed. Nursing assessment unchanged from prior.
[2024-05-18] VITALS (9 sets, daily range): BP systolic 101–130; BP diastolic 52–69; PULSE 74; O2SAT 97–100; BMI 29.9
[2024-05-18 04:34] LABS: Hematocrit 22.1 % (39.0-52.0); Hemoglobin 7.5 g/dL (13.0-18.0); Mean Corp Hgb Conc. 33.9 g/dL (33.0-37.0); Mean Corpuscular Hgb 28.7 pg (27.0-31.0); Mean Corpuscular Volume 84.7 fL (80.0-94.0); Mean Platelet Volume 10.3 fL (7.4-10.4); Platelet Count 150 10^3/uL (130-400); Red Blood Cell Count 2.61 10^6/uL (4.70-6.10); Red Cell Dist. Width 15.1 % (11.5-14.5); White Blood Cell Count 9.8 10^3/uL (4.8-10.8)
[2024-05-18 04:51] LABS: Blood Urea Nitrogen 41 mg/dl (9-20); Calcium 8.9 mg/dl (8.4-10.2); Carbon Dioxide 27 mmol/L (22-30); Chloride 103 mmol/L (98-107); Estimated Creatinine Clearance 57 ml/min; Glucose 118 mg/dl (70-99); Magnesium 2.5 mg/dl (1.6-2.3); Potassium 4.2 mmol/L (3.5-5.1); Sodium 139 mmol/L (135-145); eGFR 56.58
--- NOTE | 2024-05-18 05:20 | PTCARENOTE ---
VSS, pt in NSR on monitor. Denies pain, SOB, or nausea. Labs obtained, Nursing assessment unchanged from prior.
[2024-05-18] MEDS: TYLENOL 1000 MG PO ×2 (05:53→22:47)
[2024-05-18] MEDS: SYNTHROID 12.5 MCG PO (05:53)
--- NOTE | 2024-05-18 06:08 | W.PN.CT ---
Today's Communication / Plan
-
Plan:
-No major issues overnight. Hemodynamically and neurologically intact
-Being diuresed with 40mg IV BID lasix, 24hr u/o 2450 mL. Check weight
-Cont. current meds (ASA, Plavix, Lipitor, Lopressor, Amio, Protonix).
-Thrombocytopenia has resolved: 98K -> 150K
-Wean off of O2, currently on 2L NC
-Encourage use of IS
-OOB into chair/Ambulate
-Home likely tomorrow
Assessment / Plan
-
Assessment:
-S/p Median sternotomy/CABG x 4 (NANCY to LAD, GSV to D, GSV to OM, GSV to RPDA)/Endoscopic harvest/prep of LLE GSV/AVR (#25 Inspiris Resilia)/Extensive lysis of circumferential pericardial adhesions (off/on CPB), by Dr. Kingston, 05/13/24, pod#5
-Severe 3v CAD/70% distal LM
-Bfsslwah-pv-xsaohd aortic stenosis (P/M: 49/29 on ECHO, mean 36mmHg at cath)
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
-LVEF 60-65% per intraop MARKOS
-PAF
-HTN
-HLD
-Class 1 obesity (BMI 30)
-Prediabetes (hgb A1C 6.4)
-Hypothyroidism
-BPH
-Hx Pericarditis
-Hx MRSA
-Raynaud's syndrome
-Osteoarthritis of Left acromioclavicular joint
-Right hip arthritis
-Spinal stenosis
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
-Mild interstitial lung disease
-Hx of left lacunar CVA
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
-S/p right inguinal hernia repair
-S/p Right total hip arthroplasty
-Acute postop blood loss/Anemia (received 4u PRBC's, 1 {5pk} plts )
-Acute postop thrombocytopenia (stable, no active bleed)
-Acute postop atelectasis/pleural effusion
-Acute postop hypovolemia with subsequent hypervolemia
-Acute postop HELENA
-Acute postop vasovagal episode, with brief confusion
-Post-op weight gain d/t intra-op volume requirements
Discussed patient care with: Cardiology, Nursing, Respiratory Therapy, Pharmacy and Care Team
Subjective
Procedure
S/p Median sternotomy/CABG x 4 (NANCY to LAD, GSV to D, GSV to OM, GSV to RPDA)/Endoscopic harvest/prep of LLE GSV/AVR (#25 Inspiris Resilia)/Extensive lysis of circumferential pericardial adhesions (off/on CPB), by Dr. Kingston, 05/13/24, pod#1
-
Date of Service: May 18, 2024
Pt c/o mild incisional pain, otherwise feels well
Objective Data
-
Lab Results
05/18/24 04:01
05/18/24 04:01
PT 16.3 Sec (11.4-14.6) H 05/14/24 03:02
INR 1.33 05/14/24 03:02
APTT 34.9 Sec (23.4-35.0) 05/13/24 17:57
Vital Signs
Vital Signs
Temp Pulse Resp BP Pulse Ox
98 F 71 16 122/63 97
05/18/24 04:05 05/18/24 05:00 05/18/24 04:05 05/18/24 03:58 05/18/24 04:05
CT Intake/Output/Weight
05/17/24 05/17/24 05/18/24
06:59 18:59 06:59
Intake Total 940 / 1540 600 / 1540
Output Total 650 / 1075 1850 / 2200 350 / 2200
Balance -650 / 65 -910 / -660 250 / -660
SaO2: 97 (2L)
Physical Exam
-
General: Awake, Oriented and AOx3
Cardiovascular: Regular rate & rhythm, No Murmurs, No Rub and No Gallop
Respiratory: Decreased Breath Sounds (at bases, mild crackles @ left base)
Sternum: Stable
Incision: Clean, Dry, Intact and Dressing Intact
Extremities: Edema +1
Data Reviewed
-
Lab Results: Results Reviewed
Medications: Active Meds Reviewed
Chest X-Ray: Report Reviewed and Image Reviewed
ECG: Report Reviewed and Image Reviewed
[2024-05-18] MEDS: NOVOLOG FLEXPEN-MODERATE RESISTANCE SC ×3 (07:00→17:18)
--- NOTE | 2024-05-18 08:00 | PTCARENOTE ---
Resumed care of patient from previous RN. OOB in chair at time of assessment. AAOx3. NSR on monitor. HR 80s, pulses palpable throughout, +1 edema LLE. Lungs diminished in bases, POX 95% RA. IS 1250.Clear yellow urine into urinal. +BS. All surgical
sites C/D/I. will continue to monitor.
[2024-05-18] MEDS: PROTONIX 40 MG PO (08:39)
[2024-05-18] MEDS: NEURONTIN 100 MG PO ×3 (08:39→22:46)
[2024-05-18] MEDS: PLAVIX 75 MG PO (08:39)
[2024-05-18] MEDS: LOW STRENGTH ASPIRIN 81 MG PO (08:39)
[2024-05-18] MEDS: SENOKOT-S 1 TABLET PO ×2 (08:39→19:54)
[2024-05-18] MEDS: KCL 20 MEQ PO ×2 (08:40→19:54)
[2024-05-18] MEDS: TOPROL XL 25 MG PO (08:40)
[2024-05-18] MEDS: VITAMIN D3 (cholecalciferol) 125 MCG PO (08:40)
[2024-05-18] MEDS: PACERONE 200 MG PO ×3 (08:41→22:46)
[2024-05-18] MEDS: LASIX 40 MG IV ×2 (08:41→16:24)
[2024-05-18] MEDS: LIDOCAINE 4% PATCH TOPICAL (08:45)
[2024-05-18] MEDS: TYLENOL PO (13:15)
[2024-05-18 13:59] LABS: Glucose - Point of Care 158 mg/dl (70-99)
[2024-05-18] MEDS: LIPITOR 40 MG PO (16:24)
[2024-05-18] MEDS: NSS IV (16:26)
[2024-05-18 17:19] LABS: Glucose - Point of Care 97 mg/dl (70-99)
[2024-05-18 20:56] LABS: Glucose - Point of Care 163 mg/dl (70-99)
--- NOTE | 2024-05-19 02:10 | PTCARENOTE ---
Pt. transferred to IVU from CVICU at change of shift. Pt. AAOx3, VSS, NSR on the monitor. Lungs clear but diminished, RA pulse ox 95%, IS up to 1250. Sternal incision Aquacel & previous CT site dressing CDI, left medial upper leg incision PHYLLIS,
wound approximated without drainage. Pedal pulses weak, left leg edema +1, right trace. Pt. has some stress incontinence at baseline but uses urinal without difficulty, ambulates with minimal assist to use bathroom. Oriented to room and plan of
care, understanding verbalized. Pt. hoping for discharge later this morning.
[2024-05-19 03:47] VITALS: BP 100/64
[2024-05-19 03:58] VITALS: BMI 29.9
[2024-05-19 04:34] LABS: Hematocrit 24.1 % (39.0-52.0); Hemoglobin 8.3 g/dL (13.0-18.0); Mean Corp Hgb Conc. 34.4 g/dL (33.0-37.0); Mean Corpuscular Hgb 29.4 pg (27.0-31.0); Mean Corpuscular Volume 85.5 fL (80.0-94.0); Mean Platelet Volume 9.9 fL (7.4-10.4); Platelet Count 192 10^3/uL (130-400); Red Blood Cell Count 2.82 10^6/uL (4.70-6.10); Red Cell Dist. Width 15.1 % (11.5-14.5); White Blood Cell Count 10.9 10^3/uL (4.8-10.8)
[2024-05-19 04:57] LABS: Blood Urea Nitrogen 39 mg/dl (9-20); Calcium 9.1 mg/dl (8.4-10.2); Carbon Dioxide 29 mmol/L (22-30); Chloride 101 mmol/L (98-107); Estimated Creatinine Clearance 51 ml/min; Glucose 119 mg/dl (70-99); Magnesium 2.3 mg/dl (1.6-2.3); Potassium 4.3 mmol/L (3.5-5.1); Sodium 141 mmol/L (135-145); eGFR 56.58
[2024-05-19] MEDS: TYLENOL 1000 MG PO (05:41)
[2024-05-19] MEDS: SYNTHROID 12.5 MCG PO (05:41)
--- NOTE | 2024-05-19 05:41 | W.PN.CT ---
Today's Communication / Plan
-
Plan:
-No major issues overnight. Hemodynamically and neurologically intact
-Cont. diuresis, 40 mg IV this AM, then transition to PO since going home
-H/h stable @ 8.3/24.1, denies lightheadedness/dizziness
-Thrombocytopenia has resolved: 98K -> 150K-> 192K
-Cont. current meds (ASA, Plavix, Lipitor, Lopressor, Amio, Protonix).
-Weaned off of O2, currently 95% on RA
-Encourage use of IS
-OOB into chair/Ambulate
-Home today
Assessment / Plan
-
Assessment:
-S/p Median sternotomy/CABG x 4 (NANCY to LAD, GSV to D, GSV to OM, GSV to RPDA)/Endoscopic harvest/prep of LLE GSV/AVR (#25 Inspiris Resilia)/Extensive lysis of circumferential pericardial adhesions (off/on CPB), by Dr. Kingston, 05/13/24, pod#6
-Severe 3v CAD/70% distal LM
-Lwprnicc-ni-vzjfeu aortic stenosis (P/M: 49/29 on ECHO, mean 36mmHg at cath)
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
-LVEF 60-65% per intraop MARKOS
-PAF
-HTN
-HLD
-Class 1 obesity (BMI 30)
-Prediabetes (hgb A1C 6.4)
-Hypothyroidism
-BPH
-Hx Pericarditis
-Hx MRSA
-Raynaud's syndrome
-Osteoarthritis of Left acromioclavicular joint
-Right hip arthritis
-Spinal stenosis
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
-Mild interstitial lung disease
-Hx of left lacunar CVA
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
-S/p right inguinal hernia repair
-S/p Right total hip arthroplasty
-Acute postop blood loss/Anemia (received 4u PRBC's, 1 {5pk} plts )
-Acute postop thrombocytopenia (stable, no active bleed)
-Acute postop atelectasis/pleural effusion
-Acute postop hypovolemia with subsequent hypervolemia
-Acute postop HELENA
-Acute postop vasovagal episode, with brief confusion
-Post-op weight gain d/t intra-op volume requirements
Discussed patient care with: Cardiology, Nursing, Respiratory Therapy, Pharmacy and Care Team
Subjective
Procedure
S/p Median sternotomy/CABG x 4 (NANCY to LAD, GSV to D, GSV to OM, GSV to RPDA)/Endoscopic harvest/prep of LLE GSV/AVR (#25 Inspiris Resilia)/Extensive lysis of circumferential pericardial adhesions (off/on CPB), by Dr. Kingston, 05/13/24, pod#1
-
Date of Service: May 19, 2024
Pt c/o mild incisional pain, otherwise feels well
Objective Data
-
Lab Results
05/19/24 04:03
05/19/24 04:04
PT 16.3 Sec (11.4-14.6) H 05/14/24 03:02
INR 1.33 05/14/24 03:02
APTT 34.9 Sec (23.4-35.0) 05/13/24 17:57
Vital Signs
Vital Signs
Temp Pulse Resp BP Pulse Ox
99.1 F 74 20 100/64 95
05/19/24 03:47 05/19/24 04:00 05/19/24 03:47 05/19/24 03:47 05/19/24 03:47
CT Intake/Output/Weight
05/18/24 05/18/24 05/19/24
06:59 18:59 06:59
Intake Total 600 / 1540 240 / 480 240 / 480
Output Total 550 / 2400 147 / 5 600 / 2074
Balance 50 / -860 -1235 / -1595 -360 / -1595
SaO2: 95 (RA)
Physical Exam
-
General: Awake, Oriented and AOx3
Cardiovascular: Regular rate & rhythm, No Murmurs, No Rub and No Gallop
Respiratory: Decreased Breath Sounds (at bases, otherwise clear)
Sternum: Stable
Incision: Clean, Dry, Intact and Dressing Intact
Extremities: Edema +1
Data Reviewed
-
Lab Results: Results Reviewed
Medications: Active Meds Reviewed
Chest X-Ray: Report Reviewed and Image Reviewed
ECG: Report Reviewed and Image Reviewed
[2024-05-19 07:31] VITALS: BP 107/86
[2024-05-19 07:33] LABS: Glucose - Point of Care 129 mg/dl (70-99)
[2024-05-19] MEDS: PROTONIX 40 MG PO (07:57)
[2024-05-19] MEDS: NOVOLOG FLEXPEN-MODERATE RESISTANCE SC ×2 (07:57→10:59)
[2024-05-19] MEDS: KCL 20 MEQ PO (07:57)
[2024-05-19] MEDS: PLAVIX 75 MG PO (07:58)
[2024-05-19] MEDS: SENOKOT-S 1 TABLET PO (07:58)
[2024-05-19] MEDS: LOW STRENGTH ASPIRIN 81 MG PO (07:58)
[2024-05-19] MEDS: NEURONTIN 100 MG PO (07:58)
[2024-05-19] MEDS: PACERONE 200 MG PO (07:58)
[2024-05-19] MEDS: LASIX 40 MG IV (07:59)
[2024-05-19] MEDS: VITAMIN D3 (cholecalciferol) 125 MCG PO (07:59)
[2024-05-19] MEDS: LIDOCAINE 4% PATCH TOPICAL ×2 (08:00→09:28)
[2024-05-19] MEDS: TOPROL XL 25 MG PO (08:03)
--- NOTE | 2024-05-19 09:22 | PTCARENOTE ---
Assumed care of pt from night RN. Pt received awake and alert, Ox3. VSS, CM shows NSR 60, POX 98% Aquacell sternal dsg remains CDI, CT dsg remain intact. He denies any pain or discomfort at this time.
[2024-05-19 10:59] LABS: Glucose - Point of Care 127 mg/dl (70-99)
[2024-05-19 12:11] VITALS: BP 113/61
--- NOTE | 2024-05-19 14:39 | PTCARENOTE ---
All D/C infor reviewed with spouse and daughter, all qyestions answered. Pt D/C'd home with family.
--- NOTE | 2024-05-20 18:17 | W.DCSUMMARY ---
Discharge Summary
Discharge Data
Date of Admission: 05/13/24
Date of Discharge: 05/23/24
-
Pending Results: No
Hospital Course
Patient is a 78-year-old male electively admitted on 05/13/2024 for coronary artery bypass grafting and aortic valve replacement.
His past medical history is significant for paroxysmal atrial fibrillation, hypertension, hyperlipidemia, ER PHYSICIAN hydrocephalus with shunt, left lacunar CVA, interstitial lung disease, spinal stenosis, mixed restrictive and obstructive lung disease,
Raynaud's syndrome, history of pericarditis, history of MRSA, DJD right hip, BPH, osteoarthritis, cervical DJD.
Patient was admitted the morning of 05/13/2024 where later that morning he was brought to the operating room where he underwent a aortic valve replacement with a #25 Inspiris bioprosthetic valve. He also underwent coronary artery bypass grafting
with 4 distal anastomoses. The left internal mammary artery was utilized to bypass the LAD. Single separate saphenous vein grafts were placed to the first diagonal, obtuse marginal, right PDA. He tolerated the procedure well and was returned to
the surgical intensive care unit where he arrived in hemodynamically stable condition. He was initially supported on Levophed and dobutamine. His first night in the intensive care unit was uneventful. He did receive 1 unit of packed red blood
cells along with 1 unit of platelets.
Postoperative day 1 he was weaned off Levophed. He did receive an additional 2 units of packed red blood cells. He was started on a regimen of aspirin and Plavix.
Postoperative day #2 dobutamine was able to be weaned off. His monitoring lines were discontinued. He received a additional unit of packed red blood cells and was given 60 mg IV Lasix. His chest tubes were removed.
Postoperative day #3 he was given Diamox. His Cordis was removed. He did require his Norman to remain in place an additional day.
Postoperative day #4 he was again given a regimen of IV Lasix with good urinary output. He continue to participate in cardiac rehab.
Postoperative day #5 he again was diuresed with IV Lasix and had good urine output. His weight was down approximately 5 pounds. Pulse ox on room air was 97%. Hemoglobin was 7.5. Lower extremity edema was much improved.
Postoperative day #6 he ambulated in the hallway and also did the stairs with cardiac rehab. He was felt to be safe for discharge. He was given a full set of discharge instructions and follow-up appointments. He will be followed by our
transitional care nurses after his arrival at home. He will continue to receive Lasix at home and check his weight daily.
At time of discharge he was afebrile blood pressure 113/61. Heart rate 61 regular. Sinus rhythm on telemetry. His pulse ox on room air was 98%. His chest x-ray at time of discharge was essentially clear and showed much improvement.
Discharge Plan
-
Patient Disposition: Home (Routine Discharge)
Discharge Diagnosis/Procedures: CAD/ /AVR/CABG
Condition: Good
Diet: Low Fat, Low Cholesterol and Low Sodium
Activity: As tolerated
Driving Restrictions: Not until seen by your Dr
Bathing Restrictions: OK to Shower
Other Services: Cardiac Rehab
Specialty Instructions: Weigh Daily- Call MD for wt gain/loss 3 lbs overnight/5 lbs in 1 week
Activity Restrictions/Additional Instructions:
ACTIVITY:
-No strenuous activity: no heavy lifting, pushing, pulling anything over 15 pounds for one month
-continue to use stairs as tolerated
DRIVING RESTRICTIONS:
-No driving for one month or until approved by your surgeon
WOUND CARE:
-Shower daily. Use soap & water.
-No lotions, creams or powders on incision area.
DIET:
-continue a low fat/low cholesterol diet.
-IF you are diabetic, continue carb controlled diet.
CARDIAC REHAB:
-Please make appointment to start in 5-6 weeks with your local hospital program. (See Cardiac Rehabilitation Discharge Booklet).
SPECIALTY INSTRUCTIONS:
-Weigh yourself daily. Call your physician for any weight gain/loss of 3 lbs overnight or 5 lbs in one week.
-REPORT any clicking noise or uneven appearance of your sternum to your surgeon immediately.
-If you smoke, you are instructed to quit. The [place] smoking hotline phone number is [phone]
Referrals:
CT Transitional Care Nurse [Outside]
(
The Cardiothoracic Transitional Care Nurse will call you to set up a visit in 1-2 days.)
[facility] Cardiac [facility]hab [Outside] - 06/17/24 1:00 pm
(Cardiac Rehab Orientation and First Exercise appointment is on Monday June 17, 2024 at 1PM. Please complete pre-admission surveys via email prior to arrival.
The Cardiac Rehab gym is located on the first floor of the [facility].)
Aniya Chavez NP [Specified Professional Personl] - 07/03/24 10:20 am
Max Barnett DO [Family Provider] -
Misael Kingston MD [Active] - 06/18/24 1:30 pm
Prescriptions:
New
potassium chloride 20 mEq Tablet,Er Particles/Crystals
20 meq PO DAILY Qty: 10 2RF
furosemide [Lasix] 40 mg tablet
40 mg PO DAILY Qty: 10 2RF
sennosides-docusate sodium 8.6-50 mg Tablet
1 tab PO Q12 Qty: 15 0RF
clopidogrel 75 mg Tablet
75 mg PO DAILY Qty: 30 2RF
pantoprazole 40 mg Tablet,Delayed Release (Dr/Ec)
40 mg PO DAILY Qty: 30 2RF
acetaminophen 325 mg Tablet
650 mg PO Q4HPRN PRN (Reason: mild pain,headache,temp >101F ) Qty: 0 0RF
Continued
levothyroxine 25 MCG tablet
12.5 mcg PO DAILY
Lipasonin Melatonin
1 unit PO HS
atorvastatin 40 mg tablet
40 mg PO QPM Qty: 90 10RF
mycophenolate mofetil 250 mg Capsule
250 mg PO DAILY
aspirin 81 mg Tablet,Delayed Release (Dr/Ec)
81 mg PO DAILY
cholecalciferol (vitamin D3) [Vitamin D3] 125 mcg (5,000 unit) Tablet
125 mcg PO DAILY
metoprolol succinate 25 mg tablet extended release 24 hr
25 mg PO DAILY
Discontinued
Endotheal Defense
1 cap PO DAILY
Asilica Complex
1 unit PO DAILY
ljefcjz-tetjoozyt-wecf 333-133-5 mg Tablet
2 tab PO QPM
Elderberry
2 gum PO DAILY
Heal And Soothe
2 unit PO DAILY
Lj 100
1 unit PO DAILY
ashwagandha extract 500 mg tablet
2 tab PO DAILY
oregano oil
1 dose PO QPM
Berberine Gluco Gold
1 unit PO BID
Endotheal Defense Pom Plus
1 unit PO QPM
Dim + Bioperine
1 unit PO BID
Fungus Eliminator
2 units PO DAILY
Eyesyl + Bioperine
2 units PO DAILY
Qsartan Bromaline
2 units PO QPM
Respir-All
3 units PO DAILY
Antartic Krill Oil
1 unit PO DAILY
zinc 50 mg Tablet
50 mg PO DAILY
S-acetylglutathione 100 mg Tablet
100 mg PO DAILY
Gi Advantage
2 units PO QPM
Juvenon Blood Benny 7
3 units PO DAILY
Cornelius Q Plus Max
2 unit PO DAILY
Silica Complex
1 unit PO BID
Solgar Iron Free Formula V
1 unit PO DAILY
Super Healthy Prostate Plus
2 units PO QPM
Vitamin K Triple Play
1 unit PO DAILY
Discharge Orders:
Discharge Patient (As Directed); Ordered 05/19/24
Ordered By: Bill Donovan
Care Plan Goals
Care Plan Goals:
Problem: Readiness for enhanced knowledge related to diagnosis and treatment plan
Goal: Understand your diagnosis and treatment plan needs, including medications if applicable.
Instructions: Know your diagnosis, underlying causes and treatment plan options, including medications if applicable. Consult with your health care team to learn about your diagnosis and treatment plan, including medications if applicable.
Discharge Date and Time
Discharge Date/Time: 05/19/24 14:00
Print Language: KOREAN
== END 2024-05-19 14:00 | disposition home or self-care (01) | DRG 220 ==
LOC: IVU 04:52
PROVIDERS: Anesthesiology; Clinical Nurse Specialist Acute Care; Nurse Practitioner; Physician Assistant Medical; ADMITTING PHYSICIAN Thoracic Surgery (Cardiothoracic Vascular Surgery); CONSULT PHYSICIAN Internal Medicine Critical Care Medicine; FAMILY PHYSICIAN Family Medicine
PROC: B24BZZ4 Ultrasonography of Heart with Aorta, Transesophageal (ICD-10-PCS; 2024-05-13)
PROC: 5A1221Z Performance of Cardiac Output, Continuous (ICD-10-PCS; 2024-05-13)
PROC: 30233N1 Transfusion of Nonautologous Red Blood Cells into Peripheral Vein, Percutaneous Approach (ICD-10-PCS; 2024-05-13)
PROC: 02NN0ZZ Release Pericardium, Open Approach (ICD-10-PCS; 2024-05-13)
PROC: 02100ZC Bypass Coronary Artery, One Artery from Thoracic Artery, Open Approach (ICD-10-PCS; 2024-05-13)
PROC: 06BQ4ZZ Excision of Left Saphenous Vein, Percutaneous Endoscopic Approach (ICD-10-PCS; 2024-05-13)
PROC: 02RF08Z Replacement of Aortic Valve with Zooplastic Tissue, Open Approach (ICD-10-PCS; 2024-05-13)
PROC: 021209W Bypass Coronary Artery, Three Arteries from Aorta with Autologous Venous Tissue, Open Approach (ICD-10-PCS; 2024-05-13)
PROC: 30233R1 Transfusion of Nonautologous Platelets into Peripheral Vein, Percutaneous Approach (ICD-10-PCS; 2024-05-13)
DX: I08.0 Rheumatic disorders of both mitral and aortic valves (principal); D62 Acute posthemorrhagic anemia; I31.0 Chronic adhesive pericarditis; M33.13 Other dermatomyositis without myopathy; J84.9 Interstitial pulmonary disease, unspecified; J98.11 Atelectasis; N17.9 Acute kidney failure, unspecified; J90 Pleural effusion, not elsewhere classified; I25.10 Atherosclerotic heart disease of native coronary artery without angina pectoris; E03.9 Hypothyroidism, unspecified; R73.03 Prediabetes; I48.0 Paroxysmal atrial fibrillation; I73.00 Raynaud's syndrome without gangrene; I71.21 Aneurysm of the ascending aorta, without rupture; E78.5 Hyperlipidemia, unspecified; N40.0 Benign prostatic hyperplasia without lower urinary tract symptoms; I10 Essential (primary) hypertension; J44.9 Chronic obstructive pulmonary disease, unspecified; E66.09 Other obesity due to excess calories; R55 Syncope and collapse; E86.1 Hypovolemia; E87.70 Fluid overload, unspecified; R41.0 Disorientation, unspecified; I95.81 Postprocedural hypotension; D69.59 Other secondary thrombocytopenia; M47.812 Spondylosis without myelopathy or radiculopathy, cervical region; Z68.29 Body mass index [BMI] 29.0-29.9, adult; Z79.899 Other long term (current) drug therapy; Z86.14 Personal history of Methicillin resistant Staphylococcus aureus infection; Z86.73 Personal history of transient ischemic attack (TIA), and cerebral infarction without residual deficits; Z98.2 Presence of cerebrospinal fluid drainage device
CPT/HCPCS: 88305; 88311; 36415; 71045; 71046; 80048; 80053; 81003; 82248; 82330; 82565; 82805; 82810; 82947; 82962; 83036; 83735; 84132; 84302; 84520; 85014; 85018; 85025; 85027; 85049; 85610; 85730; 86850; 86900; 86901; 86920; 93005; 93312; 93320; 93325; 93880; 94002; P9016; P9045; P9073

== ENCOUNTER 2024-06-17 15:03 | Outpatient (RCR) | payer MEDICARE, OTHER, SELFPAY | END 2024-06-17 23:59 | disposition home or self-care (01) | LOC: CRHB 15:03 | PROVIDERS: ATTENDING PHYSICIAN Internal Medicine Cardiovascular Disease; FAMILY PHYSICIAN Family Medicine | DX: Z95.1 Presence of aortocoronary bypass graft (principal); Z95.4 Presence of other heart-valve replacement | CPT/HCPCS: G0422 ==

== ENCOUNTER 2024-07-11 14:47 | Inpatient (IN) | payer MEDICARE, OTHER, SELFPAY ==
[2024-07-11] VITALS (8 sets, daily range): BP systolic 108–139; BP diastolic 54–94; BMI 27.7; BMI 27.4
[2024-07-11 12:04] LABS: % Basophils 0.8 % (0-2); % Eosinophils 1.6 % (0-6); % Immature Granulocytes 0.3 % (0-0.5); % Lymphocytes 20.1 % (20.5-51.1); % Monocytes 9.7 % (1.7-9.3); % Neutrophils 67.5 % (42.2-75.2); Absolute Basophils 0.1 10^3/uL (0-0.2); Absolute Eosinophils 0.1 10^3/uL (0-0.7); Absolute Lymphocytes 1.3 10^3/uL (1.2-3.4); Absolute Monocytes 0.6 10^3/uL (0.1-0.6); Absolute Neutrophils 4.3 10^3/uL (1.4-6.5); Hematocrit 37.6 % (39.0-52.0); Hemoglobin 12.2 g/dL (13.0-18.0); Mean Corp Hgb Conc. 32.4 g/dL (33.0-37.0); Mean Corpuscular Hgb 28.2 pg (27.0-31.0); Mean Platelet Volume 9.6 fL (7.4-10.4); Nucleated Red Blood Cells % 0 % (-); Platelet Count 208 10^3/uL (130-400); Red Blood Cell Count 4.32 10^6/uL (4.70-6.10); Red Cell Dist. Width 14.4 % (11.5-14.5); White Blood Cell Count 6.3 10^3/uL (4.8-10.8)
[2024-07-11 12:22] LABS: ALT (SGPT) 24 U/L (0-50); AST (SGOT) 31 U/L (17-59); Albumin 4.4 g/dl (3.5-5.0); Alkaline Phosphatase 83 U/L (38-126); Blood Urea Nitrogen 30 mg/dl (9-20); Calcium 9.9 mg/dl (8.4-10.2); Carbon Dioxide 25 mmol/L (22-30); Chloride 102 mmol/L (98-107); Estimated Creatinine Clearance 47 ml/min; Glucose 104 mg/dl (70-99); Potassium 5.1 mmol/L (3.5-5.1); Sodium 138 mmol/L (135-145); Total Bilirubin 0.5 mg/dl (0.2-1.3); Total Protein 7.7 g/dl (6.3-8.2); eGFR 51.77
--- NOTE | 2024-07-11 13:22 | ED.GENMED ---
History of Present Illness
General
Chief Complaint: Post Operative Problem(s)
Source: patient and physician
Exam Limitations: none
Time Seen by Provider: 07/11/24 10:37
History of Present Illness
History of Present Illness:
78-year-old male sent by Dr. Barnett for worsening redness of left lower extremity. Does have some wounds and this is the leg that he had his CABG graft from. Patient states he noticed some ulcerations and hoped they would heal. He was put on
Keflex and Bactrim. Today sent by PCP due to increased redness. Patient denies fevers. Does report swelling.
Past History
Past History
ED Past Medical History: CAD, Valvular disease (aortic stenosis), Hypothyroidism and Other (dermatomyositis, normal pressure hydrocephalus)
ED Past Surgical History: Orthopedic (Right total hip replacement)
Social History
Tobacco: Non-smoker
Alcohol: None
Drug: None
Personal:
Living: with family
Employment: Employed
Family History
Family History: Other (Noncontributory)
Phy Exam
Physical Exam
Physical Exam:
CONSTITUTIONAL Patient alert and oriented to person, place and time. Well-appearing. Vital signs reviewed.
HEAD atraumatic, normocephalic.
EYES eyelids normal to inspection, Extraocular muscles intact, Conjunctiva normal, Sclera normal.
NECK normal range of motion, Trachea midline, no jugular venous distention.
RESPIRATORY CHEST No respiratory distress noted, Chest expansion equal, Bilateral breath sounds clear.
CARDIOVASCULAR regular rate and rhythm, Heart sounds normal.
UPPER EXTREMITY range of motion normal, Motor strength normal, no cyanosis, no edema.
LOWER EXTREMITY range of motion normal, Motor strength normal, no cyanosis, swelling of the left lower extremity. He has ulcerations/open wounds noted to the anterior left lower extremity. There is redness surrounding the left lower extremity up
into the tibial tuberosity on the left. His feet are warm and well-perfused. He does have some chronic venous stasis changes to the right lower extremity.
NEURO Speech normal, No focal motor deficits, Marta coma scale 15, Memory normal, Cranial Nerves intact to screening exam.
SKIN skin warm, dry, and normal in color.
Course
Orders/Labs/Results
Orders:
Orders
07/11/24 10:54
US Periph Venous LOWER Ext LT Urgent
Comment:
Reason For Exam: swelling, recent surgery
07/11/24 11:43
Complete Blood Count/With Diff Urgent
Comprehensive Metabolic Panel Urgent
Blood Culture Urgent
MARLON Source: Blood/Venous
Specimen Description:
Blood Culture Urgent
MARLON Source: Blood/Venous
Specimen Description:
07/11/24 13:23
Vancomycin 1 Gram/200 ml [Vancocin] 1 gram in 200 ml IV NOW
Abnormal Lab Results
07/11/24
11:43
RBC 4.32 L 10^6/uL
(4.70-6.10)
Hgb 12.2 L g/dL
(13.0-18.0)
Hct 37.6 L %
(39.0-52.0)
MCHC 32.4 L g/dL
(33.0-37.0)
Lymphocytes % 20.1 L %
(20.5-51.1)
Monocytes % 9.7 H %
(1.7-9.3)
BUN 30 H mg/dl
(9-20)
Creatinine 1.4 H mg/dL
(0.7-1.3)
Glucose 104 H mg/dl
(70-99)
07/11/24 11:43
07/11/24 11:43
Vital Signs
Initial and Last Documented VS:
Initial Vital Signs
Temp Pulse Resp BP Pulse Ox
97.9 F 80 18 133/70 98
07/11/24 09:04 07/11/24 09:04 07/11/24 09:04 07/11/24 09:04 07/11/24 09:04
Last Documented Vital Signs
Temp Pulse Resp BP Pulse Ox
97.9 F 68 11 117/94 100
07/11/24 09:04 07/11/24 11:45 07/11/24 11:45 07/11/24 11:15 07/11/24 11:17
MDM/Problems Addressed
MDM/Problems Addressed:
Cellulitis, outpatient antibiotic failure, venous stasis ulcer
*Radiology
Radiology exam reviewed: radiology read reviewed
*Pulse Oximetry
Patient hypoxic: no
*Critical Care Note
Total Time (30-74mins, 75-104mins- exclusive of procedures): Not Applicable
Data Reviewed
Source: patient
Patient Management
Discussion with other providers: Hospitalist
Escalation/DeEscalation of care consider admission/obs:
78-year-old male who presents with persistent and worsening left lower extremity redness. Question whether this is venous stasis versus infection. There is certainly concern for infection given the ulceration and open wounds. Given outpatient
antibiotic failure, admit for IV antibiotics and reassessment.
ED Attending Note
-
Portions of this chart may have been created with voice recognition software.� Occasional wrong word or��sound alike� substitutions may have occurred due to the inherent limitations of voice recognition software.
Discharge Plan
Departure
Patient Disposition: Admit
Date of Disposition: 07/11/24
Time of Disposition: 13:31
Admit to: Med/Surg
Presentation/result/management discussed w/ accepting MD/DO: Hospitalist
Discharge Problem:
Cellulitis, Outpatient antibiotic failure
Prescriptions:
No Action
levothyroxine 25 MCG tablet
12.5 mcg PO DAILY
atorvastatin 40 mg tablet
40 mg PO QPM Qty: 90 10RF
mycophenolate mofetil 250 mg Capsule
250 mg PO DAILY
aspirin 81 mg Tablet,Delayed Release (Dr/Ec)
81 mg PO DAILY
cholecalciferol (vitamin D3) [Vitamin D3] 125 mcg (5,000 unit) Tablet
125 mcg PO DAILY
metoprolol succinate 25 mg tablet extended release 24 hr
25 mg PO DAILY
clopidogrel 75 mg Tablet
75 mg PO DAILY Qty: 30 2RF
sulfamethoxazole-trimethoprim [Bactrim DS] 800-160 mg Tablet
1 tab PO BID
cephalexin 500 mg Capsule
500 mg PO QID
melatonin 1 mg/mL Liquid
1 mg PO HSPRN PRN (Reason: sleep)
Referrals:
Max Barnett DO [Family Provider] -
Interventions
Interventions:
*Risk Screen - Suicide Last Done: 07/11/24 09:04
*General Assessment Last Done: 07/11/24 09:04
*Neglect/Abuse Screening Last Done: 07/11/24 09:04
ED- Fall Risk Assessment Last Done: 07/11/24 11:12
*ED COVID-19 Vaccine History Last Done: 07/11/24 09:04
ED-Skin Assessment Last Done: 07/11/24 11:12
Discharge Date and Time
Print Language: SOUTH AFRICAN
[2024-07-11] MEDS: VANCOCIN 200 IV ×2 (13:41→17:58)
--- NOTE | 2024-07-11 14:05 | HPS.HSE ---
Family Physician
-
Family Physician: Max Barnett
Chief Complaint
-
redness left lower extremity
History of Present Illness
Mr. Goyo Camacho is a 78 yo man with hx CAD and aortic stenosis (s/p CABG and aortic valve replacement 05/13/24), paroxysmal atrial fibrillation, essential HTN, HLD, TRANSPORTATION JOB TITLES hydrocephalus s/p shunt, CVA, interstitial lung disease, hx MRSA, hx pericarditis,
hypothyroidism, dermatomyositis, Right THR presents to the ER with worsening redness LLE.
He noticed a scratch on his right chaudhari on Monday with mild oozing. The next day he noticed 2 wounds more distal and denies trauma. Leg began to increase in redness and he went to see his PCP 2 days ago who put him on Keflex and Bactrim. He states
he was taking the Keflex twice a day. He took 1.5 days of antibiotics. Yesterday he was on his feet a lot of the day at cardiac rehab. Today he noticed leg remained red and becoming increasingly painful to step on his heel. He was therefore sent
to the ER.
No fevers/chills. No chest pain or shortness of breath. He was SOB prior to CABG and now exercise tolerance has improved. No nausea/vomiting. No abdominal pain. No rash.
Lives at home with .
Medical History
Past Medical History
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
hypothyroidism, dermatomyositis, Right THR)
Past Surgical History: Reports Other (see above )
Social History
Tobacco: Non-smoker
Alcohol: Occasional
Family History
Family History: Not pertinent
Allergies / Home Medications
Allergies reflects when Allergies were last updated in [facility].
Home Medications with original date entered in [facility]
Allergy/Medication List:
Allergies
Allergy/AdvReac Type Severity Reaction Status Date / Time
No Known Allergies Allergy Verified 07/11/24 09:07
Home Medications
levothyroxine 25 mcg tablet 12.5 mcg PO DAILY Thyroid 06/04/20
atorvastatin 40 mg tablet 40 mg PO QPM #90 tabs 04/19/24
aspirin 81 mg tablet,delayed release 81 mg PO DAILY Blood Clot Prevention/Tx 04/29/24
cholecalciferol (vitamin D3) 125 mcg (5,000 unit) tablet (Vitamin D3) 125 mcg PO DAILY Supplement 04/29/24
mycophenolate mofetil 250 mg capsule 250 mg PO DAILY dermatomyositis 04/29/24
metoprolol succinate 25 mg tablet,extended release 24 hr 25 mg PO DAILY Blood Pressure 05/14/24
clopidogrel 75 mg tablet 75 mg PO DAILY Blood clot prevention/tx #30 tabs 05/19/24
cephalexin 500 mg capsule 500 mg PO QID 07/11/24
melatonin 1 mg/mL oral liquid 1 mg PO HSPRN PRN sleep 07/11/24
sulfamethoxazole 800 mg-trimethoprim 160 mg tablet (Bactrim DS) 1 tab PO BID 07/11/24
Review of Systems
-
History Source: Patient
A 12 point ROS was completed and negative except as noted: Yes
Physical Exam
Vital Signs
Vital Signs
Temp Pulse Resp BP Pulse Ox
97.9 F 68 11 117/94 100
07/11/24 09:04 07/11/24 11:45 07/11/24 11:45 07/11/24 11:15 07/11/24 11:17
Physical Exam
General: No Apparent Distress and Conversant
HEENT: PERRLA
Respiratory: Clear; No Wheezes
Cardiac: S1/S2 and Regular Rhythm
GI: Soft and Non Tender
Musculoskeletal: No Edema and Other (LLE with three anterior wounds, no exudate with surrounding redness and warmth; Ankle with full ROM no significant tenderness; heel redness )
Skin: Warm and Dry; No Rash
Neuro: AO x 3
Psych: Calm
Laboratory Results
-
07/11/24 11:43
07/11/24 11:43
Laboratory Results
Total Bilirubin 0.5 mg/dl (0.2-1.3) 07/11/24 11:43
AST 31 U/L (17-59) 07/11/24 11:43
ALT 24 U/L (0-50) 07/11/24 11:43
Alkaline Phosphatase 83 U/L (38-126) 07/11/24 11:43
Data Reviewed
-
Diagnostic Radiology: Report Reviewed by me
Lab Data: Labs Reviewed by me
Impression/Plan
-
Mr. Goyo Camacho is a 78 yo man with hx CAD and aortic stenosis (s/p CABG and aortic valve replacement 05/13/24), paroxysmal atrial fibrillation, essential HTN, HLD, TRANSPORTATION JOB TITLES hydrocephalus s/p shunt (09/08/20), CVA, interstitial lung disease, hx MRSA, hx
pericarditis, hypothyroidism, dermatomyositis, Right THR presents to the ER with worsening redness LLE, failure to improve after 36 hours outpatient antibiotics.
Triage VS: T 97.9, P 80, RR 18, BP 133/70, SPO2 98%
LABS: WBC 6.3, Hg 12.2, PLT 208, Na 138, K+ 5.1, Cl 102, CO2 25, BUN 30, Cr 1.4, Glucose 104, liver enzymes WNL
LE US:
IMPRESSION:
No evidence of left lower extremity deep venous thrombosis from the common femoral through the upper calf veins.
MAR: IV Vancomycin
LLE Cellulitis
-Patient is not septic; not responsive to outpatient antibiotics. Patient has taken 1.5 days with Keflex dosed BID per patient (2 pills BID). He was on his feet a lot yesterday with cardiac rehab which is likely contributing to persistent
redness/swelling
-continue IV Vancomycin
-add IV Cefazolin
-LLE Elevation on at least 2 pillows while in bed
-if failure to improve over next 24 hours then would consider ID consult
CAD s/p CABG 05/13/24
-continue RADIO COMMUNICATIONS SUPERINTENDENT asa/Plavix/statin/Metoprolol
-has not yet had AM medications
Aortic Stenosis s/p Aortic Valve replacement 05/13/24
Paroxysmal Atrial Fibrillation
-not on AC
Dermatomyositis
-continue [employer] COMM[employer]S SUPERINTENDENT Cellcept
[facility]; states sx nearly resolved
Hypothyroidism
-RADIO COMMUNICATIONS SUPERINTENDENT Synthroid
DVT PPx hep subQ
FULL CODE
[2024-07-11] MEDS: LOW STRENGTH ASPIRIN 81 MG PO (14:59)
[2024-07-11] MEDS: PLAVIX 75 MG PO (15:00)
[2024-07-11] MEDS: ANCEF 10 IV ×2 (15:01→23:57)
[2024-07-11] MEDS: TOPROL XL 25 MG PO (17:57)
[2024-07-11] MEDS: LIPITOR 40 MG PO (17:57)
[2024-07-11] MEDS: CELLCEPT 250 MG PO (17:57)
--- NOTE | 2024-07-11 18:47 | PHA.VAN.IN ---
Assessment
- Assessment
Renal Function: Appears elevated from baseline (05/16/24 BASELINE SCR: 1.1)
Concomitant Antimicrobials: ANCEF
- Previous Dosing Experience
Previous Regimen: NONE
Plan
- Plan
Initial / Loading Dose: 2GM TOTAL
Maintenance Regimen: DOSING BY RANDOM LEVELS
Monitoring: RANDOM VANCOMYCIN LEVEL 07/12/24 AM
Pharmacokinetics Vancomycin I
- -
Patient Age: 78
Patient Sex: Male
Vancomycin Day #: 1
Indication: Skin And Soft Tissue
Requesting Provider: CHINMAY
Height / Weight:
Height 5 ft 11 in
Actual Weight 89.131 kg
Pertinent Past Medical History: FAILED OUTPT TX WITH KEFLEX
- Vital Signs / Lab Results
Temp Pulse Resp BP Pulse Ox
97.9 F 73 18 139/70 95
07/11/24 16:42 07/11/24 16:42 07/11/24 16:42 07/11/24 16:42 07/11/24 16:42
Lab Results - Hematology
07/11/24
11:43
WBC 6.3
Lab Results - Chemistry
07/11/24
11:43
BUN 30 H
Creatinine 1.4 H
Estimated Creat Clear 47
Albumin 4.4
[2024-07-11] MEDS: HEPARIN 5000 UNITS SC (20:24)
[2024-07-12] MEDS: SYNTHROID 12.5 MCG PO (05:16)
[2024-07-12 06:28] LABS: Hematocrit 40.4 % (39.0-52.0); Hemoglobin 13.2 g/dL (13.0-18.0); Mean Corp Hgb Conc. 32.7 g/dL (33.0-37.0); Mean Corpuscular Hgb 28.4 pg (27.0-31.0); Mean Corpuscular Volume 86.9 fL (80.0-94.0); Mean Platelet Volume 9.6 fL (7.4-10.4); Platelet Count 241 10^3/uL (130-400); Red Blood Cell Count 4.65 10^6/uL (4.70-6.10); Red Cell Dist. Width 14.4 % (11.5-14.5); White Blood Cell Count 7.2 10^3/uL (4.8-10.8)
[2024-07-12 06:39] LABS: Vancomycin Random 11.9 ug/ml
[2024-07-12 06:58] LABS: Blood Urea Nitrogen 24 mg/dl (9-20); Calcium 9.8 mg/dl (8.4-10.2); Carbon Dioxide 26 mmol/L (22-30); Chloride 101 mmol/L (98-107); Estimated Creatinine Clearance 47 ml/min; Glucose 104 mg/dl (70-99); Magnesium 2.2 mg/dl (1.6-2.3); Potassium 4.5 mmol/L (3.5-5.1); Sodium 141 mmol/L (135-145); eGFR 51.77
[2024-07-12 07:00] VITALS: BP 108/87
--- NOTE | 2024-07-12 08:49 | PHA.VAN.FU ---
Vancomycin Assessment / Plan
- Assessment
Renal Function: Stable
WBC's are: WNL
In the past 24 hrs, patient has been: Afebrile
Concomitant Antimicrobials: cefazolin
- Assessment - Therapeutic Drug Monitoring
Random Level: 11.9 - drawn ~12H after divided 2g loading dose
- Dosing Plan
Dosing by Level: Re-dose today (Vanc 1250mg)
- Monitoring Plan
Random Level: 07/13 06
MRSA Screen: Ordered per protocol
- Follow Up
Pharmacy will continue to follow.
Vancomycin Follow UP
- -
Patient Age: 78
Patient Sex: Male
Vancomycin Day #: 2
Indication: Skin And Soft Tissue
Requesting Provider: Dr. Yanes
Pertinent Antimicrobial Allergies:
NKDA
Height / Weight:
Height 5 ft 11 in
Actual Weight 89.131 kg
Pertinent Past Medical History: Dermatomyositis (mycophenolate)
- Vital Signs / Lab Results
Temp Pulse Resp BP Pulse Ox
97.8 F 77 16 120/66 95
07/11/24 23:40 07/11/24 23:40 07/11/24 23:40 07/11/24 23:40 07/11/24 23:40
Lab Results - Hematology
07/11/24 07/12/24
11:43 05:57
WBC 6.3 7.2
Lab Results - Chemistry
07/11/24 07/12/24
11:43 05:57
BUN 30 H 24 H
Creatinine 1.4 H 1.4 H
Estimated Creat Clear 47 47
Albumin 4.4
Therapeutic Drug Monitoring
Random Vancomycin 11.9 ug/ml 07/12/24 05:57
[2024-07-12] MEDS: VITAMIN D3 (cholecalciferol) 125 MCG PO (09:00)
[2024-07-12] MEDS: ASPIR LOW (ENTERIC COATED) 81 MG PO (09:00)
[2024-07-12] MEDS: PROTONIX 40 MG PO (09:00)
[2024-07-12] MEDS: CELLCEPT 250 MG PO (09:00)
[2024-07-12] MEDS: TOPROL XL 25 MG PO (09:00)
[2024-07-12] MEDS: HEPARIN 5000 UNITS SC ×2 (09:00→20:52)
[2024-07-12] MEDS: PLAVIX 75 MG PO (09:00)
[2024-07-12] MEDS: ANCEF 10 IV ×3 (09:03→23:19)
--- NOTE | 2024-07-12 09:40 | CON.ID ---
Consultation
-
Date/Time Consultation Requested: July 12, 2024 0910
Date/Time Consultation Performed: July 12, 2024 0940
Requesting Provider: Dr. Tea Correa
Performing Provider: Dr. Roselia David
Reason for Consultation: Cellulitis at vein harvest site
Chief Complaint / Past History
Chief Complaint
left leg redness
History of Present Illness
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
and redness. Patient noted a wound on his chaudhari over the weekend. Next day he noticed 2 more wounds with associated edema and redness. He saw his primary care physician on Monday who prescribed cephalexin and Bactrim. However condition did not
improve and therefore he came to the hospital on . No fevers or chills. He was started on vancomycin and cefazolin. Today he reports the edema has improved. He does not know how he developed those wounds. He denies any injury to the
left leg. No fevers or chills. Has some left foot pain with ambulation on hard floor.
Past History
Additional Past Medical History:
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
hypertension
CAD status post recent CABG x 4
Bioprosthetic aortic valve replacement May 13, 2024
Hypertension
Paroxysmal atrial fibrillation
Dyslipidemia
CVA
Interstitial lung disease
Normal pressure hydrocephalus status post shunt
BPH
History of pericarditis
Right total hip replacement
Allergy History:
No Known Allergies Allergy (Verified 07/11/24 09:07)
Medications Reviewed: Yes
Current Antibiotics:
Cefazolin
Vancomycin
Social History
Tobacco: Non-Smoker
Alcohol: Occasional
Drug: None
Personal:
Family History
Family History: Not Pertinent
Review of Systems
Review of Systems
General: Negative Fever, Chills or Change in Appetite
HEENT: Negative Sinus Problems, Headache or Pharyngitis
Respiratory: Negative Dyspnea or Cough
Gasteroenterology: Negative Nausea or Vomiting
Genital / Urological: Negative Dysuria or Flank Pain
Endocrine: Negative Weakness
Neurological: Negative Headache or Dizziness
All systems: All other systems were reviewed and were negative
Vital Signs
Temp Pulse Resp BP Pulse Ox
97.8 F 77 16 120/66 95
07/11/24 23:40 07/11/24 23:40 07/11/24 23:40 07/11/24 23:40 07/11/24 23:40
Physical Exam
Physical Exam
Constitutional: No Acute Distress and Comfortable
Eyes: Sclera Anicteric and Erythema
Cardiovascular: Regular Rate and S1/S2
Gastrointestinal: Soft, Non Tender, Non Distended and Normal Bowel Sounds
Genito-Urinary: Negative CVA Tenderness
Extremities: Edema (LLE 2+), Erythema (anterior chaudhari, mildly warm) and Other (Foot erythema resolves with leg raising)
Skin: Dry (left foot and ankle very dry skin)
Wound: Other (Left LE - 4 superficial wounds in a row along pre-tibia, scant yellow drainage)
Lab / Diagnostic Study Results
07/12/24 05:57
07/12/24 05:57
Abs Immat Gran (auto) 0.0 10^3/uL (0-0.05) 07/11/24 11:43
Absolute Neuts (auto) 4.3 10^3/uL (1.4-6.5) 07/11/24 11:43
Absolute Lymphs (auto) 1.3 10^3/uL (1.2-3.4) 07/11/24 11:43
Absolute Monos (auto) 0.6 10^3/uL (0.1-0.6) 07/11/24 11:43
Absolute Basos (auto) 0.1 10^3/uL (0-0.2) 07/11/24 11:43
Immature Gran % 0.3 % (0-0.5) 07/11/24 11:43
Neutrophils % 67.5 % (42.2-75.2) 07/11/24 11:43
Lymphocytes % 20.1 % (20.5-51.1) L 07/11/24 11:43
Monocytes % 9.7 % (1.7-9.3) H 07/11/24 11:43
Eosinophils % 1.6 % (0-6) 07/11/24 11:43
Basophils % 0.8 % (0-2) 07/11/24 11:43
Microbiology Results
Micro:
07/11/24 11:43 Blood Culture - Pending
Blood/Venous
07/11/24 11:43 Blood Culture - Pending
Blood/Venous
07/11/24 LLE periph venous US: No evidence of left lower extremity deep venous thrombosis from the common femoral through the upper calf veins.
Assessment / Plan
# Acute LLE cellulitis
- hx CABG , left thigh SV donor harvest (
- DC Vancomycin
-Continue cefazolin.
- If continues to improve tomorrow, can transition to cephalexin 500mg po qid to complete 7 day course.
- Apply adaptic to wounds.
-Moisturize dry skin
-Elevate LLE.
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
hypertension
CAD status post recent CABG x 4
Bioprosthetic aortic valve replacement May 13, 2024
Hypertension
Paroxysmal atrial fibrillation
Dyslipidemia
CVA
Interstitial lung disease
Normal pressure hydrocephalus status post shunt
BPH
History of pericarditis
Right total hip replacement
--- NOTE | 2024-07-12 11:44 | CM ---
Pt seen bedside. Pt lives w/ spouse in a [facility] w/ 3 steps to enter
Prev. independent. Pt denies any DME for functioning
Denies SNF hx. Currently receiving cardio rehab at [place] past 4 weeks before hospitalization
Had OP rehab at [facility] for hip replacement in the past
Had VN/PT in the past, pt doesn't remember agency
Address, point of contacts and insurance verified
PCP: Dr. Thee Carney
Pharmacy: [facility]
CM will cont. following for d/c needs
Plan: Home w/ no needs anticipated
--- NOTE | 2024-07-12 11:50 | W.PN.HOSP.TC ---
Today's Communication/Plan
-
IV Abx today, likely DC in 24 hours on PO Abx and PCP f/u
Assessment / Plan
Assessment / Plan
Assessment:
LLE Cellulitis
- not septic, not responsive to outpatient antibiotics
- continue IV Ancef, transition to PO Keflex per ID tomorrow and discharge
- LLE elevation
CAD s/p CABG 05/13/24
- continue SURG TECH asa/Plavix/statin/Metoprolol
Aortic Stenosis s/p Aortic Valve replacement 05/13/24
Paroxysmal Atrial Fibrillation
- not on AC
Dermatomyositis
- continue SURG TECH Cellcept
- follows at [facility]; states sx nearly resolved
Hypothyroidism
- SURG TECH Synthroid
DVT ppx: SC Heparin
Code: Full
Anticipated Discharge: Within 24 hours
Subjective/Interval History
-
Date of Service: July 12, 2024
denies any new complaints at present
Objective Data
-
Labs:
Laboratory Results
07/12/24
05:57
WBC 7.2
Hgb 13.2
Hct 40.4
Plt Count 241
Sodium 141
Potassium 4.5
Chloride 101
Carbon Dioxide 26
BUN 24 H
Creatinine 1.4 H
Glucose 104 H
Calcium 9.8
Vital Signs:
Vital Signs
Temp Pulse Resp BP Pulse Ox
98.1 F 72 24 108/87 96
07/12/24 07:00 07/12/24 07:00 07/12/24 07:00 07/12/24 07:00 07/12/24 07:00
I&O
07/11/24 07/12/24 07/13/24
06:59 06:59 06:59
Intake Total 480 / 480
Balance 480 / 480
Physical Exam
-
General: No Apparent Distress
HEENT: Normocephalic and Atraumatic
Respiratory: Negative Wheezes
Cardiac: Regular Rhythm and S1/S2
GI: Soft and Nontender
Musculoskeletal: Other (LLE cellulitis/edema, wrapped)
Neuro: AO x 3
Hematologic / Lymphatic: No Lymphadenopathy
Psych: Calm
Data Reviewed
-
Total Time Spent with Patient (in minutes): 41
Labs: Labs Reviewed by me
[2024-07-12 15:00] VITALS: BP 123/73
[2024-07-12] MEDS: LIPITOR 40 MG PO (18:14)
[2024-07-12 23:23] VITALS: BP 126/63
[2024-07-13] MEDS: SYNTHROID 12.5 MCG PO (06:11)
[2024-07-13 07:00] VITALS: BP 118/75
[2024-07-13 07:32] LABS: Hematocrit 39.7 % (39.0-52.0); Hemoglobin 13.1 g/dL (13.0-18.0); Mean Corpuscular Hgb 29.2 pg (27.0-31.0); Mean Corpuscular Volume 88.4 fL (80.0-94.0); Mean Platelet Volume 9.8 fL (7.4-10.4); Platelet Count 204 10^3/uL (130-400); Red Blood Cell Count 4.49 10^6/uL (4.70-6.10); Red Cell Dist. Width 14.3 % (11.5-14.5); White Blood Cell Count 5.8 10^3/uL (4.8-10.8)
[2024-07-13 07:50] LABS: Blood Urea Nitrogen 24 mg/dl (9-20); Calcium 9.8 mg/dl (8.4-10.2); Carbon Dioxide 28 mmol/L (22-30); Chloride 102 mmol/L (98-107); Estimated Creatinine Clearance 51 ml/min; Glucose 98 mg/dl (70-99); Sodium 140 mmol/L (135-145); eGFR 56.58
[2024-07-13] MEDS: CELLCEPT 250 MG PO (09:19)
[2024-07-13] MEDS: ANCEF 10 IV (09:19)
[2024-07-13] MEDS: PROTONIX 40 MG PO (09:21)
[2024-07-13] MEDS: PLAVIX 75 MG PO (09:21)
[2024-07-13] MEDS: ASPIR LOW (ENTERIC COATED) 81 MG PO (09:21)
[2024-07-13] MEDS: TOPROL XL 25 MG PO (09:21)
[2024-07-13] MEDS: VITAMIN D3 (cholecalciferol) 125 MCG PO (09:22)
[2024-07-13] MEDS: HEPARIN 5000 UNITS SC (09:22)
--- NOTE | 2024-07-13 11:06 | W.PN.ID1 ---
Date of Service
Date of Service: July 13, 2024
Today's Communication
No objection to discharge from Infectious Diseases standpoint. Transition to Keflex at discharge. See below�
Assessment / Plan
# Acute LLE cellulitis
- hx CABG , left thigh SV donor harvest (
- Erythema noted to be improved. Can transition to cephalexin 500mg po qid to complete 7 day course.
- Apply adaptic to wounds.
-Moisturize dry skin
-Patient counseled to continue with lower extremity elevation once home.
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
hypertension
CAD status post recent CABG x 4
Bioprosthetic aortic valve replacement May 13, 2024
Hypertension
Paroxysmal atrial fibrillation
Dyslipidemia
CVA
Interstitial lung disease
Normal pressure hydrocephalus status post shunt
BPH
History of pericarditis
Right total hip replacement
Chief Complaint
-: Cellulitis
Subjective / Review of Systems
Review of Systems: No Fever and No Chills
Vital Signs / Physical Exam
Vital Signs
Vital Signs
Temp Pulse Resp BP Pulse Ox
97.9 F 90 18 118/75 97
07/13/24 07:00 07/13/24 07:00 07/13/24 07:00 07/13/24 07:00 07/13/24 07:00
Physical Exam
Constitutional: No Acute Distress, Comfortable and Non-toxic
Eyes: Sclera Anicteric
Cardiovascular: S1/S2; Negative S3/S4
Pulmonary: Non Labored
Gastrointestinal: Soft and Non Tender
Extremities: Edema (1+ lower extremity edema) and Erythema (Mild; left lower extremity)
Wound: Other (Several superficial wounds noted left lower extremity)
Neurological: Awake and Alert
Psychological: Calm
Objective Data
Lab Data
Lab Results
10/26/24 06:01
07/13/24 06:01
Estimated Creat Clear 51 ml/min 07/13/24 06:01
Total Bilirubin 0.5 mg/dl (0.2-1.3) 07/11/24 11:43
AST 31 U/L (17-59) 07/11/24 11:43
ALT 24 U/L (0-50) 07/11/24 11:43
Alkaline Phosphatase 83 U/L (38-126) 07/11/24 11:43
Most recent labs reviewed.
Micro Results:
07/12/24 23:24 MRSA Screen - Pending
Nose
07/11/24 11:43 Blood Culture - Preliminary
Blood/Venous No Growth in 24 hours- Final report to follow
07/11/24 11:43 Blood Culture - Preliminary
Blood/Venous No Growth in 24 hours- Final report to follow
07/11/24 LLE periph venous US: No evidence of left lower extremity deep venous thrombosis from the common femoral through the upper calf veins.
Care Review
Plan reviewed with: Physician (Hospitalist)
--- NOTE | 2024-07-13 13:36 | W.PN.HOSP.TC ---
Today's Communication/Plan
-
dc home
Assessment / Plan
Assessment / Plan
Assessment:
LLE Cellulitis
- not septic, not responsive to outpatient antibiotics
- discharge on cephalexin 500mg po qid to complete 7 day course.
- LLE elevation
CAD s/p CABG 05/13/24
- continue MEDICAL AUDITOR asa/Plavix/statin/Metoprolol
Aortic Stenosis s/p Aortic Valve replacement 05/13/24
Paroxysmal Atrial Fibrillation
- not on AC
Dermatomyositis
- continue MEDICAL AUDITOR Cellcept
- follows at [facility]; states sx nearly resolved
Hypothyroidism
- MEDICAL AUDITOR Synthroid
DVT ppx: SC Heparin
Code: Full
More than 30 minutes spent in discharge including
Final examination of the patient
Summarizing hospital stay
Instructions for continuing care to all relevant caregivers
Preparation of discharge records, prescriptions, and referral forms
Total time spent (in minutes): 41
Anticipated Discharge: Today
Subjective/Interval History
-
Date of Service: July 13, 2024
no complaints presently
Objective Data
-
Labs:
Laboratory Results
07/13/24
06:01
WBC 5.8
Hgb 13.1
Hct 39.7
Plt Count 204
Sodium 140
Potassium 5.0
Chloride 102
Carbon Dioxide 28
BUN 24 H
Creatinine 1.3
Glucose 98
Calcium 9.8
Vital Signs:
Vital Signs
Temp Pulse Resp BP Pulse Ox
97.9 F 90 18 118/75 97
07/13/24 07:00 07/13/24 07:00 07/13/24 07:00 07/13/24 07:00 07/13/24 07:00
I&O
07/12/24 07/13/2407/14/24
06:59 06:59 06:59
Intake Total 480 / 480 1440 / 1440
Balance 480 / 480 1440 / 1440
Physical Exam
-
General: No Apparent Distress
HEENT: Normocephalic and Atraumatic
Respiratory: Negative Wheezes
Cardiac: S1/S2
GI: Soft and Nontender
Neuro: AO x 3
Hematologic / Lymphatic: No Lymphadenopathy
Psych: Calm
Data Reviewed
-
Total Time Spent with Patient (in minutes): 41
Labs: Labs Reviewed by me
--- NOTE | 2024-07-13 13:42 | W.DS.TRANS ---
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
-
Discharge Instructions:
Discharge Diagnosis/Procedures LLE cellulitis
Diet Low Cholesterol
Activity As tolerated
Bathing Restrictions None
Instructions:
Stand-Alone Forms:
Changes to Home Medications: No
Discharge Medications:
DC Medications w/original date entered in [employer]
levothyroxine 25 mcg tablet 12.5 mcg PO DAILY Thyroid 06/04/20
atorvastatin 40 mg tablet 40 mg PO QPM #90 tabs 04/19/24
aspirin 81 mg tablet,delayed release 81 mg PO DAILY Blood Clot Prevention/Tx 04/29/24
cholecalciferol (vitamin D3) 125 mcg (5,000 unit) tablet (Vitamin D3) 125 mcg PO DAILY Supplement 04/29/24
mycophenolate mofetil 250 mg capsule 250 mg PO DAILY dermatomyositis 04/29/24
metoprolol succinate 25 mg tablet,extended release 24 hr 25 mg PO DAILY Blood Pressure 05/14/24
clopidogrel 75 mg tablet 75 mg PO DAILY Blood clot prevention/tx #30 tabs 05/19/24
melatonin 1 mg/mL oral liquid 1 mg PO HSPRN PRN sleep 07/11/24
cephalexin 500 mg capsule 500 mg PO QID Infection #28 caps 07/13/24
Home Medication Changes
Pending Results: No
Total time spent discharging patient (in min): 41
--- NOTE | 2024-07-13 13:58 | CM ---
CM reviewed chart, patient for discharge today. Patient seen bedside, denies any needs from CM at this time. Patient reports he has transportation home. CM will continue to follow for all discharge planning needs.
Plan; home no needs.
== END 2024-07-13 16:05 | disposition home or self-care (01) | DRG 603 ==
LOC: 4 WEST ACU 14:47
PROVIDERS: ADMITTING PHYSICIAN Student in an Organized Health Care Education/Training Program; ATTENDING PHYSICIAN Internal Medicine; EMERGENCY PHYSICIAN Emergency Medicine; FAMILY PHYSICIAN Family Medicine; OTHER PHYSICIAN Internal Medicine Infectious Disease
DX: L03.116 Cellulitis of left lower limb (principal); M33.10 Other dermatomyositis, organ involvement unspecified; J84.9 Interstitial pulmonary disease, unspecified; I25.10 Atherosclerotic heart disease of native coronary artery without angina pectoris; Z95.1 Presence of aortocoronary bypass graft; I35.0 Nonrheumatic aortic (valve) stenosis; I48.0 Paroxysmal atrial fibrillation; E03.9 Hypothyroidism, unspecified; I10 Essential (primary) hypertension; E78.5 Hyperlipidemia, unspecified; Z86.14 Personal history of Methicillin resistant Staphylococcus aureus infection; Z86.73 Personal history of transient ischemic attack (TIA), and cerebral infarction without residual deficits; Z95.3 Presence of xenogenic heart valve; Z96.641 Presence of right artificial hip joint
CPT/HCPCS: 80048; 80053; 80202; 83735; 85025; 85027; 87040; 87070; 93971; 96365; 99285

== ENCOUNTER 2024-07-17 15:26 | Outpatient (RCR) | payer MEDICARE, OTHER, SELFPAY | END 2024-07-17 23:59 | disposition home or self-care (01) | LOC: CRHB 15:26 | PROVIDERS: ATTENDING PHYSICIAN Internal Medicine Cardiovascular Disease; FAMILY PHYSICIAN Family Medicine | DX: I25.10 Atherosclerotic heart disease of native coronary artery without angina pectoris (principal); Z95.1 Presence of aortocoronary bypass graft; Z95.4 Presence of other heart-valve replacement | CPT/HCPCS: G0422; G0423 ==

== ENCOUNTER → 2024-07-25 13:04 | Outpatient (REF) | payer MEDICARE, OTHER, SELFPAY | LOC: HWRCS 13:04 | PROVIDERS: ATTENDING PHYSICIAN Nurse Practitioner; FAMILY PHYSICIAN Family Medicine | DX: I48.0 Paroxysmal atrial fibrillation (principal); I25.10 Atherosclerotic heart disease of native coronary artery without angina pectoris; Z95.2 Presence of prosthetic heart valve | CPT/HCPCS: 93306 ==

== ENCOUNTER 2024-08-16 14:58 | Outpatient (RCR) | payer MEDICARE, OTHER, SELFPAY | END 2024-08-16 23:59 | disposition home or self-care (01) | LOC: CRHB 14:58 | PROVIDERS: ATTENDING PHYSICIAN Internal Medicine Cardiovascular Disease; FAMILY PHYSICIAN Family Medicine | DX: I25.10 Atherosclerotic heart disease of native coronary artery without angina pectoris (principal); Z95.1 Presence of aortocoronary bypass graft; Z95.4 Presence of other heart-valve replacement | CPT/HCPCS: G0422; G0423 ==

== ENCOUNTER 2024-09-16 15:37 | Outpatient (RCR) | payer MEDICARE, OTHER, SELFPAY | END 2024-09-16 23:59 | disposition home or self-care (01) | LOC: CRHB 15:37 | PROVIDERS: ATTENDING PHYSICIAN Internal Medicine Cardiovascular Disease; FAMILY PHYSICIAN Family Medicine | DX: Z95.1 Presence of aortocoronary bypass graft (principal); I25.10 Atherosclerotic heart disease of native coronary artery without angina pectoris (principal); Z95.4 Presence of other heart-valve replacement | CPT/HCPCS: G0422; G0423 ==

== ENCOUNTER 2024-09-20 14:21 | Outpatient (RCR) | payer MEDICARE, OTHER, SELFPAY | END 2024-09-20 23:59 | disposition home or self-care (01) | LOC: CRHB 14:21 | PROVIDERS: ATTENDING PHYSICIAN Internal Medicine Cardiovascular Disease; FAMILY PHYSICIAN Family Medicine | DX: I25.10 Atherosclerotic heart disease of native coronary artery without angina pectoris (principal); Z95.1 Presence of aortocoronary bypass graft; Z95.4 Presence of other heart-valve replacement | CPT/HCPCS: G0422; G0423 ==

== ENCOUNTER → 2024-12-18 12:53 | Outpatient (REF) | payer MEDICARE, OTHER, SELFPAY | LOC: HWRAD 12:53 | PROVIDERS: ATTENDING PHYSICIAN Podiatrist; FAMILY PHYSICIAN Family Medicine | DX: S91.319A Laceration without foreign body, unspecified foot, initial encounter (principal); M79.672 Pain in left foot | CPT/HCPCS: 76882 ==

== ENCOUNTER → 2024-12-31 09:31 | Outpatient (REF) | payer MEDICARE, OTHER, SELFPAY | LOC: MRI 09:31 | PROVIDERS: ATTENDING PHYSICIAN Podiatrist; FAMILY PHYSICIAN Family Medicine | DX: M72.2 Plantar fascial fibromatosis (principal); M86.172 Other acute osteomyelitis, left ankle and foot | CPT/HCPCS: 73723; 76014; 76015; A9575 ==

== ENCOUNTER → 2025-01-16 12:46 | Outpatient (REF) | payer MEDICARE, OTHER, SELFPAY | LOC: RAD 12:46 | PROVIDERS: ATTENDING PHYSICIAN Podiatrist; FAMILY PHYSICIAN Family Medicine | DX: S91.312A Laceration without foreign body, left foot, initial encounter (principal); I73.9 Peripheral vascular disease, unspecified | CPT/HCPCS: 93922; 93925 ==

== ENCOUNTER 2025-04-30 06:29 | Day surgery (SDC) | payer MEDICARE, OTHER, SELFPAY ==
[2025-04-22 09:09] VITALS: BMI 30.3
[2025-04-30] VITALS (22 sets, daily range): BP systolic 91–133; BP diastolic 54–87
--- NOTE | 2025-04-30 07:08 | W.SUR.PREOP ---
Pre-Operative Surgical Note
-
I have examined this patient prior to the performance of the scheduled procedure.
The patient's condition is unchanged from the time of the current History and
Physical and the patient is able to undergo the scheduled procedure.
--- NOTE | 2025-04-30 08:12 | W.SUR.POST ---
Surgical Immediate Post Op
Note
Pre Op Diagnosis: PAD
Post Op Diagnosis: PAD
Procedure Performed: Aortogram and left lower extremity diagnostic angiogram
Primary Surgeon: Garfield Jones MD
Secondary Surgeons: N/A
Anesthesia: MAC
Estimated Blood Loss: 2ml
Fluids: See anesthesia flow sheets
Drains/Shunts: N/A
Specimens/Cultures: None
Doppler/Duplex/Angio (Y/N): Y
Complications: None
Operative Findings: Peripheral arterial disease not amendable to endo revascularization, will proceed with workup for possible arterial bypass
[2025-04-30] MEDS: NSS 500 IV ×2 (10:46→12:59)
--- NOTE | 2025-04-30 17:45 | OR.RPT ---
Addendum entered and electronically signed by Garfield Jones MD 04/30/25 17:47:
Note the segment of the peroneal that was reconstituted, and then that was beyond the focal additional stenosis was located approximately 21 cm from the inferior edge of the patella.
Original Note:
Operative Report
Operative Report
PROCEDURE DATE: 04/30/25
Preoperative diagnosis: Severe peripheral arterial disease, possible chronic limb threatening ischemia.
Postoperative diagnosis: Same
Procedure:
1. Duplex assisted cannulation of right common femoral artery.
2. Aortogram and pelvic angiogram.
3. Diagnostic left lower extremity arteriogram.
4. Right femoral angiogram.
5. Supervision and interpretation.
Surgeon: Robert
Welfare Eligibility Worker: None
Complications: None
Anesthesia: Local, sedation
Fluoroscopy:
3.9 min
53 mGy
13.88 gy.cm2
Indications for procedure:
Severe peripheral arterial disease. He had a nonhealing wound chronically. Eventually the wound finally slowly did heal, but patient had a loss of his fat pad on the heel and was having severe pain in the heel that was unclear if this was severe
claudication or due to fat pad atrophy secondary to his chronic ischemia. Therefore we discussed potential benefits/risks of angiography. Patient understood all wished to proceed.
Description of procedure:
Patient was identified, brought to the operating room. Placed on the table in the supine position. After the adequate administration of anesthesia, the patient was prepped and draped in the standard surgical fashion. A standard preoperative
timeout was undertaken and everybody was in agreement with the plan.
The right common femoral artery was accessed with a micropuncture kit under direct duplex ultrasound guidance. A 5 Bengali sheath was then advanced over a 0.035 inch wire, and a ronquillo's hook catheter was advanced into the abdominal aorta.
Aortogram and pelvic angiogram was obtained. Findings as follows:
Infrarenal aorta: Patent with no significant stenosis, but diffuse eccentric plaque.
Right common iliac artery: Diffuse eccentric plaque, but no definitive stenosis.
Right external iliac artery: Patent with no significant stenosis.
Left common iliac artery: Diffuse eccentric plaque but no definitive stenosis.
Left external iliac artery: Patent with no significant stenosis.
Using a floppy angled hydrophilic wire, the left common femoral artery was cannulated and the catheter was advanced. Left lower extremity arteriogram was obtained. Findings as follows:
Common femoral artery: Patent with no significant stenosis.
Profunda femoris artery: Patent with no significant stenosis. Eccentric calcified plaque noted.
Superficial femoral artery: Patent with some mild luminal irregularities, but no significant stenosis. Eccentric calcified plaque noted.
Popliteal artery: Patent with no significant stenosis, some luminal irregularities, but no stenosis noted.
Anterior tibial artery: Chronically occluded. Collaterals reconstituted the dorsalis pedis on the foot. However relatively poor distal digital collateralization.
Tibial peroneal trunk: Chronically occluded.
Peroneal artery: Occluded for its first 3 to 4 cm and then reconstituted via collaterals. About 4 to 6 cm beyond that segment there is another focal string-like stenosis. Beyond here the artery was nicely patent to the ankle and gave collaterals
which reconstituted the dorsalis pedis artery on the foot.
Posterior tibial artery: Chronically occluded.
At this point I felt the patient would be best served with surgical bypass. All catheters, wires were withdrawn. Right femoral angiogram demonstrated good puncture in the right common femoral artery. The patient was transported to recovery room
where the sheath was withdrawn and manual pressure applied to the puncture site. Full hemostasis was achieved.
The patient tolerated procedure well.
== END 2025-04-30 15:20 | disposition home or self-care (01) ==
LOC: CATH 06:29
PROVIDERS: ATTENDING PHYSICIAN Surgery Vascular Surgery; OTHER PHYSICIAN Internal Medicine Cardiovascular Disease; PRIMARYCARE PHYSICIAN Family Medicine
DX: I70.244 Atherosclerosis of native arteries of left leg with ulceration of heel and midfoot (principal); L97.429 Non-pressure chronic ulcer of left heel and midfoot with unspecified severity; Z79.82 Long term (current) use of aspirin; Z79.899 Other long term (current) drug therapy; Z79.890 Hormone replacement therapy; I48.0 Paroxysmal atrial fibrillation
CPT/HCPCS: 36246; 75625; 75710; Q9967

== ENCOUNTER → 2025-05-06 06:59 | Outpatient (REF) | payer MEDICARE, OTHER, SELFPAY | LOC: RAD 06:59 | PROVIDERS: ATTENDING PHYSICIAN Surgery Vascular Surgery; FAMILY PHYSICIAN Family Medicine | DX: I73.9 Peripheral vascular disease, unspecified (principal) | CPT/HCPCS: 75635; Q9967 ==

== ENCOUNTER → 2025-05-09 09:20 | Outpatient (REF) | payer MEDICARE, OTHER, SELFPAY | LOC: RAD 09:20 | PROVIDERS: ATTENDING PHYSICIAN Surgery Vascular Surgery; FAMILY PHYSICIAN Family Medicine | DX: I73.9 Peripheral vascular disease, unspecified (principal); L97.429 Non-pressure chronic ulcer of left heel and midfoot with unspecified severity | CPT/HCPCS: 93970 ==

== ENCOUNTER 2025-06-16 07:41 | Inpatient (IN) | payer MEDICARE, OTHER, SELFPAY ==
[2025-06-12 09:40] VITALS: BMI 30.8
[2025-06-12 10:10] LABS: Hematocrit 38.9 % (39.0-52.0); Hemoglobin 13.0 g/dL (13.0-18.0); Mean Corp Hgb Conc. 33.4 g/dL (33.0-37.0); Mean Corpuscular Volume 89.2 fL (80.0-94.0); Nucleated Red Blood Cells % 0 % (-); Platelet Count 188 10^3/uL (130-400); Red Cell Dist. Width 14.0 % (11.5-14.5)
[2025-06-12 10:13] LABS: APTT 27.4 Sec (23.4-35.0); INR 0.94; PT 13.1 Sec (11.4-14.6)
[2025-06-12 10:21] LABS: Blood Urea Nitrogen 35 mg/dl (9-20); Calcium 9.5 mg/dl (8.4-10.2); Carbon Dioxide 26 mmol/L (22-30); Chloride 104 mmol/L (98-107); Estimated Creatinine Clearance 55 ml/min; Glucose 120 mg/dl (70-99); Potassium 4.9 mmol/L (3.5-5.1); Sodium 138 mmol/L (135-145); eGFR 56.23
[2025-06-16] VITALS (10 sets, daily range): BP systolic 94–129; BP diastolic 56–84; BMI 30.6
[2025-06-16] MEDS: PERIDEX 0.12% ORAL RINSE 15 ML PO (08:03)
[2025-06-16] MEDS: BACTROBAN NASAL 1 GRAM NASAL (08:04)
[2025-06-16] MEDS: NSS 290 IV (08:04)
--- NOTE | 2025-06-16 13:57 | W.SUR.POST ---
Surgical Immediate Post Op
Note
Pre Op Diagnosis: Peripheral arterial disease
Post Op Diagnosis: Peripheral arterial disease
Procedure Performed: Left lower extremity arterial bypass below knee popliteal to peroneal artery, contralateral nonreversed saphenous vein
Primary Surgeon: Garfield Jones MD
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
Anesthesia: GETA
Estimated Blood Loss: 40 ml
Fluids: See anesthesia flow sheet
Drains/Shunts: N/A
Specimens/Cultures: None
Doppler/Duplex/Angio (Y/N): Y, Doppler
Complications: None
Operative Findings: Successful arterial bypass with post operative with doppler DP and PT at left foot
--- NOTE | 2025-06-16 14:38 | OR.RPT ---
Operative Report
Operative Report
PROCEDURE DATE: 06/16/2025
Preoperative diagnosis: Chronic limb threatening ischemia left lower extremity with ischemic rest pain like symptoms, and nonhealing callus (prior ulceration) left foot.
Postoperative diagnosis: Same
Procedure: Left below the knee popliteal artery to peroneal artery bypass with contralateral reverse greater saphenous vein conduit
Surgeon: Robert
Director Of Residence Life: TAVON Fuentes, required for all aspects of procedure including assistance with traction/countertraction, following of suture line, assistance with closure.
Complications: None
Anesthesia: General
Indications for procedure:
Chronic left foot pain unremitting. Painful callus. Prior site of ulceration. Angiography and CT angiogram had confirmed significant peripheral arterial disease. Risk/benefits/alternatives of bypass fully discussed. Patient understood and
wished to proceed. Discussed initially [id number] popliteal to peroneal artery bypass. However when I rereviewed all the images, and noted good pulsatility on exam, his popliteal artery was not severely disease behind the knee. Therefore I
felt that below the knee inflow source would be ideal and would offer a shorter length bypass.
Description of procedure:
Patient was identified brought to the operating room placed on the table in supine position. After the adequate administration of anesthesia he was prepped and draped in the standard surgical fashion. A standard preoperative timeout was undertaken
and everybody was in agreement the plan. A longitudinal incision was made in the medial proximal left calf that was carried through skin subcutaneous tissue with the electrocautery. Crural fascia was divided with the electrocautery. I then
deepened my retraction after reflecting the gastrocnemius muscle posteriorly. And the loose areolar fatty tissue identified the popliteal vein and then reflected this posteriorly and just lateral to this I identified the popliteal artery. This was
carefully circumferentially dissected proximally and distally and passed Vesseloops around it proximally and distally. It was noted to be pulsatile, and was reasonably soft. I could palpate some plaque, but it was relatively soft.
Now I made a longitudinal incision in the mid calf. I had marked a length approximately 21 cm distal to the inferior aspect of the patella (based on my angiogram I had noted that that was the site where the peroneal artery was less diseased as the
artery did reconstitute more proximally, but then there is a diseased segment and then it seemed to get better). This was also carried through skin subcutaneous tissue. There is moderate edema fluid. There is moderate subcutaneous venous oozing
as well. This was all carefully controlled with the electrocautery. I then dissected through the crural fascia layer. I then transected the soleus muscle just inferior to its attachment on the tibia using electrocautery. I then entered the deep
posterior compartment. I was able to quickly identify the posterior tibial artery and vein. This was a heavily calcified artery and I could palpate easily. I stayed in a plane anterior to the popliteal artery and vein, and easily identified the
tibial nerve. I continued to dissect more laterally in the same plane. Crossing muscle branches of veins were ligated between silk ties and divided. I then finally was able to get more lateral but I had great difficulty finding the popliteal
artery and vein here. It was very deep in the anatomy proved to be a little bit challenging. Finally I was able to identify the peroneal vein. Once I did this I was able to identify the peroneal l artery although was fairly scarred to the tissues
around it. Therefore careful dissection was undertaken. Initially at the thigh off or clipped vein branches as there was moderate amount of oozing from these venous branches. Finally because the peroneal artery and vein were fairly stuck together
and there was resultant oozing/bleeding from it, I ended up ligating the peroneal vein proximally and distally with silk ties and then divided it. This allowed better exposure of the artery. Once I did this I now was able to better expose the
artery although it was still very tight and retraction was difficult here. Had to carefully dissect the anterior surface of the artery and then the medial and lateral surfaces as well. But again the artery was fairly stuck and proved to be very
challenging. Finally once I had mobilized a suitable length, I passed Vesseloops around approximately distally. In the more proximal segment I could still palpate calcified plaque which suggested that that was the area just before the artery
somewhat normalized. I listen with a Doppler and there is a good Doppler signal.
Next, I created an anatomic tunnel with the assistance of an aortic clamp between the peroneal artery exposure site in the below the knee popliteal artery exposure site. An umbilical tape was positioned in this space.
At this point I turned my attention to the right medial thigh and made a longitudinal incision there. This was to expose the greater saphenous vein. I carried the incision through the skin and subcutaneous tissue with the electrocautery and then
identified the greater saphenous vein. I then dissected it for suitable length. It was mobilized out of its bed by ligating any branches between silk ties and clips and then dividing them. Once I mobilized a suitable segment, I ligated it
distally and proximally with a heavy silk tie and a clip. I then transected it distally and proximally. I then distended the vein under heparinized saline. It distended reasonably well. It was slightly thickened/sclerotic but reasonably
distented. Based on no clear size mismatch, I elected to reverse the vein.
At this point the patient was given 7000's of intravenous heparin. Once this had circulated I clamped the popliteal artery below the knee and then tightened my Vesseloops which was double looped distally on the popliteal artery. I made an
arteriotomy with 11 blade and extended using a Barkley scissor. I then spatulated the vein (as noted above reversing the vein), and sewing an end-to-side anastomosis using a running 6-0 Prolene suture. I completed and tied down my suture line. Next
I released flow in the [place] artery. There is now good pulsatile flow into the vein graft. I marked the anterior surface under distention to avoid any kinking or twisting. I inspected the anastomosis and it appeared hemostatic. I then passed it
through the Pam created anatomic tunnel taking care to avoid any twisting or kinking. I confirmed good pulsatile flow once it was passed through the tunnel. I then placed a bulldog clamp on the vein graft in the proximal arterial exposure site.
I now double looped and tightened Vesseloops proximally and distally on the peroneal artery. I made an arteriotomy with a Howard blade and extended it using a Barkley scissor. The artery was severely calcified proximally and was nearly occluded with
significant plaque, but just beyond here the lumen was nicely patent and there is mild eccentric plaque in the artery wall. This was the area that correlated to the normalization of the artery appearance on the angiogram. Therefore, at this point
in order to gain better exposure when I sewed since I had to extend the arteriotomy slightly distally because of the heavy plaque more proximally, I instead of using vessel loop placed a Yasargil clip distally to occlude the artery. The. Now I
trimmed and spatulated the vein graft. I then sewed an end-to-side anastomosis using a running 7-0 Prolene suture. This proved to be very challenging based on the anatomy and the positioning. However I was able to do so reasonably well. Prior to
completing and tying down my suture line I backbled the [place] arteries which backbled well. I then flushed out the vein graft. I then flushed heparinized saline. I then completed and tied down my suture line. Now I released the proximal
peroneal artery vessel loop. There was a single bleeder on the suture line which was repaired with a 7-0 Prolene [id number] suture. I then released the bulldog clamp on the vein graft. Finally I released the outflow Yasargil clip on the
peroneal artery. There is now pulsatile flow in the vein graft. There is pulsatile flow in the peroneal artery distally anastomosis. Doppler confirmed a significantly graft augmented phasic Doppler signal in the peroneal artery distal to the
anastomosis. Similarly there is an excellent phasic Doppler signal at the dorsalis pedis on the foot as well (this was the reconstituted dominant runoff vessel, reconstituted from peroneal based on angiogram). At this point I was very satisfied.
An additional single 7-0 Prolene suture was placed on the suture line at the distal anastomosis. Hemostasis was then noted. I gave protamine to reverse the heparin. I irrigated all incision sites. We confirmed full hemostasis. The arterial
exposure sites were then closed in layers using 2-0 Vicryl followed by 3-0 Vicryl, followed by skin clips. The saphenectomy site was similarly closed with 2-0 Vicryl, followed by 3-0 Vicryl, followed by skin clips. Dressings were applied. The
patient tolerated the procedure well. All sponge, needle, instrument counts were correct at the end of the case. The patient was transported to recovery room in stable condition.
[2025-06-16 14:44] LABS: Hematocrit 35.4 % (39.0-52.0); Hemoglobin 12.1 g/dL (13.0-18.0); Mean Corp Hgb Conc. 34.2 g/dL (33.0-37.0); Mean Corpuscular Volume 87.4 fL (80.0-94.0); Platelet Count 167 10^3/uL (130-400); Red Cell Dist. Width 13.7 % (11.5-14.5)
[2025-06-16 14:57] LABS: Blood Urea Nitrogen 22 mg/dl (9-20); Calcium 8.7 mg/dl (8.4-10.2); Carbon Dioxide 22 mmol/L (22-30); Chloride 107 mmol/L (98-107); Estimated Creatinine Clearance 79 ml/min; Glucose 154 mg/dl (70-99); Potassium 4.4 mmol/L (3.5-5.1); Sodium 136 mmol/L (135-145); eGFR > 60.00
--- NOTE | 2025-06-16 15:00 | PTCARENOTE ---
Patient arrived from PACU on NRB per anesthesia O2 protocol. Patient placed on monitor. IV fluids started per ordered rate. Neurovascular checks completed with PACU nurse. Temp sensing Norman in place. Denies pain at this time. Resting comfortably in
bed.
--- NOTE | 2025-06-16 15:29 | CON.INTV ---
Consultation
Consultation Request
Date/Time Consultation Requested: 06/16/2025
Date/Time Consultation Performed: 06/16/2025
Medical History
-
Chief Complaint: Limb ischemia
History of Present Illness:
Patient is a very pleasant 79-year-old gentleman with known history of dermatomyositis, mild ILD, coronary artery disease and aortic valve stenosis status post CABG and aortic valve replacement with a bioprosthesis, who presented to the hospital for
elective lower extremity revascularization. Patient has known history of peripheral vascular disease and follows up with vascular surgery services outpatient. He was admitted for elective below-knee popliteal to peroneal bypass surgery.
Postprocedure, patient was admitted to ICU for close neurovascular bundle monitoring and assistant production manager consultation was requested for further input.
Past Medical History
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
hypothyroidism, dermatomyositis, Right THR)
Past Surgical History: Reports Other (see above )
Social History
Tobacco: Non-smoker
Alcohol: Occasional
Family History
Family History: Not pertinent
Allergies / Home Medications
Allergies / Home Medications
Allergies
Allergy/AdvReac Type Severity Reaction Status Date / Time
No Known Allergies Allergy Verified 06/16/25 08:05
Home Medications
�Medication �Instructions �Recorded �Confirmed �Last Taken �Type
levothyroxine 25 mcg tablet 12.5 mcg PO DAILY Thyroid 06/04/20 06/16/25 06/16/25 07:00 History
atorvastatin 40 mg tablet 40 mg PO QPM #90 tabs 04/19/24 06/16/25 06/15/25 18:00 Rx
aspirin 81 mg tablet,delayed 81 mg PO DAILY Blood Clot 04/29/24 06/16/25 06/16/25 07:00 History
release Prevention/Tx
cholecalciferol (vitamin D3) 125 125 mcg PO DAILY Supplement 04/29/24 06/16/25 06/15/25 08:00 History
mcg (5,000 unit) tablet (Vitamin
D3)
metoprolol succinate 25 mg 25 mg PO DAILY Blood Pressure 05/14/24 06/16/25 06/16/25 07:00 History
tablet,extended release 24 hr
melatonin 1 mg/mL oral liquid 1 mg PO HSPRN PRN sleep 07/11/24 06/16/25 06/15/25 21:00 History
Beberine 1 tab PO DAILY Supplement 06/16/25 06/16/25 06/14/25 07:00 History
Elderberry 1 cap PO DAILY Supplement 06/16/25 06/16/25 06/14/25 07:00 History
K2, D3 1 tab PO DAILY Supplement 06/16/25 06/16/25 06/14/25 07:00 History
[place] Q Plus Max 1 cap PO DAILY Supplement 06/16/25 06/16/25 06/14/25 07:00 History
ashwagandha extract 500 mg capsule 500 mg PO DAILY Supplement 06/16/25 06/16/25 06/14/25 07:00 History
pnndfta-rcmpcjzei-jrsk tablet 1 tab PO DAILY Supplement 06/16/25 06/16/25 06/14/25 07:00 History
ibuprofen 200 mg tablet (Advil) 400 mg PO Q6H PRN leg pain 06/16/25 06/16/25 06/14/25 16:00 History
multivitamin 1 tab PO DAILY Supplement 06/16/25 06/16/25 06/14/25 08:00 History
Review of Systems
-
Hematologic/Lymphatic: Other (All 14 systems reviewed and negative except as stated above in the history of present illness.)
Vitals / Labs / Diagnostic Testing
Vital Signs
Temp Pulse Resp BP Pulse Ox
98.3 F 76 18 103/71 95
06/16/25 15:20 06/16/25 14:51 06/16/25 14:51 06/16/25 14:51 06/16/25 14:51
Lab Data
06/16/25 14:30
06/16/25 14:30
Diagnostic Testing:
Physical Exam
-
HEENT: Normocephalic
Cardiovascular: S1/S2
Respiratory: Clear
GI: Soft and Non Distended
Neurology: Awake and Alert
Skin: Warm
General: Comfortable
Assessment
-
Patient is a 79-year-old male with a history of peripheral vascular disease s/p left lower extremity arterial bypass below knee popliteal to peroneal artery with contralateral nonreversed saphenous vein, by vascular surgery service, POD #0
Continue observation following procedure
Follow neurovascular checks per protocol. Foot warm on exam, appears well perfused.
ASA, metoprolol and atorvastatin on board.
Follow BP monitoring and parameters as set by primary team
Cardiac history reviewed
Monitor on telemetry
Pain control per protocol
RASS goal 0
Known h/i Mild ILD with underlying Dermatomyositis and Raynaud's Disease
CXR reviewed indicating no acute disease
Prior PFTs reviewed
Encouraged IS
Diet advancement per protocol
Aspiration precautions
GI prophylaxis: Protonix
Cr at baseline, follow UO
Critical I/Os
Void trials
Replete electrolytes as needed
No signs/symptoms suspicious for infectious etiology at this time
Will observe off antibiotics for now
Follow temperatures/CBC
Hb and platelets postoperatively stable
DVT prophylaxis: Subcu heparin.
Other medical diagnoses:
- CAD, s/p CABG (04/2024)
- Paroxysmal A Fib, patient declined anticoagulation per cardiology clinic note
- Aortic stenosis, s/p Bioprosthetic AVR (04/2024)
- HLD
- Dermatomyositis with mild stable ILD, follows up with [facility]ology at [facility]. Has been off Cellcept for about 4 months now.
- Mild restrictive lung disease, stable over the years
- Raynaud's disease
- Hypothyroidism
- NPH, s/p DIRECTOR OF SUSTAINABILITY PROGRAMS shunt
Patient follows up with [facility] pulmonary clinic with Dr. Bishop, will resume follow-up postdischarge.
Critical Care time [62] mins -- The patient is admitted for acute critical illness for the treatment of vital organ failure and/or prevention of further life-threatening conditions. Total care includes time spent in review of history, physical exam,
medications, hemodynamic/ventilator parameters, laboratory data, imaging and discussion with house staff, pharmacy, respiratory therapy, real estate development manager, and nursing
Data:
CXR 05/2025: No acute cardiopulmonary process.
PFT 10/10/23: FVC 3.16/75%, FEV1 1.89/62%, ratio 62. TLC 4.87/67%, DLCO 17.02/65%. Moderate obstruction, mild restriction with mild gas exchange defect
ECHO 07/2024: Normal biventricular size and systolic function without regional wall motion abnormality.
Well seated bioprosthetic aortic valve without regurgitation.
Compared to previous echo 03/26/2024, the aortic valve has been replaced.
C 04/2024: 1:�Moderate to severe aortic stenosis with mean gradient 36 mmHg
2:�Hyperdynamic left ventricular wall motion with EF 71%
3. Severe calcific multivessel CAD including left main coronary artery disease as described above
4. Recommend evaluation for CABG/AVR with optimal grafting to include D1, D2 if possible, OM1, RPDA, and RPL 2 bypass grafts
[2025-06-16] MEDS: HEPARIN 5000 UNITS SC (16:03)
[2025-06-16] MEDS: NSS 1000 IV (16:03)
[2025-06-16 16:05] LABS: Glucose - Point of Care 149 mg/dl (70-99)
[2025-06-16] MEDS: LIPITOR 40 MG PO (17:01)
--- NOTE | 2025-06-16 17:08 | PTCARENOTE ---
Patient removed from simple face mask at 4:15pm to room air. Patient then noted to be desating at 4:56pm and placed on 2L NC.
--- NOTE | 2025-06-16 22:55 | PTCARENOTE ---
Pt received start of shift, HR SR on telemetry. Pt AAOx4, ANDERSON. IVF infusing as ordered. B/l DP and PT pulses present with doppler. LLE warm. Pt denies any pain at operation site. Norman care provided. 2L NC removed per pt request, POX 93% RA. Norman
draining clear yellow urine. L radial a-line zeroed.
[2025-06-17] VITALS (16 sets, daily range): BP systolic 91–128; BP diastolic 41–68; BMI 30.5
[2025-06-17] MEDS: HEPARIN 5000 UNITS SC ×3 (00:02→15:52)
--- NOTE | 2025-06-17 02:18 | PTCARENOTE ---
Pt reassessed, slightly more sanguineous drainage on R thigh aquacel. No further changes in assessment.
[2025-06-17] MEDS: NSS 1000 IV (03:45)
[2025-06-17 03:55] LABS: Hematocrit 31.5 % (39.0-52.0); Hemoglobin 10.8 g/dL (13.0-18.0); Mean Corp Hgb Conc. 34.3 g/dL (33.0-37.0); Mean Corpuscular Volume 86.1 fL (80.0-94.0); Platelet Count 160 10^3/uL (130-400); Red Cell Dist. Width 13.8 % (11.5-14.5)
[2025-06-17 04:19] LABS: Blood Urea Nitrogen 21 mg/dl (9-20); Calcium 9.0 mg/dl (8.4-10.2); Carbon Dioxide 23 mmol/L (22-30); Chloride 109 mmol/L (98-107); Estimated Creatinine Clearance 79 ml/min; Glucose 124 mg/dl (70-99); Potassium 4.2 mmol/L (3.5-5.1); Sodium 138 mmol/L (135-145); eGFR > 60.00
[2025-06-17 04:23] LABS: INR 1.04; PT 13.9 Sec (11.4-14.6)
[2025-06-17 04:24] LABS: APTT 27.9 Sec (23.4-35.0)
[2025-06-17] MEDS: TYLENOL 650 MG PO ×2 (05:15→22:02)
[2025-06-17] MEDS: SYNTHROID 12.5 MCG PO (05:15)
--- NOTE | 2025-06-17 06:30 | PTCARENOTE ---
Pt reassessed. B/l DP and PT pulses remain present with doppler. Sensation equal b/l LE, pt states no changes.
--- NOTE | 2025-06-17 07:11 | W.PN.VS ---
Today's Communication / Plan
-
See plan below for today 06/17/2025.
Assessment/Plan
-
Postoperative day #1 status post left below the knee popliteal to peroneal artery bypass with contralateral reverse saphenous vein conduit.
� Discontinue arterial line.
� Discontinue Norman catheter.
� Hep-Lock IV fluids.
� Regular diet.
� Out of bed to chair.
� Likely stable for transfer to telemetry this afternoon.
-
Total Time Spent with Patient (in minutes): 10
Subjective Data
-
Date of Service: June 17, 2025
Patient without specific complaints this morning. No significant pain at rest.
Objective Data
-
Vital Signs
Temp Pulse Resp BP Pulse Ox
99.4 F 76 17 114/57 97
06/17/25 03:14 06/17/25 05:30 06/17/25 05:30 06/17/25 05:22 06/17/25 05:30
Intake and Output
06/16/25 06/17/25 06/18/25
06:59 06:59 06:59
Intake Total 1770 / 1770
Output Total 2495 / 2495
Balance -725 / -725
Intake:
Oral fluids 480 / 480
IV fluids (Total) 1290 / 1290
NSS 1240 / 1240
normosol 50 / 50
Output:
Urine, Norman 2495 / 2495
Lab Results
06/17/25 03:40
06/17/25 03:40
Calcium 9.0 mg/dl (8.4-10.2) 06/17/25 03:40
Physical Exam
-
Afebrile.
Awake and alert.
Bilateral lower extremity thighs and calves are soft. Dressings clean dry and intact.
Left foot warm with excellent dopplerable DP signal.
Labs reviewed.
[2025-06-17] MEDS: ASPIR LOW (ENTERIC COATED) 81 MG PO (07:33)
[2025-06-17] MEDS: PROTONIX 40 MG PO (07:33)
[2025-06-17] MEDS: TOPROL XL 25 MG PO (07:33)
[2025-06-17] MEDS: VITAMIN D3 (cholecalciferol) 125 MCG PO (07:33)
[2025-06-17] MEDS: THERAGRAN 1 TABLET PO (07:33)
--- NOTE | 2025-06-17 08:00 | PTCARENOTE ---
Assumed care of patient in stable condition. Neurovascular checks performed with outgoing nurse, all pulses present with doppler. Patient has no complaints of pain at this time. Patient is aox3, davis, fc. Temperature is 99.2 for which he was given
Tylenol by the camp maintenance supervisor nurse. Patient is in NSR with rates in the 70s, BP stable. Patient is on room air, lungs CTA. Instructed on use of IS. GI assessment benign. Patient's Norman removed per order and condom catheter placed. A-line removed,
pressure held, pressure dressing intact.
[2025-06-17] MEDS: ROXICODONE 5 MG PO ×2 (09:59→14:15)
--- NOTE | 2025-06-17 10:57 | CM ---
Initial assessment completed with patient who lives with his in a 2 story plus basement home with B/B on 2nd, 1/2 bath on , 5 steps to enter. 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 Has a SPC and RW in the home. Has
been using the SPC recently due to PAD and weakness in LLE. No in-home services. Does have a HC-POA. Was in the [employer] and has VA benefits. No psychiatric hospitalizations. PCP is Dr. Max Barnett. Pharmacy is [facility] in [place]. Discharge POC:
Anticipate home with no needs. Patient has declined HH RN.
--- NOTE | 2025-06-17 12:00 | PTCARENOTE ---
Patient is resting comfortably in bed with legs elevated in recliner and pillow under heels. Pain is adequately controlled per patient report. Q1 neurovascular checks with adequate doppler pulses in DP and PT. Patient voided 175 of urine plus two
episodes with condom catheter leaking.
--- NOTE | 2025-06-17 12:13 | W.PN.INTV ---
Today's Communication / Plan
Recommendations
- Jr. Java Developer service will sign off once patient is transferred out of ICU
- Outpatient follow-up with [facility] pulmonary clinic for ILD
Assessment
-
Patient is a 79-year-old male with a history of peripheral vascular disease s/p left lower extremity arterial bypass below knee popliteal to peroneal artery with contralateral nonreversed saphenous vein, by vascular surgery service, POD #1
Continue observation following procedure
Follow neurovascular checks per protocol. Foot warm on exam, appears well perfused.
ASA, metoprolol and atorvastatin on board.
Follow BP monitoring and parameters as set by primary team
Cardiac history reviewed
Monitor on telemetry
Pain control per protocol
RASS goal 0
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
CXR reviewed indicating no acute disease
Prior PFTs reviewed
Encouraged IS
Diet advancement per protocol
Aspiration precautions
GI prophylaxis: Protonix
Cr at baseline, follow UO
Critical I/Os
Void trials
Replete electrolytes as needed
No signs/symptoms suspicious for infectious etiology at this time
Will observe off antibiotics for now
Follow temperatures/CBC
Hb and platelets postoperatively stable, mild drift noted
DVT prophylaxis: Subcu heparin.
Other medical diagnoses:
- CAD, s/p CABG (04/2024)
- Paroxysmal A Fib, patient declined anticoagulation per cardiology clinic note
- Aortic stenosis, s/p Bioprosthetic AVR (04/2024)
- HLD
- Dermatomyositis with mild stable ILD, follows up with Rheumatology at [facility]. Has been off Cellcept for about 4 months now.
- Mild restrictive lung disease, stable over the years. Not on any active treatment now.
- Raynaud's disease
- Hypothyroidism
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
Patient follows up with [facility] pulmonary clinic with Dr. Bishop, will resume follow-up postdischarge.
Critical Care time [42] mins -- The patient is admitted for acute critical illness for the treatment of vital organ failure and/or prevention of further life-threatening conditions. Total care includes time spent in review of history, physical exam,
medications, hemodynamic/ventilator parameters, laboratory data, imaging and discussion with house staff, pharmacy, respiratory therapy, franchise business consultant, and nursing
Data:
CXR 05/2025: No acute cardiopulmonary process.
PFT 10/10/23: FVC 3.16/75%, FEV1 1.89/62%, ratio 62. TLC 4.87/67%, DLCO 17.02/65%. Moderate obstruction, mild restriction with mild gas exchange defect
ECHO 07/2024: Normal biventricular size and systolic function without regional wall motion abnormality.
Well seated bioprosthetic aortic valve without regurgitation.
Compared to previous echo 03/26/2024, the aortic valve has been replaced.
LHC 04/2024: 1:�Moderate to severe aortic stenosis with mean gradient 36 mmHg
2:�Hyperdynamic left ventricular wall motion with EF 71%
3. Severe calcific multivessel CAD including left main coronary artery disease as described above
4. Recommend evaluation for CABG/AVR with optimal grafting to include D1, D2 if possible, OM1, RPDA, and RPL 2 bypass grafts
Subjective Dataa
Subjective Data
Date of Service:
Date of Service: June 17, 2025
Subjective:
Patient comfortably lying in bed in no acute distress.
Review of Systems
Genitourinary: Other (All 14 systems reviewed and negative except as stated above in the history of present illness.)
Objective Data
Data Reviewed
Vital Signs / I&O / Oxygen:
Vital Signs
Temp Pulse Resp BP Pulse Ox
98.4 F 74 22 112/61 94
06/17/25 11:25 06/17/25 09:15 06/17/25 09:15 06/17/25 09:00 06/17/25 09:15
Intake and Output
06/16/25 06/17/25 06/18/25
06:59 06:59 06:59
Intake Total 1770 / 1850 80 / 80
Output Total 2495 / 2605 385 / 385
Balance -725 / -755 -305 / -305
SaO2 94
Nasal Cannula flow liters per 10
minute
Physical Exam
General: Comfortable
HEENT: Normocephalic
Cardiovascular: S1-S2
Respiratory: Clear and Non-Labored Respirations
GI: Soft and Non Distended
Neurology: Awake and Alert
Skin: Warm
Labs/Micro/Reports
Lab Data
06/17/25 03:40
06/17/25 03:40
Laboratory Results
06/17/25
03:40
PT 13.9
INR 1.04
APTT 27.9
[2025-06-17] MEDS: DILAUDID 0.5 MG IV (17:07)
[2025-06-17] MEDS: LIPITOR 40 MG PO (17:07)
[2025-06-17] MEDS: MELATONIN 5 MG PO (22:02)
[2025-06-18] VITALS (7 sets, daily range): BP systolic 98–137; BP diastolic 50–66; PULSE 69; O2SAT 97
[2025-06-18] MEDS: HEPARIN 5000 UNITS SC ×3 (01:16→17:08)
[2025-06-18] MEDS: SYNTHROID 12.5 MCG PO (06:04)
[2025-06-18] MEDS: TYLENOL 650 MG PO ×4 (06:06→21:13)
[2025-06-18 06:53] LABS: Hematocrit 31.7 % (39.0-52.0); Hemoglobin 10.6 g/dL (13.0-18.0); Mean Corp Hgb Conc. 33.4 g/dL (33.0-37.0); Mean Corpuscular Volume 88.5 fL (80.0-94.0); Platelet Count 153 10^3/uL (130-400); Red Cell Dist. Width 13.9 % (11.5-14.5)
[2025-06-18 07:05] LABS: Blood Urea Nitrogen 21 mg/dl (9-20); Calcium 8.7 mg/dl (8.4-10.2); Carbon Dioxide 26 mmol/L (22-30); Chloride 106 mmol/L (98-107); Estimated Creatinine Clearance 71 ml/min; Glucose 136 mg/dl (70-99); Potassium 4.1 mmol/L (3.5-5.1); Sodium 138 mmol/L (135-145); eGFR > 60.00
--- NOTE | 2025-06-18 07:41 | W.PN.VS ---
Addendum entered and electronically signed by Garfield Jones MD 06/18/25 07:52:
Seen and examined with TAVON Catherine. Agree with findings as noted below. Patient without significant plaints. Right lower extremity incision is clean dry and intact. Thigh is soft. No hematoma. Left calf dressings are clean dry and intact (changed
yesterday). No hematoma noted in the calf. Foot is warm. I am able to actually palpate a DP pulse (reconstituted from peroneal collaterals).
Plan/as discussed and noted below.
Original Note:
Today's Communication / Plan
-
Patient seen and examined at bedside with Dr. Garfield Jones M.D., below plan reviewed with attending.
Assessment/Plan
-
Postoperative day #2 status post left below the knee popliteal to peroneal artery bypass with contralateral reverse saphenous vein conduit.
� PT eval and treat
- Continue DVT prophylaxis
- Continue to encourage incentive spirometry
- Continue neurovascular checks
Subjective Data
-
Date of Service: June 18, 2025
Patient with no complaints, reports well-managed postoperative pain. Denies nausea, vomiting, fever, and chills. Tolerating p.o. diet. Reports that he was able to ambulate from bed to chair and spent most of the day in his chair without
difficulty.
Objective Data
-
Vital Signs
Temp Pulse Resp BP Pulse Ox
99.4 F 82 18 118/50 98
06/18/25 03:05 06/18/25 03:05 06/18/25 03:05 06/18/25 03:05 06/18/25 03:05
Intake and Output
06/17/25 06/18/25 06/19/25
06:59 06:59 06:59
Intake Total 1770 / 1850 80 / 80
Output Total 2495 / 2605 1010 / 1010
Balance -725 / -755 -930 / -930
Intake:
Oral fluids 480 / 480
IV fluids (Total) 1290 / 1370 80 / 80
NSS 1240 / 1320 80 / 80
normosol 50 / 50
Output:
Urine, [place] 2495 / 2495
Urine, Voided 1010 / 1010
Lab Results
06/18/25 06:01
06/18/25 06:01
Calcium 8.7 mg/dl (8.4-10.2) 06/18/25 06:01
Physical Exam
-
Afebrile.
Awake and alert.
Bilateral lower extremity thighs and calves are soft. Left lower extremity dressings clean dry and intact. Ramon intact
Left foot warm with with +1 palpable DP pulse
Right lower extremity saphenectomy surgical site dressing removed, mone well-approximated
[2025-06-18] MEDS: THERAGRAN 1 TABLET PO (08:07)
[2025-06-18] MEDS: PROTONIX 40 MG PO (08:07)
[2025-06-18] MEDS: TOPROL XL 25 MG PO (08:07)
[2025-06-18] MEDS: ASPIR LOW (ENTERIC COATED) 81 MG PO (08:07)
[2025-06-18] MEDS: VITAMIN D3 (cholecalciferol) 125 MCG PO (08:07)
--- NOTE | 2025-06-18 12:25 | CM ---
CM following re: discharge planning.
Reviewed pt's chart, met with pt.
Pt is Postoperative day #2 status post left below the knee popliteal to peroneal artery bypass with contralateral reverse saphenous vein conduit. Continue supportive care.
PT evaluation pending.
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
D/c plan: home with anticipated no needs.
CM will follow with discharge plan updates as hospitalization progresses
[2025-06-18] MEDS: LIPITOR 40 MG PO (17:08)
[2025-06-18] MEDS: MELATONIN 3 MG PO (21:14)
[2025-06-18] MEDS: ROXICODONE 5 MG PO (22:39)
[2025-06-19] MEDS: HEPARIN 5000 UNITS SC ×2 (00:34→08:33)
[2025-06-19 03:00] VITALS: BP 103/65
[2025-06-19] MEDS: SYNTHROID 12.5 MCG PO (06:01)
[2025-06-19] MEDS: TYLENOL 650 MG PO (06:15)
[2025-06-19 07:05] VITALS: BP 104/67
--- NOTE | 2025-06-19 07:30 | W.PN.VS ---
Addendum entered and electronically signed by Garfield Jones MD 06/19/25 09:32:
Seen and examined with TAVON Catherine. Agree with findings as noted below. Left lower extremity incisions all clean dry and intact. No hematoma. Right lower extremity thigh incision clean dry and intact. No hematoma. Left foot is warm. Unable to
palpate DP pulse (reconstituted from peroneal collaterals).
Plan/as discussed and noted below. Good graft function.
Original Note:
Today's Communication / Plan
-
Patient seen and examined at bedside with Dr. Garfield Jones M.D., below plan reviewed with attending.
Assessment/Plan
-
Postoperative day #3 status post left below the knee popliteal to peroneal artery bypass with contralateral reverse saphenous vein conduit.
� PT eval and treat, will ask physical therapy to work with patient with steps prior to discharge
- Continue DVT prophylaxis
- Continue to encourage incentive spirometry
- Continue neurovascular checks
- Possible discharge later today
- Can leave all staple sites open to air
Subjective Data
-
Date of Service: June 19, 2025
Patient seen and examined at bedside, offers no complaints. Reports eagerness for discharge home. Endorses that he worked well with PT and was able to walk. He does note that he has 1 floor of steps in order to get to his bedroom at his house and
would feel comfortable attempting steps prior to discharge. Denies nausea, vomiting, fever, and chills. Tolerating p.o. diet.
Objective Data
-
Vital Signs
Temp Pulse Resp BP Pulse Ox
98.1 F 76 20 103/65 98
06/19/25 03:00 06/19/25 03:00 06/19/25 03:00 06/19/25 03:00 06/19/25 03:00
Intake and Output
06/18/25 06/19/25 06/20/25
06:59 06:59 06:59
Intake Total 80 / 80
Output Total 1010 / 1010 1809 / 1809
Balance -930 / -930 -1093 / -1093
Intake:
Oral fluids
IV fluids (Total) 80 / 80
NSS 80 / 80
Output:
Urine, Voided 1010 / 1010 1809 / 1809
Other:
Number of approximated LARGE 1
amounts of urine
Lab Results
06/18/25 06:01
06/18/25 06:01
Calcium 8.7 mg/dl (8.4-10.2) 06/18/25 06:01
Physical Exam
-
Afebrile.
Awake and alert.
Bilateral lower extremity thighs and calves are soft. Left lower extremity dressings clean dry and intact. Ramon intact, all dressings removed. Left staple sites clean, dry, and intact and well-approximated.
Left foot warm with with +1 palpable DP pulse
Right lower extremity saphenectomy surgical site clean, dry, and intact and mone well-approximated
[2025-06-19] MEDS: ASPIR LOW (ENTERIC COATED) 81 MG PO (08:32)
[2025-06-19] MEDS: PROTONIX 40 MG PO (08:33)
[2025-06-19] MEDS: VITAMIN D3 (cholecalciferol) 125 MCG PO (08:33)
[2025-06-19] MEDS: THERAGRAN 1 TABLET PO (08:34)
[2025-06-19] MEDS: TOPROL XL 25 MG PO (08:34)
[2025-06-19 09:12] VITALS: BP 96/64; PULSE 75; O2SAT 92
--- NOTE | 2025-06-19 09:25 | W.[place]-PDMP ---
[place]PD[place]
-
Checked the [place]- Prescription Drug Monitoring Program website, no red flags identified; safe to proceed with prescription.
--- NOTE | 2025-06-19 09:25 | W.DS.TRANS ---
DC Summary - [employer]
-
Discharge Instructions:
Discharge Diagnosis/Procedures Left below the knee popliteal artery to peroneal
artery bypass with contralateral reverse
greater saphenous vein conduit
Diet As tolerated
Activity No strenuous activity
Driving Restrictions Not until seen by your Dr
Bathing Restrictions OK to Shower
Other Services VN
Wound Care You may leave mone sites open to air, if you
experience scant drainage you can place 4x4
gauze pad secured with paper tape over area of
drainage to protect clothes. If you place gauze
change daily or as needed if soiled. If drainage
increases, changes color, and/or mone become
red or warm please call our office.
Instructions:
Stand-Alone Forms: Vascular Surg Discharge Instr
Changes to Home Medications: Yes
Discharge Medications:
DC Medications w/original date entered in [employer]
levothyroxine 25 mcg tablet 12.5 mcg PO DAILY Thyroid 06/04/20
atorvastatin 40 mg tablet 40 mg PO QPM #90 tabs 04/19/24
aspirin 81 mg tablet,delayed release 81 mg PO DAILY Blood Clot Prevention/Tx 04/29/24
cholecalciferol (vitamin D3) 125 mcg (5,000 unit) tablet (Vitamin D3) 125 mcg PO DAILY Supplement 04/29/24
metoprolol succinate 25 mg tablet,extended release 24 hr 25 mg PO DAILY Blood Pressure 05/14/24
melatonin 1 mg/mL oral liquid 1 mg PO HSPRN PRN sleep 07/11/24
Beberine 1 tab PO DAILY Supplement 06/16/25
Elderberry 1 cap PO DAILY Supplement 06/16/25
K2, D3 1 tab PO DAILY Supplement 06/16/25
[place] Q Plus Max 1 cap PO DAILY Supplement 06/16/25
ashwagandha extract 500 mg capsule 500 mg PO DAILY Supplement 06/16/25
awonrvy-xknbqligt-vfna tablet 1 tab PO DAILY Supplement 06/16/25
ibuprofen 200 mg tablet (Advil) 400 mg PO Q6H PRN leg pain 06/16/25
Held on 06/19/25. Instructions: Resume on 06/26/25.
multivitamin 1 tab PO DAILY Supplement 06/16/25
oxycodone 5 mg tablet 5 mg PO Q4HPRN PRN moderate pain #10 tabs 06/19/25
Home Medication Changes
Held:
ibuprofen 200 mg tablet (Advil) 400 mg PO Q6H PRN leg pain 06/16/25
Held on 06/19/25. Instructions: Resume on 06/26/25.
PRN:
oxycodone 5 mg tablet 5 mg PO Q4HPRN PRN moderate pain #10 tabs 06/19/25
Pending Results: No
--- NOTE | 2025-06-19 10:08 | W.PN.UPDATE ---
Update Note
Progress Note Update
Per case management patient has refused home health.
--- NOTE | 2025-06-19 10:45 | CM ---
Patient has been medically cleared for discharge to home with no additional skilled services. Patient was recommended for HH PT/OT but patient declined. He said he has equipment at home that he uses daily. He also declined HH RN. will
transport home.
[2025-06-19 11:00] VITALS: BP 96/58
== END 2025-06-19 13:25 | disposition home or self-care (01) | DRG 253 ==
LOC: 2 SOUTH 07:41
PROVIDERS: Nurse Practitioner; ADMITTING PHYSICIAN Surgery Vascular Surgery; CONSULT PHYSICIAN Internal Medicine; PRIMARYCARE PHYSICIAN Family Medicine
PROC: 041 Lower Arteries, Bypass (ICD-10-PCS; 2025-06-16)
PROC: 06BP0ZZ Excision of Right Saphenous Vein, Open Approach (ICD-10-PCS; 2025-06-16)
DX: I70.222 Atherosclerosis of native arteries of extremities with rest pain, left leg (principal); G91.2 (Idiopathic) normal pressure hydrocephalus; M33.13 Other dermatomyositis without myopathy; J84.9 Interstitial pulmonary disease, unspecified; L84 Corns and callosities; Z98.2 Presence of cerebrospinal fluid drainage device; I73.00 Raynaud's syndrome without gangrene; E03.9 Hypothyroidism, unspecified; Z95.1 Presence of aortocoronary bypass graft; I25.10 Atherosclerotic heart disease of native coronary artery without angina pectoris; I48.0 Paroxysmal atrial fibrillation; E78.5 Hyperlipidemia, unspecified; G89.29 Other chronic pain; I10 Essential (primary) hypertension; Z79.82 Long term (current) use of aspirin; Z86.14 Personal history of Methicillin resistant Staphylococcus aureus infection; Z86.73 Personal history of transient ischemic attack (TIA), and cerebral infarction without residual deficits; Z95.3 Presence of xenogenic heart valve
CPT/HCPCS: 35571; 36415; 71045; 71046; 80048; 82962; 85025; 85027; 85610; 85730; 86850; 86900; 86901; 87070; 93005; 97116; 97162; 97530

== ENCOUNTER 2025-06-21 13:06 | Emergency (ER) | payer MEDICARE, OTHER, SELFPAY ==
[2025-06-21 13:15] VITALS: BP 147/78
--- NOTE | 2025-06-21 13:48 | ED.GENMED ---
History of Present Illness
General
Chief Complaint: Post Operative Problem(s)
Source: patient
Exam Limitations: none
Time Seen by Provider: 06/21/25 13:24
History of Present Illness
History of Present Illness:
Patient with a left below the knee popliteal to peroneal bypass with contralateral saphenous vein conduit on June 16. Was doing well. Concerned with some increased swelling to the left leg and some erythema around the mone and around the
incision on the left. No systemic symptoms. No fever or chills. No distal numbness tingling or weakness.
Past History
Past History
ED Past Medical History: CAD, Valvular disease (aortic stenosis), Hypothyroidism and Other (dermatomyositis, normal pressure hydrocephalus)
ED Past Surgical History: Orthopedic (Right total hip replacement) and Other (Vascular surgery)
Social History
Tobacco: Non-smoker
Alcohol: None
Drug: None
Personal:
Living: with family
Employment: Employed
Family History
Family History: Other (Noncontributory)
Review of Systems
Review of Systems
All Other Systems: Not applicable
Constitutional: Denies fever
Phy Exam
Physical Exam
Physical Exam:
GENERAL: Alert and oriented in no apparent distress
CARDIAC: Regular rate and rhythm
LUNGS: No respiratory distress
NEUROLOGICAL: Alert and oriented , grossly non-focal
SKIN: Warm and dry, chronic hyperpigmentation changes to both lower extremities. Postsurgical staple site to the right medial thigh with minimal inflammatory changes at the site. No drainage no fluctuance. Left lower staple incision also has some
mild inflammatory changes and a small amount of crusting inferiorly
MUSCULOSKELETAL: Moderate edema to the left lower extremity. Some shininess to the skin. Doppler posterior tibial and dorsalis pedis pulses present. Left foot is warm. Good capillary refill. Moderate swelling to the left foot
PSYCH: Normal and appropriate interaction.
Course
Orders/Labs/Results
Orders:
Orders
06/21/25 13:41
US Periph Venous LOWER Ext [place] Urgent
Comment:
Reason For Exam: Recent vascular surgery/swelling
06/21/25 16:24
Doxycycline [Vibramycin] 100 mg PO NOW STA
Vital Signs
Initial and Last Documented VS:
Initial Vital Signs
Temp Pulse Resp BP Pulse Ox
98.2 F 77 16 147/78 98
06/21/25 13:15 06/21/25 13:15 06/21/25 13:15 06/21/25 13:15 06/21/25 13:15
Last Documented Vital Signs
Temp Pulse Resp BP Pulse Ox
98.2 F 77 16 147/78 98
06/21/25 13:15 06/21/25 13:15 06/21/25 13:15 06/21/25 13:15 06/21/25 13:50
*Radiology
Radiology exam reviewed: radiology read reviewed (Soft tissue edema. No DVT)
*Pulse Oximetry
SaO2: 98
Oxygen Mode of Delivery: Room air
Patient hypoxic: no
*Critical Care Note
Total Time (30-74mins, 75-104mins- exclusive of procedures): Not Applicable
Update Note
Update Note:
Discussed with vascular surgery. Refer early infectious issue although much of the inflammatory response is stable inflammation issues. Nothing to indicate admission or IV antibiotics. No DVT. Discharged to follow-up
ED Attending Note
-
Portions of this chart may have been created with voice recognition software.� Occasional wrong word or��sound alike� substitutions may have occurred due to the inherent limitations of voice recognition software.
Discharge Plan
Departure
Patient Disposition: Home (Routine Discharge)
Date of Disposition: 06/21/25
Time of Disposition: 16:25
Patient with high blood pressure during this ER visit?: Yes
Discharge Problem:
Postoperative leg swelling, Possible early cellulitis
Instructions: Wound Care (DC), Cellulitis (skin infection) in adults - ED (DC), BLOOD PRESSURE
Prescriptions:
New
doxycycline hyclate 100 mg capsule
100 mg PO BID 10 Days Qty: 20 0RF
No Action
levothyroxine 25 MCG tablet
12.5 mcg PO DAILY
atorvastatin 40 mg tablet
40 mg PO QPM Qty: 90 10RF
aspirin 81 mg Tablet,Delayed Release (Dr/Ec)
81 mg PO DAILY
cholecalciferol (vitamin D3) [Vitamin D3] 125 mcg (5,000 unit) Tablet
125 mcg PO DAILY
metoprolol succinate 25 mg tablet extended release 24 hr
25 mg PO DAILY
melatonin 1 mg/mL Liquid
1 mg PO HSPRN PRN (Reason: sleep)
multivitamin Tablet
1 tab PO DAILY
uvcvade-ufevzydbd-vnop Tablet
1 tab PO DAILY
ibuprofen [Advil] 200 mg Tablet
400 mg PO Q6H PRN (Reason: leg pain)
ashwagandha extract 500 mg Capsule
500 mg PO DAILY
Beberine
1 tab PO DAILY
Elderberry
1 cap PO DAILY
K2, D3
1 tab PO DAILY
[place] Q Plus Max
1 cap PO DAILY
oxycodone 5 mg Tablet
5 mg PO Q4HPRN PRN (Reason: moderate pain) Qty: 10 0RF
Referrals:
Max Barnett DO [Family Provider, Family Practice]
Activity Restrictions/Additional Instructions:
The prescription was sent to your pharmacy
Try to keep the leg elevated when resting
Call your vascular surgeon Monday for close follow-up
Return sooner with increased swelling redness fever drainage or any other concerning symptoms
Interventions
Interventions:
*Risk Screen - Suicide Last Done: 06/21/25 13:15
*Neglect/Abuse Screening Last Done: 06/21/25 13:15
Discharge Date and Time
Print Language: CONGOLESE
[2025-06-21] MEDS: VIBRAMYCIN 100 MG PO (16:32)
== END 2025-06-21 17:11 | disposition home or self-care (01) ==
LOC: EMR 13:06
PROVIDERS: EMERGENCY PHYSICIAN Emergency Medicine; FAMILY PHYSICIAN Family Medicine
DX: R22.42 Localized swelling, mass and lump, left lower limb (principal); L81.8 Other specified disorders of pigmentation; I25.10 Atherosclerotic heart disease of native coronary artery without angina pectoris; E03.9 Hypothyroidism, unspecified; Z96.641 Presence of right artificial hip joint; Z98.890 Other specified postprocedural states
CPT/HCPCS: 99284; 93970

== ENCOUNTER → 2025-07-16 11:15 | Outpatient (REF) | payer MEDICARE, OTHER, SELFPAY | LOC: RCS 11:15 | PROVIDERS: ATTENDING PHYSICIAN Student in an Organized Health Care Education/Training Program; FAMILY PHYSICIAN Family Medicine | DX: Z95.5 Presence of coronary angioplasty implant and graft (principal) | CPT/HCPCS: 93306 ==

== ENCOUNTER → 2025-07-25 11:02 | Outpatient (REF) | payer MEDICARE, OTHER, SELFPAY | LOC: RAD 11:02 | PROVIDERS: ATTENDING PHYSICIAN Registered Nurse; FAMILY PHYSICIAN Family Medicine | DX: I73.9 Peripheral vascular disease, unspecified (principal) | CPT/HCPCS: 93922; 93925 ==